=== PATIENT | female | born 1990 | race American Indian/Alaskan Native ===

== ENCOUNTER 2017-05-16 16:50 | Inpatient (IN) | payer MEDICAID ==
[2017-05-16 18:32] LABS: Hematocrit 34.3 % (30.3-42.9); Hemoglobin 11.7 gm/dl (10.1-14.3); Mean Corpuscular HGB Conc 34 % (30-34); Mean Corpuscular Hemoglobin 30 pg (28-32); Mean Corpuscular Volume 88 fl (79-97); Platelet Count 252 K/mm3 (140-440); Red Blood Count 3.88 M/mm3 (3.65-5.03); Red Cell Distribution Width 13.1 % (13.2-15.2); White Blood Count 8.1 K/mm3 (4.5-11.0)
[2017-05-16 18:39] LABS: Bilirubin,Urine NEG (Negative); Blood,Urine SM (Negative); Ketones,Urine NEG (Negative); Leukocyte Esterase,Urine SM (Negative); Mucus,Urine FEW /HPF; Nitrite,Urine NEG (Negative)
[2017-05-16 18:43] LABS: Alanine Aminotransferase 13 units/L (7-56); Lactate Dehydrogenase 150 units/L (91-180); Uric Acid 5.1 mg/dL (3.5-7.6)
[2017-05-16] MEDS: LACTATED RINGERS 1,000 ML IV SCH (21:45)
--- NOTE | 2017-05-16 21:56 | Ultrasound Report ---
FINAL REPORT EXAM: US OB FOLLOW UP HISTORY: CHRONIC HYPERTENSIVE TECHNIQUE: Obstetrical ultrasound transabdominal PRIORS: None. FINDINGS: Single live intrauterine gestation identified cardiac activity is present with heart rate of 162 beats per minute. Placenta is posterior and grade. Cervical length is 2.9 centimeters Positioning is cephalic biometric measurements were obtained Biparietal diameter 26 weeks 2 days Head circumference 26 weeks 5 days Abdominal circumference 26 weeks 2 days Femur length 26 weeks 0 days Based on today's exam estimated gestational age is 26 weeks 6 days with estimated date of delivery August 16, 2017 IMPRESSION: Single live intrauterine gestation estimated at 26 weeks 6 days
[2017-05-16] MEDS: NORMODYNE PO SCH (22:17)
[2017-05-17] MEDS: TYLENOL PO PRN ×2 (02:15→16:23)
[2017-05-17] MEDS: LACTATED RINGERS 1,000 ML IV SCH ×2 (05:26→15:58)
--- NOTE | 2017-05-17 06:49 | History and Physical Report ---
History of Present Illness Date of examination: 05/17/17 Date of admission: 05/16/17 21:14 Chief complaint: elevated BP in clinic. hx of severe preeclampsia and delviery at 27 weeks History of present illness: This is a 26 yo AMBER 08/13/17 at 27 weeks was seen in clinic and elevated BP noted of 158/82. She has been very non compliant in this only attending 3 visits at 11 weeks, 21 weeks and then most recently 27 weeks. She was sent to triage and had PIH w/u which was neg, but decided to keep patient for non compliance in which we were trying to send to [facility] for recommendations. 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 denies: smoking, alcohol abuse, prescription drug abuse - Obstetrical History Expected Date of Delivery: 08/13/17 Actual Gestation: 27 Week(s) 3 Day(s) : 8 Para: 4 Hx # Term Pregnancies: 4 Number of Pregnancies: 2 Spontaneous Abortions: 0 Induced : 1 Number of Living Children: 7 Medications and Allergies Allergies Allergy/AdvReac Type Severity Reaction Status Date / Time No Known Allergies Allergy Verified 04/10/17 22:14 Home Medications Medication Instructions Recorded Confirmed Last Taken Type Vit Calc,Iron,Folic 1 each PO DAILY #30 tablet 09/07/15 05/16/17 Unknown Rx [ Vitamins] Labetalol [Normodyne TAB] 400 mg PO BID #60 tablet 09/10/15 05/16/17 Unknown Rx NIFEdipine XL [Procardia Xl] 30 mg PO Q12HR #60 tab 09/12/15 05/16/17 Unknown Rx Active Meds: Active Medications Acetaminophen (Tylenol) 650 mg PO Q4H PRN PRN Reason: Pain, Mild (1-3) Last Admin: 05/17/17 02:15 Dose: 650 mg Lactated Ringer's (Lactated Ringers) 1,000 mls @ 125 mls/hr IV DIRECT KADI Last Admin: 05/17/17 05:26 Dose: 125 mls/hr Labetalol HCl (Normodyne) 400 mg PO BID KADI Last Admin: 05/16/17 22:17 Dose: 400 mg Review of Systems All systems: negative - Vital Signs Vital signs: Vital Signs Pulse BP 109 H 132/80 05/16/17 17:30 05/16/17 17:30 Temp Pulse Resp BP Pulse Ox 97.9 F 73 14 117/57 05/17/17 02:06 05/17/17 06:22 05/17/17 02:06 05/17/17 06:22 - Physical Exam Breasts: Positive: normal Cardiovascular: Regular rate, Normal S1 Lungs: Positive: Clear to auscultation, Normal air movement Abdomen: Positive: normal appearance, soft, normal bowel sounds. Negative: distention, tenderness, guarding Genitourinary (Female): Positive: normal external genitalia, normal perenium Vulva: both: normal Vagina: Positive: normal moisture Uterus: Positive: normal size, normal contour Anus/Rectum: Positive: normal perianal skin Extremities: Positive: normal Deep Tendon Reflex Grade: Normal +2 - Obstetrical FHR: category 1 Results Result Diagrams: 05/16/17 17:40 05/16/17 17:40 Abnormal lab results 05/16/17 05/16/17 Range/Units 17:40 17:40 RDW 13.1 L (13.2-15.2) % Creatinine 0.6 L (0.7-1.2) mg/dL All other labs normal. Ultrasound: report reviewed Assessment and Plan A/P HD#2 admitted IUP 27 weeks, non compliant, hx of preeclampsia, elevated BP in office PIH labs obtained [facility] consult ( Dr. vaca contacted) - patient very non compliant has not seen then despite multiple referrals US reviewed and noted US consistent with dates, GERARDO 15.2 , EFW 998 g FHR 162 cervical length 2.9cm, placental lakes NST q4hrs
[2017-05-17] MEDS: NORMODYNE PO SCH ×2 (10:45→22:41)
--- NOTE | 2017-05-17 14:17 | Consultation ---
History of Present Illness Consult date: 05/17/17 Requesting physician: MAGDA TURPIN History of present illness: Ms. Cuellar is a 26y/o AMBER 08/15/16 Sent in from OB's office with elevated BP's 158/82 on 26/04/17 Last PM in house BP's at 146/90 and 154/93 at 8 PM Reports HAGAN's over past couple weeks " -01/13 " Denies [place] RUQ Pain, Vag Bleeding Reports H/O CHTN since age 15 and was on Labetalol prior to -- Currently on Labetalol 400 BID BP's now 120'/60's, 125/60, 122/65. 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 Family/Genetic History: none - Obstetrical History : 8 Medications and Allergies Allergies Allergy/AdvReac Type Severity Reaction Status Date / Time No Known Allergies Allergy Verified 04/10/17 22:14 Home Medications Medication Instructions Recorded Confirmed Last Taken Type Vit Calc,Iron,Folic 1 each PO DAILY #30 tablet 09/07/15 05/16/17 Unknown Rx [ Vitamins] Labetalol [Normodyne TAB] 400 mg PO BID #60 tablet 09/10/15 05/16/17 Unknown Rx NIFEdipine XL [Procardia Xl] 30 mg PO Q12HR #60 tab 09/12/15 05/16/17 Unknown Rx Active Meds: Active Medications Acetaminophen (Tylenol) 650 mg PO Q4H PRN PRN Reason: Pain, Mild (1-3) Last Admin: 05/17/17 02:15 Dose: 650 mg Lactated Ringer's (Lactated Ringers) 1,000 mls @ 125 mls/hr IV DIRECT KADI Last Admin: 05/17/17 05:26 Dose: 125 mls/hr Labetalol HCl (Normodyne) 400 mg PO BID KADI Last Admin: 05/17/17 10:45 Dose: 400 mg - Vital Signs Vital signs: Vital Signs Pulse BP 109 H 132/80 05/16/17 17:30 05/16/17 17:30 Temp Pulse Resp BP Pulse Ox 96.2 F L 80 16 125/60 05/17/17 10:43 05/17/17 13:24 05/17/17 10:43 05/17/17 13:24 Results Result Diagrams: 05/16/17 17:40 05/16/17 17:40 Abnormal lab results 05/16/17 05/16/17 Range/Units 17:40 17:40 RDW 13.1 L (13.2-15.2) % Creatinine 0.6 L (0.7-1.2) mg/dL All other labs normal. Assessment and Plan Impression: 1. Mo IUP at 27 2/7 weeks with H/O CHTN 2. CHTN with Elevated BP's - R/O Preeclampsia 3. Prior H/O Preeclampsia at 27 weeks 4. Prior H/O PTD with Twins 5. Prior C/S 6. Non-Compliance with Follow Up Per OB Notes 7. Spont Decel X 2 Recommendations: 1. Obtain BPP 2. Continuous EFM 3. Steroids for FLM 4. If HAGAN's persisting and BP's normal would obtain Neuro Consult 5. 24 Hour urine pending 6. Confirm normal 1 Hour GTT done at ob's office 7. NICU consult 8. Continue Labetalol 9. If A-P testing remains reassuring and no S/S of Preeclampsia with severe features may consider dc tomorrow if patient can be compliant with weekly follow up and call for S/S of PIH
[2017-05-17] MEDS ORDERED: CELESTONE SOLUSPAN IM SCH (15:00)
[2017-05-17] MEDS ORDERED: ZOFRAN IV ONE (15:32)
[2017-05-17] MEDS: CELESTONE SOLUSPAN IM SCH (15:56)
[2017-05-17] MEDS ORDERED: LACTATED RINGERS 1,000 ML IV SCH (16:00)
--- NOTE | 2017-05-17 17:54 | Ultrasound Report ---
FINAL REPORT EXAM: US OB LIMITED HISTORY: well being TECHNIQUE: Ultrasound obstetrical transabdominal limited PRIORS: None. FINDINGS: Single live intrauterine gestation is present. Position is cephalic cardiac activity is present with heart rate of 154 beats per minute. Amniotic fluid volume is adequate. Amniotic fluid index 12.2 centimeters IMPRESSION: Single live intrauterine gestation in cephalic presentation Normal amniotic fluid index
--- NOTE | 2017-05-17 18:03 | Ultrasound Report ---
FINAL REPORT EXAM: US OB BPP WO NON-STRESS HISTORY: well being TECHNIQUE: Ultrasound biophysical profile PRIORS: None. FINDINGS: Single live intrauterine gestation is present with heart rate of 154 beats per minute Biophysical profile was performed respiratory motion 2 Body movement 2 tone 2 Amniotic fluid volume 2 Total 01/11 Impression Normal biophysical profile 01/11
--- NOTE | 2017-05-17 22:26 | Event Note ---
Date: 05/17/17 spoke with the nurse bp in 120-130/60-70s will decrease dose to 200 mg instead of 400 mg po bid in order to prevent bottom out patient. will reevaluate BP in am
[2017-05-18] MEDS: LACTATED RINGERS 1,000 ML IV SCH (08:02)
--- NOTE | 2017-05-18 09:28 | Consultation ---
History of Present Illness Consult date: 05/18/17 Requesting physician: TORY MOSES Reason for consult: gestational hypertension History of present illness: CONSULT BASED ON REVIEW OF MEDICAL RECORDS AND LAB TESTS. Thank you for your recent consultation regarding the above named patient. As you are aware, this is a 26 year old para [id number] at 27 weeks gestation (based on an estimated due date of 08/14/17 ) who was recently admitted for evaluation of elevated blood pressure [facility]. Previous BP: 158/82. Current BP: 115/54 The patient is currently being treated with labetalol at a dosage of 400 mg twice daily (while in the hospital). Her current admission is to rule out the possibility of induced hypertension. Her Labetalol was DECREASED from 400 BID to 200 BID overnight. Lab tests and blood pressure trend DO NOT suggest preeclampsia. The patient currently denies headache dizziness or blurred vision. PAST OBSTETRICAL HISTORY: X 4 in , , , 2012 Vag Del Twins at 27 weeks PPROM 2016 C/S at 27 weeks for Preeclampsia Recent blood pressure assessments: 124/58 and 115/54 Recent 24 hour urine shows: < 300 mg of protein. LABORATORY TESTS: See labs in chart. No evidence of HELLP syndrome 24 HOUR URINE: < 300 mg protein. 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 Family/Genetic History: none - Obstetrical History : 8 Medications and Allergies Allergies Allergy/AdvReac Type Severity Reaction Status Date / Time No Known Allergies Allergy Verified 04/10/17 22:14 Home Medications Medication Instructions Recorded Confirmed Last Taken Type Vit Calc,Iron,Folic 1 each PO DAILY #30 tablet 09/07/15 05/16/17 Unknown Rx [ Vitamins] Labetalol [Normodyne TAB] 400 mg PO BID #60 tablet 09/10/15 05/16/17 Unknown Rx NIFEdipine XL [Procardia Xl] 30 mg PO Q12HR #60 tab 09/12/15 05/16/17 Unknown Rx Active Meds: Active Medications Acetaminophen (Tylenol) 650 mg PO Q4H PRN PRN Reason: Pain, Mild (1-3) Last Admin: 05/17/17 16:23 Dose: 650 mg Betamethasone Acet/Betameth SodPhos (Celestone Soluspan) 12 mg IM Q24H KADI Stop: 05/18/17 15:01 Last Admin: 05/17/17 15:56 Dose: 12 mg Lactated Ringer's (Lactated Ringers) 1,000 mls @ 125 mls/hr IV DIRECT KADI Last Admin: 05/18/17 08:02 Dose: 125 mls/hr Lactated Ringer's (Lactated Ringers) 1,000 mls @ 125 mls/hr IV DIRECT KADI Labetalol HCl (Normodyne) 200 mg PO BID KADI Last Admin: 05/17/17 22:41 Dose: 200 mg - Vital Signs Vital signs: Vital Signs Pulse BP 109 H 132/80 05/16/17 17:30 05/16/17 17:30 Temp Pulse Resp BP Pulse Ox 97.8 F 97 H 16 135/67 98 05/18/17 07:26 05/18/17 09:26 05/18/17 07:26 05/18/17 09:15 05/18/17 09:26 Results Result Diagrams: 05/16/17 17:40 05/16/17 17:40 Abnormal lab results 05/17/17 Range/Units 22:44 Ur Total Protein 24 Hr 224.00 H (2-200) Urine Total Protein 16 H (5-11.8) mg/dL All other labs normal. Assessment and Plan ASSESSMENT 1. IUP at 27 weeks transiently elevated blood pressure . 2. 24 hour urine shows: < 300 mg of protein 3. No current evidence of superimposed preeclampsia. 4. Transient decelerations likely due to overcorrection of BP for CHTN. 5. BPP: Normal. Normal GERARDO. 6. Obstetrically Stable for DISCHARGE HOME 7. Patient complete another 24 hour urine as an outpatient within one week. 8. Patient has MILD preeclampsia but no evidence of SEVERE preeclampsia. 9. Patient is STABLE and a suitable candidate for DISCHARGE HOME. 10. We would recommend 2 time per week surveillance. 11. As you are aware: a. In a patient with MILD preeclampsia we recommend DELIVERY at 37 weeks. b. In a patient with SEVERE preeclampsia we recommend DELIVERY either AT DIAGNOSIS or at 34 weeks gestation. 12. As always, the recommendation for discontinuation of expectant management and DELIVERY in this patient would include ANY of the following: heart rate abnormalities, (ie, bradycardia , repetitive late or variable decelerations) Significant new onset proteinuria (see above) Thrombocytopenia Hemolysis, Elevation in liver function tests Blood pressure that is very labile or poorly controlled with reasonable doses of intravenous labetalol Symptoms of severe pre-eclampsia epigastric discomfort, headache, dizziness , blurred vision, RUQ pain, seizure. Standard obstetrical indications Thank you for allowing us to participate in the care of this patient. We look forward to the opportunity to assist in her continued management. If you have any questions, we may be reached [phone].
[2017-05-18] MEDS: NORMODYNE PO SCH (10:47)
--- NOTE | 2017-05-18 11:59 | Progress Note ---
Assessment and Plan A: IUP at 27w4d Gestational HTN Morbid Obesity P: Discharge home with MFM and OB follow up in the next week. Subjective - Subjective Date of service: 05/18/17 Principal diagnosis: IUP at 27w4d, gestational HTN Interval history: No overnight events .Pt would like to go home. She was seen by MFM who agree with hospital discharge. Patient reports: no new complaints Objective - Vital Signs Vital Signs: Vital Signs - 12hr 05/18/17 05/18/17 05/18/17 00:07 00:17 00:22 Temperature Pulse Rate 93 H 98 H 84 Respiratory Rate Blood Pressure Blood Pressure [Right] O2 Sat by Pulse 98 98 97 Oximetry 05/18/17 05/18/17 05/18/17 00:23 00:27 00:32 Temperature Pulse Rate 92 H 95 H 91 H Respiratory Rate Blood Pressure 130/61 Blood Pressure [Right] O2 Sat by Pulse 98 98 Oximetry 05/18/17 05/18/17 05/18/17 00:37 00:42 00:47 Temperature Pulse Rate 100 H 91 H 92 H Respiratory Rate Blood Pressure Blood Pressure [Right] O2 Sat by Pulse 98 97 97 Oximetry 05/18/17 05/18/17 05/18/17 00:52 00:57 01:02 Temperature Pulse Rate 98 H 77 93 H Respiratory Rate Blood Pressure Blood Pressure [Right] O2 Sat by Pulse 98 98 99 Oximetry 05/18/17 05/18/17 05/18/17 01:07 01:12 01:17 Temperature Pulse Rate 100 H 90 89 Respiratory Rate Blood Pressure Blood Pressure [Right] O2 Sat by Pulse 98 99 97 Oximetry 05/18/17 05/18/17 05/18/17 01:22 01:27 01:32 Temperature Pulse Rate 89 92 H 88 Respiratory Rate Blood Pressure 133/65 Blood Pressure [Right] O2 Sat by Pulse 98 98 97 Oximetry 05/18/17 05/18/17 05/18/17 01:37 01:42 01:47 Temperature Pulse Rate 94 H 89 82 Respiratory Rate Blood Pressure Blood Pressure [Right] O2 Sat by Pulse 98 98 98 Oximetry 05/18/17 05/18/17 05/18/17 01:52 01:57 02:02 Temperature Pulse Rate 77 91 H 75 Respiratory Rate Blood Pressure Blood Pressure [Right] O2 Sat by Pulse 97 98 98 Oximetry 05/18/17 05/18/17 05/18/17 02:07 02:12 02:17 Temperature Pulse Rate 91 H 77 88 Respiratory Rate Blood Pressure Blood Pressure [Right] O2 Sat by Pulse 98 98 98 Oximetry 05/18/17 05/18/17 05/18/17 02:22 02:27 02:32 Temperature Pulse Rate 76 84 74 Respiratory Rate Blood Pressure 124/59 Blood Pressure [Right] O2 Sat by Pulse 98 96 97 Oximetry 05/18/17 05/18/17 05/18/17 02:37 02:42 02:47 Temperature Pulse Rate 71 76 78 Respiratory Rate Blood Pressure Blood Pressure [Right] O2 Sat by Pulse 98 97 96 Oximetry 05/18/17 05/18/17 05/18/17 02:52 03:05 03:09 Temperature 97.9 F Pulse Rate 91 H 76 91 H Respiratory 18 Rate Blood Pressure Blood Pressure 124/59 [Right] O2 Sat by Pulse 96 98 Oximetry 05/18/17 05/18/17 05/18/17 03:18 03:22 03:23 Temperature Pulse Rate 78 91 H 92 H Respiratory Rate Blood Pressure 134/68 Blood Pressure [Right] O2 Sat by Pulse 98 96 Oximetry 05/18/17 05/18/17 05/18/17 03:28 03:33 03:38 Temperature Pulse Rate 82 76 88 Respiratory Rate Blood Pressure Blood Pressure [Right] O2 Sat by Pulse 97 96 96 Oximetry 05/18/17 05/18/17 05/18/17 03:43 03:48 03:53 Temperature Pulse Rate 87 87 76 Respiratory Rate Blood Pressure Blood Pressure [Right] O2 Sat by Pulse 96 96 96 Oximetry 05/18/17 05/18/17 05/18/17 03:58 04:03 04:08 Temperature Pulse Rate 83 99 H 95 H Respiratory Rate Blood Pressure Blood Pressure [Right] O2 Sat by Pulse 97 97 97 Oximetry 05/18/17 05/18/17 05/18/17 04:13 04:18 04:23 Temperature Pulse Rate 82 84 90 Respiratory Rate Blood Pressure 121/60 Blood Pressure [Right] O2 Sat by Pulse 97 97 95 Oximetry 05/18/17 05/18/17 05/18/17 04:29 04:34 04:39 Temperature Pulse Rate 101 H 80 78 Respiratory Rate Blood Pressure Blood Pressure [Right] O2 Sat by Pulse 95 97 97 Oximetry 05/18/17 05/18/17 05/18/17 04:44 04:49 04:54 Temperature Pulse Rate 76 74 71 Respiratory Rate Blood Pressure Blood Pressure [Right] O2 Sat by Pulse 97 96 96 Oximetry 05/18/17 05/18/17 05/18/17 04:59 05:04 05:09 Temperature Pulse Rate 80 81 85 Respiratory Rate Blood Pressure Blood Pressure [Right] O2 Sat by Pulse 97 97 96 Oximetry 05/18/17 05/18/17 05/18/17 05:14 05:19 05:22 Temperature Pulse Rate 82 82 76 Respiratory Rate Blood Pressure 124/58 Blood Pressure [Right] O2 Sat by Pulse 96 96 Oximetry 05/18/17 05/18/17 05/18/17 05:24 06:30 06:35 Temperature Pulse Rate 88 96 H 72 Respiratory Rate Blood Pressure Blood Pressure [Right] O2 Sat by Pulse 96 99 98 Oximetry 05/18/17 05/18/17 05/18/17 06:40 06:45 06:50 Temperature Pulse Rate 78 94 H 86 Respiratory Rate Blood Pressure Blood Pressure [Right] O2 Sat by Pulse 99 98 98 Oximetry 05/18/17 05/18/17 05/18/17 06:55 07:00 07:05 Temperature Pulse Rate 73 83 72 Respiratory Rate Blood Pressure Blood Pressure [Right] O2 Sat by Pulse 96 96 97 Oximetry 05/18/17 05/18/17 05/18/17 07:10 07:15 07:20 Temperature Pulse Rate 73 75 72 Respiratory Rate Blood Pressure Blood Pressure [Right] O2 Sat by Pulse 97 97 97 Oximetry 05/18/17 05/18/17 05/18/17 07:22 07:25 07:26 Temperature 97.8 F Pulse Rate 85 82 76 Respiratory 16 Rate Blood Pressure 115/54 Blood Pressure 115/54 [Right] O2 Sat by Pulse 96 97 Oximetry 05/18/17 05/18/17 05/18/17 07:30 07:35 07:40 Temperature Pulse Rate 71 75 85 Respiratory Rate Blood Pressure Blood Pressure [Right] O2 Sat by Pulse 97 97 98 Oximetry 05/18/17 05/18/17 05/18/17 07:45 07:50 07:55 Temperature Pulse Rate 107 H 89 82 Respiratory Rate Blood Pressure Blood Pressure [Right] O2 Sat by Pulse 97 97 97 Oximetry 05/18/17 05/18/17 05/18/17 08:00 08:05 08:10 Temperature Pulse Rate 81 76 61 Respiratory Rate Blood Pressure Blood Pressure [Right] O2 Sat by Pulse 97 97 97 Oximetry 05/18/17 05/18/17 05/18/17 08:15 08:20 09:15 Temperature Pulse Rate 78 94 H 96 H Respiratory Rate Blood Pressure 135/67 Blood Pressure [Right] O2 Sat by Pulse 97 98 Oximetry 05/18/17 05/18/17 05/18/17 09:16 09:21 09:26 Temperature Pulse Rate 96 H 97 H 97 H Respiratory Rate Blood Pressure Blood Pressure [Right] O2 Sat by Pulse 98 99 98 Oximetry 05/18/17 05/18/17 05/18/17 09:31 09:36 09:41 Temperature Pulse Rate 88 83 87 Respiratory Rate Blood Pressure Blood Pressure [Right] O2 Sat by Pulse 98 98 99 Oximetry 05/18/17 05/18/17 05/18/17 09:46 09:51 09:56 Temperature Pulse Rate 92 H 87 85 Respiratory Rate Blood Pressure Blood Pressure [Right] O2 Sat by Pulse 98 98 98 Oximetry 05/18/17 05/18/17 05/18/17 10:01 10:06 10:11 Temperature Pulse Rate 82 89 85 Respiratory Rate Blood Pressure Blood Pressure [Right] O2 Sat by Pulse 99 98 98 Oximetry 05/18/17 05/18/17 05/18/17 10:14 10:16 10:21 Temperature Pulse Rate 86 84 83 Respiratory Rate Blood Pressure 116/54 Blood Pressure [Right] O2 Sat by Pulse 98 98 Oximetry 05/18/17 05/18/17 05/18/17 10:26 10:47 10:50 Temperature Pulse Rate 92 H 112 H 85 Respiratory Rate Blood Pressure 123/70 Blood Pressure [Right] O2 Sat by Pulse 98 100 Oximetry 05/18/17 05/18/17 05/18/17 10:51 10:55 11:00 Temperature Pulse Rate 90 97 H 85 Respiratory Rate Blood Pressure 123/70 Blood Pressure [Right] O2 Sat by Pulse 99 99 Oximetry 05/18/17 11:14 Temperature Pulse Rate 85 Respiratory Rate Blood Pressure 118/57 Blood Pressure [Right] O2 Sat by Pulse Oximetry - Exam Breasts: deferred Abdomen: Present: soft (gravid,obese ) Uterus: Present: normal (gravid ) FHR: auscultation normal Uterine Contraction Monitor Mode: Palpation Uterine Contraction Pattern: Absent Uterine Tone Measurement Phase: Resting - Labs Labs: Abnormal Labs 05/16/17 05/16/17 05/17/17 17:40 17:40 22:44 RDW 13.1 L Creatinine 0.6 L Ur Total Protein 24 Hr 224.00 H Urine Total Protein 16 H Laboratory Results - last 24 hr 05/17/17 22:44 Urine Total Volume 1400 Ur Total Protein 24 Hr 224.00 H Urine Total Protein 16 H
[2017-05-18 14:12] VITALS: BP 134/73
--- NOTE | 2017-05-18 14:15 | Discharge Summary ---
Providers - Providers Date of Admission: 05/18/17 08:21 Date of discharge: 05/18/17 Attending physician: MAGDA TURPIN MD 05/16/17 21:20 Consult to Physician [CONS] Urgent Consulting Provider: SABRINA SANTANA Reason For Exam: CHRONIC HYPERTENSION NONCOMPLIANT Place consult to:: [facility] Notified:: [employer] Phone number called:: [phone] 05/18/17 06:11 Consult to Physician [CONS] Routine Consulting Provider: Reason For Exam: Hypertension, 27 weeks, hx ptd, Place consult to:: [facility] Phone number called:: [phone] Was contact made?: Yes If yes, spoke with:: Demar Burroughs Time called:: 06:00 Primary care physician: MAGDA TURPIN MD Hospitalization Reason for admission: other (elevated blood pressure ) Procedure details: Anti-hypertensive medication, betamethasone x 2 Discharge diagnosis: other (IUP at 27 wks, gestational HTN, morbid obesity ) Hospital course: Pt was admitted for blood pressure control. She was started on oral labetalol and had two doses of betamethasone before discharge. She will follow up with MFM and at [place] [facility] within one week. Condition at discharge: Stable Disposition: DC-01 TO HOME OR SELFCARE - Discharge Diagnoses (1) Status: Acute Qualifiers: Weeks of gestation: 27 weeks Qualified Code(s): Z3A.27 - 27 weeks gestation of (2) Morbid obesity Status: Acute (3) Gestational HTN Status: Acute (4) Chronic hypertension Status: Acute Plan - Discharge Medications Prescriptions: Labetalol [Normodyne TAB] 200 mg PO BID #60 tablet - Provider Discharge Summary Activity: routine Diet: routine Instructions: routine Additional instructions: [] Smoking cessation referral if applicable(refer to patient education folder for contact #) [] Refer to [facility] Booklet Call your doctor immediately for: * Fever > 100.5 * Heavy vaginal bleeding ( >1 pad per hour) * Severe persistent headache * Shortness of breath * Reddened, hot, painful area to leg or breast * Drainage or odor from incision. * Keep incision clean and dry at all times and follow doctor's instructions regarding bathing/showering - Follow up plan Follow up: MAGDA TURPIN MD [Primary Care Provider] - 05/23/17 ZACH GILLETTE MD [Staff Physician] - 05/23/17 ()
[2017-05-18] MEDS: CELESTONE SOLUSPAN IM SCH (14:51)
== END 2017-05-18 15:20 | disposition home or self-care (01) | DRG 781 ==
LOC: TRG 16:50 → LD 21:14 → OBSVTOIN 05-18 08:21
PROVIDERS: ADMIT Obstetrics & Gynecology; ATTEND Obstetrics & Gynecology
DX: O11.2 Pre-existing hypertension with pre-eclampsia, second trimester (principal); O99.512 Diseases of the respiratory system complicating pregnancy, second trimester; E66.01 Morbid (severe) obesity due to excess calories; J45.909 Unspecified asthma, uncomplicated; O76 Abnormality in fetal heart rate and rhythm complicating labor and delivery; Z3A.27 27 weeks gestation of pregnancy; Z68.41 Body mass index [BMI] 40.0-44.9, adult; Z71.3 Dietary counseling and surveillance; Z79.899 Other long term (current) drug therapy; Z91.19 Patient's noncompliance with other medical treatment and regimen; O10.012 Pre-existing essential hypertension complicating pregnancy, second trimester
CPT/HCPCS: 36415; 59025; 76815; 76816; 76819; 81001; 82565; 83615; 84156; 84450; 84460; 84550; 85027; G0378; J0702; J7120

== ENCOUNTER 2017-06-17 17:29 | Observation (INO) | payer MEDICAID ==
[2017-06-17] MEDS ORDERED: APRESOLINE IV ONE (18:47)
--- NOTE | 2017-06-17 19:47 | Ultrasound Report ---
FINAL REPORT PROCEDURE: US OB BPP WO NON-STRESS TECHNIQUE: Sonographic evaluation for breathing, movement, tone, and amniotic fluid volume was performed. CPT 12585 HISTORY: well being COMPARISON: No prior studies are available for comparison. FINDINGS: heart rate of 150 beats per minute was detected. Amniotic fluid volume: Normal-score 2. At least one vertical pocket > 2 cm or more in vertical axis. breathing: Normal-score 2. movement: Normal-score 2. tone: Normal. Score: 8 of 8. Further evaluation was neither requested nor performed. IMPRESSION: Limited study shows biophysical profile score of 8/8. heart rate of 150 beats per minute was detected. Further evaluation was neither requested nor performed.
--- NOTE | 2017-06-17 19:58 | Ultrasound Report ---
FINAL REPORT PROCEDURE: US OB FOLLOW UP TECHNIQUE: Real-time sonography performed for focused follow-up or re-evaluation of each size/growth parameters and amniotic fluid or re-evaluation of suspected or confirmed abnormality on prior imaging. CPT 75517 HISTORY: well being COMPARISON: Prior study 05/17/2017 FINDINGS: There is a single living intrauterine gestation currently visualized in the vertex presentation with a heart rate of 150 beats per minute. Subjectively the amount of amniotic fluid appears low normal to mildly decreased. The amniotic fluid index is 8 centimeters. The placenta is located right lateral and is grade 1. On the images provided there is no evidence of placenta abruption or placenta previa. Cervix length 3.2 centimeters. Detailed exam of the anatomy was not performed as this was not requested. MEASUREMENTS BPD: 7.8 centimeter equals 31 week 2 days. HC: 29.4 centimeter equaled 32 week 3 days. AC: 26.6 centimeter equaled 30 weeks 4 days. FL: 6.1 centimeter equaled 31 week 5 days. Mean Gestational Age (composite criteria): 31 weeks 3 days. Estimated Weight: 1725 grams +/-100 50 grams. Interval growth: Appropriate . Estimated Due Date (earliest scan): 08/16/2017 plus or minus 2.5 weeks. IMPRESSION: Single living intrauterine gestation visualized. There has been appropriate interval growth. Estimated date confinement remains at 3:13 2017 +/-2.5 weeks. Subjectively amniotic fluid volume low normal to minimally decreased. The amniotic fluid index is low normal. Consider follow-up exam to ensure adequate amniotic fluid.
[2017-06-17 20:19] LABS: Hematocrit 34.7 % (30.3-42.9); Hemoglobin 11.9 gm/dl (10.1-14.3); Mean Corpuscular HGB Conc 34 % (30-34); Mean Corpuscular Hemoglobin 29 pg (28-32); Mean Corpuscular Volume 86 fl (79-97); Platelet Count 286 K/mm3 (140-440); Red Blood Count 4.06 M/mm3 (3.65-5.03); Red Cell Distribution Width 13.3 % (13.2-15.2)
[2017-06-17] MEDS: LACTATED RINGERS 1,000 ML IV SCH (20:25)
[2017-06-17 20:30] LABS: INR 0.95 (0.87-1.13)
[2017-06-17 20:31] LABS: Partial Thromboplastin Time 30.3 Sec. (24.2-36.6)
[2017-06-17 20:40] LABS: Alanine Aminotransferase 8 units/L (7-56)
[2017-06-18] MEDS: LACTATED RINGERS 1,000 ML IV SCH (04:49)
[2017-06-18] MEDS ORDERED: NORMODYNE PO SCH (08:00)
--- NOTE | 2017-06-18 09:02 | History and Physical Report ---
History of Present Illness Date of examination: 06/18/17 Date of admission: 06/17/17 19:49 Chief complaint: s/p falling 2 days ago and elevated BP History of present illness: 26 yo at 31+4 weeks here for s/p fall 2 days ago and elevated BP. She is a patient of [facility] with hx of chronic HTN on labetolol. Past History Past Medical History: hypertension Past Surgical History: section Family/Genetic History: none Social history: single. denies: smoking, alcohol abuse, prescription drug abuse - Obstetrical History Expected Date of Delivery: 08/13/17 Actual Gestation: 32 Week(s) 0 Day(s) : 8 Para: 7 Hx # Term Pregnancies: 5 Number of Pregnancies: 2 Spontaneous Abortions: 0 Induced : 0 Number of Living Children: 7 Medications and Allergies Allergies Allergy/AdvReac Type Severity Reaction Status Date / Time No Known Allergies Allergy Verified 04/10/17 22:14 Home Medications Medication Instructions Recorded Confirmed Last Taken Type Vit Calc,Iron,Folic 1 each PO DAILY #30 tablet 09/07/15 06/17/17 10:00 Rx [ Vitamins] Labetalol [Normodyne TAB] 400 mg PO BID #60 tablet 09/10/15 06/17/17 Unknown Rx NIFEdipine XL [Procardia Xl] 30 mg PO Q12HR #60 tab 09/12/15 06/17/17 Unknown Rx Labetalol [Normodyne TAB] 200 mg PO BID #60 tablet 05/18/17 06/17/17 06/17/17 19 :00 Rx 200 mg Active Meds: Active Medications Lactated Ringer's (Lactated Ringers) 1,000 mls @ 125 mls/hr IV DIRECT [facility] Last Admin: 06/18/17 04:49 Dose: 125 mls/hr Labetalol HCl (Normodyne) 200 mg PO BID [facility] Last Admin: 06/18/17 08:07 Dose: 200 mg Review of Systems All systems: negative - Vital Signs Vital signs: Vital Signs Pulse BP 100 H 169/105 06/17/17 17:49 06/17/17 17:49 Temp Pulse Resp BP Pulse Ox 97.2 F L 77 20 142/83 99 06/18/17 07:39 06/18/17 08:53 06/18/17 07:39 06/18/17 08:33 06/18/17 08:53 - Physical Exam Breasts: Positive: normal Cardiovascular: Regular rate, Normal S1 Lungs: Positive: Clear to auscultation, Normal air movement Abdomen: Positive: normal appearance, soft, normal bowel sounds. Negative: distention, tenderness, guarding Genitourinary (Female): Positive: normal external genitalia, normal perenium Vulva: both: normal Uterus: Positive: normal size Adnexa: both: normal Anus/Rectum: Positive: normal perianal skin Extremities: Positive: normal Deep Tendon Reflex Grade: Normal +2 - Obstetrical FHR: category 1 Results Result Diagrams: 06/17/17 19:52 06/17/17 19:52 Abnormal lab results 06/17/17 Range/Units 19:52 Creatinine 0.4 L (0.7-1.2) mg/dL All other labs normal. Ultrasound: report reviewed Assessment and Plan A/P HD#1 s/p fall with elevated BP US reviewed PIH w/u and 24 hr urine continue labetolol 200 mg po bid IV hydralazine 160/110 continuous monitoring MFM consult close monitor of and maternal status
--- NOTE | 2017-06-18 11:20 | Consultation ---
History of Present Illness Consult date: 06/18/17 Requesting physician: MAGDA TURPIN History of present illness: HPI 26 y/o EGA at 32 0/7 weeks presented after fall at home. Known H/O CHTN Fall in kitchen 3 days ago on Right side. Denies vag bleeding, leaking or ctx's Pain on Side increasing "8/10" and presented to [facility] yesterday 06/17/17. US neg for abruption - EFW at 1725 grams 25% BPP 01/11 Pain now states Pain resolved H/P CHTN since age 15ex BP's on admission were elevated 170's/90's - Received IV hydralazine per nurse (Also H/O Preeclampsia and Induction at 27 weeks in 2015) Currently on Labetalol 200 BID BP's now 128/58 , 159/77, 153/73 States she received steroids 2 weeks ago when admitted for elevated BP's - reports 24 hour urine done and "normal" Denies HAGAN's Scotoma or RUQ Pain Abd NT gravid No RUQ Pain DTR's 2/4 no clonus PIH Labs Normal H/H 11.9/34 Plts at 286 AST/ALT at 04/13 OB History X 4 at term in , , , - no comps except for CHTN age 15 2012 Vag Del Twins 27 weeks PPROM 2016 Induced Vag del 27 weeks preeclampsia No STD No C/D/D NKA No surg Past History Past Medical History: hypertension Past Surgical History: section Family/Genetic History: none - Obstetrical History : 7 Medications and Allergies Allergies Allergy/AdvReac Type Severity Reaction Status Date / Time No Known Allergies Allergy Verified 04/10/17 22:14 Home Medications Medication Instructions Recorded Confirmed Last Taken Type Vit Calc,Iron,Folic 1 each PO DAILY #30 tablet 09/07/15 06/17/17 10:00 Rx [ Vitamins] Labetalol [Normodyne TAB] 400 mg PO BID #60 tablet 09/10/15 06/17/17 Unknown Rx NIFEdipine XL [Procardia Xl] 30 mg PO Q12HR #60 tab 09/12/15 06/17/17 Unknown Rx Labetalol [Normodyne TAB] 200 mg PO BID #60 tablet 05/18/17 06/17/17 06/17/17 19 :00 Rx 200 mg Active Meds: Active Medications Lactated Ringer's (Lactated Ringers) 1,000 mls @ 125 mls/hr IV DIRECT [facility] Last Admin: 06/18/17 04:49 Dose: 125 mls/hr Labetalol HCl (Normodyne) 200 mg PO BID [facility] Last Admin: 06/18/17 08:07 Dose: 200 mg - Vital Signs Vital signs: Vital Signs Pulse BP 100 H 169/105 06/17/17 17:49 06/17/17 17:49 Temp Pulse Resp BP Pulse Ox 97.2 F L 93 H 20 137/66 98 06/18/17 07:39 06/18/17 11:08 06/18/17 07:39 06/18/17 11:03 06/18/17 11:08 Results Result Diagrams: 06/17/17 19:52 06/17/17 19:52 Abnormal lab results 06/17/17 Range/Units 19:52 Creatinine 0.4 L (0.7-1.2) mg/dL All other labs normal. Assessment and Plan Impression: 1. Mo IUP at 32 0/7 weeks 2. S/P Fall - Pain Resolved 3. CHTN 4. H/O Superimposed Preeclampsia at 27 weeks Recommendations: 1. Would increase Labetalol from 200 to 300 mg BID 2. 24 Hour urine pending - May DC home when complete or earlier if she can collect it at home 3. Delivery recommended at 37 weeks or earlier for S/S of Severe Preeclampsia or compromise 4. PIH labs q week 5. Call for S/S of PIH or DFM's 6. Weekly A-P surveillance with [facility] 7. Continue baby aspirin 81 mg q day 8. Should have BP's taken 3X per week at ob, pharm and or [facility]
[2017-06-18 13:02] VITALS: BP 147/86
[2017-06-18 23:14] LABS: Creatinine 24 Hour,Urine 1.6 (0.8-2.8); Creatinine,Urine 82.9 mg/dL (0.1-20.0)
== END 2017-06-18 14:00 | disposition home or self-care (01) ==
LOC: TRG 17:29 → LD 19:49 → TRG 19:49
PROVIDERS: ADMIT Obstetrics & Gynecology; ATTEND Obstetrics & Gynecology
DX: O13.3 Gestational [pregnancy-induced] hypertension without significant proteinuria, third trimester (principal); Z3A.31 31 weeks gestation of pregnancy
CPT/HCPCS: 36415; 76816; 76819; 82565; 82570; 83615; 84156; 84450; 84460; 84550; 85027; 85610; 85730; 86850; 86900; 86901; 96361; 96374; G0378; J0360; J7120

== ENCOUNTER 2017-07-04 08:06 | Inpatient (IN) | payer MEDICAID ==
[2017-07-04] MEDS ORDERED: APRESOLINE IV ONE ×2 (08:49→16:43)
[2017-07-04 09:17] LABS: Bilirubin,Urine NEG (Negative); Blood,Urine MOD (Negative); Color,Urine Yellow (Yellow); Mucus,Urine 3+ /HPF; Nitrite,Urine NEG (Negative)
[2017-07-04] MEDS ORDERED: ZOFRAN IV PRN ×2 (09:22→15:00)
[2017-07-04] MEDS ORDERED: TYLENOL PO PRN (09:22)
[2017-07-04] MEDS ORDERED: CALCIUM GLUCONATE IV ONE (09:22)
[2017-07-04 09:36] LABS: Hematocrit 35.3 % (30.3-42.9); Mean Corpuscular HGB Conc 34 % (30-34); Mean Corpuscular Hemoglobin 29 pg (28-32); Mean Corpuscular Volume 85 fl (79-97); Platelet Count 249 K/mm3 (140-440); Red Blood Count 4.16 M/mm3 (3.65-5.03); Red Cell Distribution Width 13.2 % (13.2-15.2)
[2017-07-04] MEDS: LACTATED RINGERS 1,000 ML IV SCH ×2 (09:45→14:10)
[2017-07-04 09:53] LABS: Alanine Aminotransferase 10 units/L (7-56)
[2017-07-04] MEDS ORDERED: LACTATED RINGERS 1,000 ML IV SCH (10:00)
[2017-07-04] MEDS ORDERED: PRENATAL VITAMIN PO SCH (10:00)
[2017-07-04 10:29] LABS: Uric Acid 6.9 mg/dL (3.5-7.6)
[2017-07-04] MEDS ORDERED: MAGNESIUM SULFATE 40GM/1000ML 40 GM/1,000 ML BAG IV SCH (11:00)
[2017-07-04] MEDS ORDERED: CELESTONE SOLUSPAN IM SCH (11:00)
[2017-07-04] MEDS ORDERED: MAGNESIUM SULFATE 4GM/100ML 4 GM/100 ML BAG IV ONE (11:00)
[2017-07-04] MEDS ORDERED: LACTATED RINGERS 500 ML IV ONE (11:17)
[2017-07-04] MEDS ORDERED: MAGNESIUM SULFATE 40 GM in NACL 0.9% 1000 ML 1,000 ML IV SCH (11:30)
--- NOTE | 2017-07-04 11:37 | Ultrasound Report ---
BIOPHYSICAL PROFILE: INDICATION: Elevated blood pressure, 34 weeks IUP. COMPARISON: 06/17/2017. TECHNIQUE: Transabdominal ultrasound with Doppler interrogation. 2 - breathing movements 2 - movements 2 - posture and tone 2 - Qualitative amniotic fluid volume 8 - TOTAL SCORE OF POSSIBLE 8 Heart Rate (bpm) 145 CONCLUSION: Findings, as above.
[2017-07-04] MEDS ORDERED: NORMODYNE IV ONE (12:00)
[2017-07-04] MEDS ORDERED: CALCIUM GLUCONATE 1,000 MG in NACL 0.9% 100 ML IV ONE (12:00)
[2017-07-04] MEDS ORDERED: NORMODYNE PO ONE (12:00)
--- NOTE | 2017-07-04 13:30 | Consultation ---
History of Present Illness Reason for consult: other (Patient is 26 yo BF Presented to Labor & Delivery 07/04/17 for lower ABD pain . Patient followed by [facility] for CHTN, Morbid Obesity, and History of Superimposed PreEclampsia at 27 weeks. [facility] appointment on 06/30/17 33.5 weeks EFW 1987 gm 4'6" ( 14%) Bilateral Ventriculomegaly BPP of 10/10 . NIPT was performed -awaiting result . 06/30/17 BP was 146/81 mm Hg under Labetalol 200 mg PO BID. 07/04/17 During [facility] consultation S/P hydralazine and Labetlol SIVP BP of 190/109 mm Hg , patient reported increased H/A and edema . Positive urine output. Patient denied scotoma, epigastric pain , visual changes , and N/V . Rescue dose of BMZ for 07/04/17 @ 1039 am .) Past History - Obstetrical History : 7 Medications and Allergies Allergies Allergy/AdvReac Type Severity Reaction Status Date / Time No Known Allergies Allergy Verified 04/10/17 22:14 Home Medications Medication Instructions Recorded Confirmed Last Taken Type Vit Calc,Iron,Folic 1 each PO DAILY #30 tablet 09/07/15 07/04/17 1 Day Ago Rx [ Vitamins] ~07/03/17 Labetalol [Normodyne TAB] 200 mg PO BID #60 tablet 05/18/17 07/04/17 07/04/17 06 :30 Rx Active Meds: Active Medications Acetaminophen (Tylenol) 650 mg PO Q4H PRN PRN Reason: Pain MILD(1-3)/Fever >100.5/HAGAN Betamethasone Acet/Betameth SodPhos (Celestone Soluspan) 12 mg IM Q24H [facility] Stop: 07/05/17 11:01 Last Admin: 07/04/17 10:35 Dose: 12 mg Docusate Sodium (Colace) 100 mg PO Q12H PRN PRN Reason: Constipation Lactated Ringer's (Lactated Ringers) 1,000 mls @ 125 mls/hr IV DIRECT [facility] Last Admin: 07/04/17 09:45 Dose: 125 mls/hr Lactated Ringer's (Lactated Ringers) 1,000 mls @ 125 mls/hr IV DIRECT [facility] Magnesium Sulfate 40 gm/ (Sodium Chloride) 1,080 mls @ 27 mls/hr IV DIRECT [facility] PRN Reason: 1 GM/HR Last Admin: 07/04/17 11:02 Dose: 1 gm/hr, 25 mls/hr Labetalol HCl (Normodyne) 400 mg PO BID [facility] Multivitamins/Iron/Calcium ( Vitamin) 1 each PO QDAY [facility] Last Admin: 07/04/17 11:17 Dose: 1 each Ondansetron HCl (Zofran) 4 mg IV Q6H PRN PRN Reason: Nausea And Vomiting Last Admin: 07/04/17 10:41 Dose: 4 mg Review of Systems Constitutional: no fever, no chills Ears, nose, mouth and throat: headache (increased since 430 am ), no swelling in throat Cardiovascular: edema, high blood pressure (CHTN moderate BP control under current medical regimen ), leg edema, no rapid/irregular heart beat, no syncope , no shortness of breath Respiratory: no shortness of breath Breasts: deferred Gastrointestinal: no nausea, no vomiting, no indigestion Genitourinary: pelvic pain, no vaginal bleeding, no vaginal discharge, no leakage of fluid Rectal Exam: deferred Musculoskeletal: no low back pain Integumentary: no rash, no pruritis Neurological: headaches, no seizures, no double vision Endocrine: no polyuria Hematologic/Lymphatic: no easy bruising, no easy bleeding Allergic/Immunologic: no wheezing - Vital Signs Vital signs: Vital Signs Temp Pulse Resp BP Pulse Ox 98.6 F 78 20 210/112 98 07/04/17 08:32 07/04/17 08:32 07/04/17 08:32 07/04/17 08:32 07/04/17 08:32 Temp Pulse Resp BP Pulse Ox 98.0 F 109 H 18 190/109 98 07/04/17 09:53 07/04/17 13:16 07/04/17 09:53 07/04/17 13:14 07/04/17 13:16 - Physical Exam Breasts: Positive: deferred Cardiovascular: Regular rate Lungs: Positive: Normal air movement Abdomen: Negative: tenderness, guarding Uterus: Negative: tender Extremities: Positive: edema Deep Tendon Reflex Grade: Normal but brisk +3 - Obstetrical FHR: category 1 Uterine Contraction Monitor Mode: External Uterine Contraction Pattern: Absent Uterine Tone Measurement Phase: soft gravid Results Result Diagrams: 07/04/17 08:45 07/04/17 08:45 Abnormal lab results 07/04/17 Range/Units 08:45 Creatinine 0.4 L (0.7-1.2) mg/dL Lactate Dehydrogenase 259 H (91-180) units/L All other labs normal. Ultrasound: report reviewed (Preliminary report from 07/04/17: SUIP 34.2 weeks VTX GERARDO of 8.2 cm + FHT 163 AUA 32.5 weeks EFW 1874 gm Slightly dilated lateral ventricle BPP 8/8 + FHT 145 ) Assessment and Plan A) IUP @ 34.2 weeks CHTN since age of 15y.o. Moderate BP control under current medical regimen S/P Hydralazine / Labetalol SIVP - BP 166/96 and 190/109 mm Hg Reported H/A and edema Superimposed PreEclampsia Elevated LDH 24 hr urine in progress however U/A 100 mg Protein History of Superimposed PreEclampsia at 27 weeks MgSO4 in progress S/P rescue BMZ for FLM 07/04/17 Morbid Obesity Previous history of C/S 06/30/17 [facility] assessment-Bilateral ventriculomegaly NIPT - lab in progress [facility] US -EFW 1874 gm ( 4%) IUGR [facility] BPP - 8/[address] Byrne BP management Delivery due Superimposed PreEclampsia with CHTN Notify NICU Strict I + O PIH labs Placenta to pathology MgSO4 for 24 hours after delivery
--- NOTE | 2017-07-04 14:24 | Anesthesia Consultation ---
Anesthesia Consult and Med Hx Date of service: 07/04/17 - Airway Anesthetic Teeth Evaluation: Good ROM Head & Neck: Adequate Mental/Hyoid Distance: Adequate Mallampati Class: Class III Intubation Access Assessment: Possibly Difficult - Pre-Operative Health Status ASA Pre-Surgery Classification: ASA3 Proposed Anesthetic Plan: Epidural, Spinal - Pulmonary Hx Asthma: No COPD: No Hx Pneumonia: No - Cardiovascular System Hx Hypertension: Yes ( PIH on chronic ) - Central Nervous System Hx Seizures: No Hx Psychiatric Problems: No - Endocrine Hx Renal Disease: No Hx End Stage Renal Disease: No Hx Hypothyroidism: No Hx Hyperthyroidism: No - Hematic Hx Anemia: No Hx Sickle Cell Disease: No - Other Systems Hx Alcohol Use: No Hx Obesity: Yes (BMI 43.9)
--- NOTE | 2017-07-04 14:24 | Anesthesia Day of Surgery ---
Anesthesia Day of Surgery - Day of Surgery Patient Examined: Yes Patient H&P Reviewed: Yes Patient is NPO: Yes
--- NOTE | 2017-07-04 14:35 | History and Physical Report ---
History of Present Illness Date of examination: 07/04/17 Date of admission: 07/04/17 10:41 Chief complaint: stomach pain History of present illness: Pt is a 26 year old -[place] AMBER 08/13/17 at 34w2d who presents with c/o stomach pain but was found to have blood pressures 150-200s/80-110s with headache and increased lower extremity edema. She reports movement and denies vaginal bleeding or leakage of fluid. She has had insufficient care x 4 visits with [facility] since 11 wks with no visit between 11 and 21 weeks and 21 and 27 wks. She has been comanaged by [facility] secondary to morbid obesity and chronic hypertension on Labetalol 200 mg BID. She has glucose intolerance with a normal 3 hr GTT and genital herpes without lesion or prodrome. She is GBS unknown. She has a h/o one previous section at 27 wks for preeclampsia in 2016. Past History Past Medical History: asthma, hypertension, other (obesity ) Past Surgical History: section [employer] History: herpes Family/Genetic History: none Social history: no significant social history - Obstetrical History Expected Date of Delivery: 08/13/17 Actual Gestation: 34 Week(s) 2 Day(s) : 8 Para: 7 Hx # Term Pregnancies: 4 Number of Pregnancies: 2 Spontaneous Abortions: 0 Induced : 1 Number of Living Children: 7 Medications and Allergies Allergies Allergy/AdvReac Type Severity Reaction Status Date / Time No Known Allergies Allergy Verified 04/10/17 22:14 Home Medications Medication Instructions Recorded Confirmed Last Taken Type Vit Calc,Iron,Folic 1 each PO DAILY #30 tablet 09/07/15 07/04/17 1 Day Ago Rx [ Vitamins] ~07/03/17 Labetalol [Normodyne TAB] 200 mg PO BID #60 tablet 05/18/17 07/04/17 07/04/17 06 :30 Rx Active Meds: Active Medications Acetaminophen (Tylenol) 650 mg PO Q4H PRN PRN Reason: Pain MILD(1-3)/Fever >100.5/HAGAN Betamethasone Acet/Betameth SodPhos (Celestone Soluspan) 12 mg IM Q24H [facility] Stop: 07/05/17 11:01 Last Admin: 07/04/17 10:35 Dose: 12 mg Citric Acid/Sodium Citrate (Bicitra) 30 ml PO ONCE ONE Stop: 07/04/17 15:01 Diphenhydramine HCl (Benadryl) 12.5 mg IV Q2H PRN PRN Reason: Itching Docusate Sodium (Colace) 100 mg PO Q12H PRN PRN Reason: Constipation Famotidine (Pepcid) 20 mg IV ONCE ONE Stop: 07/04/17 15:01 Hydromorphone HCl (Dilaudid) 0.5 mg IV Q4H PRN PRN Reason: breakthrough pain > 7/10 Lactated Ringer's (Lactated Ringers) 1,000 mls @ 125 mls/hr IV DIRECT [facility] Last Admin: 07/04/17 09:45 Dose: 125 mls/hr Lactated Ringer's (Lactated Ringers) 1,000 mls @ 125 mls/hr IV DIRECT [facility] Magnesium Sulfate 40 gm/ (Sodium Chloride) 1,080 mls @ 27 mls/hr IV DIRECT [facility] PRN Reason: 1 GM/HR Last Admin: 07/04/17 11:02 Dose: 1 gm/hr, 25 mls/hr Cefazolin Sodium (Ancef/Sterile Water 2 Gm/20 Ml) 2 gm in 20 mls @ 80 mls/hr IV PREOP NR PRN Reason: Protocol Stop: 07/04/17 23:00 Oxytocin/Sodium Chloride (Pitocin/Ns 20 Unit/1000ml Drip) 20 units in 1,000 mls @ 0 mls/hr IV TITR [facility] PRN Reason: As Directed Ketorolac Tromethamine (Toradol) 30 mg IV Q6H PRN PRN Reason: Pain, Moderate (4-6) Stop: 07/09/17 14:24 Labetalol HCl (Normodyne) 400 mg PO BID [facility] Metoclopramide HCl (Reglan) 10 mg IV ONCE [facility] Stop: 07/04/17 23:00 Multivitamins/Iron/Calcium ( Vitamin) 1 each PO QDAY [facility] Last Admin: 07/04/17 11:17 Dose: 1 each Naloxone HCl (Narcan 0.4 Mg/1 Ml) 0.2 mg IV Q2MIN PRN PRN Reason: Res Rate </= 8 or 02 SAT < 92% Ondansetron HCl (Zofran) 4 mg IV Q6H PRN PRN Reason: Nausea And Vomiting Last Admin: 07/04/17 10:41 Dose: 4 mg Ondansetron HCl (Zofran) 4 mg IV Q8H PRN PRN Reason: Nausea And Vomiting Promethazine HCl (Phenergan) 25 mg PO Q6H PRN PRN Reason: Nausea And Vomiting Promethazine HCl (Phenergan) 25 mg MA Q6H PRN PRN Reason: Nausea And Vomiting Sodium Chloride (Sodium Chloride Flush Syringe 10 Ml) 10 ml IV PRN NR Review of Systems All systems: negative - Vital Signs Vital signs: Vital Signs Temp Pulse Resp BP Pulse Ox 98.6 F 78 20 210/112 98 07/04/17 08:32 07/04/17 08:32 07/04/17 08:32 07/04/17 08:32 07/04/17 08:32 Temp Pulse Resp BP Pulse Ox 98.0 F 115 H 18 173/109 98 07/04/17 09:53 07/04/17 14:36 07/04/17 09:53 07/04/17 14:24 07/04/17 14:36 - Physical Exam Breasts: Positive: deferred Cardiovascular: Regular rate Lungs: Positive: Clear to auscultation Abdomen: Positive: soft (obese, gravid ) Uterus: Positive: enlarged (gravid ) Extremities: Positive: edema - Obstetrical FHR: auscultation normal Uterine Contraction Monitor Mode: External Uterine Contraction Pattern: Absent Uterine Tone Measurement Phase: Resting Results Result Diagrams: 07/04/17 08:45 07/04/17 08:45 Abnormal lab results 07/04/17 Range/Units 08:45 Creatinine 0.4 L (0.7-1.2) mg/dL Lactate Dehydrogenase 259 H (91-180) units/L All other labs normal. Assessment and Plan A: IUP at 34w2d s/p 2 doses of betamethasone in May and booster dose today Chronic hypertension with superimposed preeclampsia on magnesium sulfate Morbid Obesity Previous x 1 Glucose Intolerance Genital Herpes GBS unknown Pt declines tubal ligation s/p MFM recommendation for delivery P: Proceed with repeat section and other indicated procedures.
[2017-07-04] MEDS ORDERED: REGLAN IV SCH (15:00)
[2017-07-04] MEDS ORDERED: ANCEF/STERILE WATER 2 GM/20 ML 2 GM/20 ML SYRINGE IV NR (15:00)
[2017-07-04] MEDS ORDERED: DILAUDID IV PRN (15:00)
[2017-07-04] MEDS ORDERED: SODIUM CHLORIDE FLUSH SYRINGE 10 ML IV PRN (15:00)
[2017-07-04] MEDS ORDERED: ANCEF/STERILE WATER 2 GM/20 ML IV ONE ×2 (15:00→15:08)
[2017-07-04] MEDS ORDERED: PHENERGAN PO PRN (15:00)
[2017-07-04] MEDS ORDERED: NARCAN 0.4 MG/1 ML IV PRN ×2 (15:00→18:45)
[2017-07-04] MEDS ORDERED: TORADOL IV PRN (15:00)
[2017-07-04] MEDS ORDERED: PHENERGAN PR PRN (15:00)
[2017-07-04] MEDS ORDERED: PEPCID IV ONE (15:00)
[2017-07-04] MEDS ORDERED: BICITRA PO ONE (15:00)
[2017-07-04] MEDS ORDERED: NACL 0.9% IR ONE (15:15)
[2017-07-04] MEDS ORDERED: WATER FOR IRRIG STERILE IR ONE (15:15)
[2017-07-04] MEDS: PITOCin/NS 20 UNIT/1000ML DRIP 20 UNITS/1,000 ML BAG IV SCH ×2 (15:27→17:30)
[2017-07-04] MEDS ORDERED: ASTRAMORPH PF 10MG/10ML ONE (15:46)
--- NOTE | 2017-07-04 16:17 | Procedure Note ---
OB Delivery Note - Delivery Date of Delivery: 07/04/17 Surgeon: TORY MOSES Estimated blood loss: other (700 mL) - Section Preop diagnosis: repeat , other (Chronic HTN with superimposed preeclampsia ) Postop diagnosis: same section procedure: section, repeat low transverse Disposition: PACU Complications: none Narrative: Please see operative report. - A at 1 minute: 8 at 5 minutes: 9 Infant Gender: Male (2018g (4lb 7oz) @ 1525 pm)
--- NOTE | 2017-07-04 16:22 | Operative Report ---
Operative Report Operative Report: Date of procedure: July 04, 2017 Preoperative diagnosis: 1) IUP at 34w2d 2) Chronic HTN with superimposed preeclampsia 3) Previous x 1 4) Morbid Obesity Postoperative diagnosis: Same Procedure: Repeat low transverse section Surgeon: Taylor Hernandez M.D. Anesthesia: Spinal-epidural Findings: 1) Viable male , Apgars 8 and 9, weight 2018g, (4 lb 7 oz) in cephalic presentation. Nuchal cord x 2 2) Normal-appearing uterus ovaries and tubes Estimated blood loss: 700 mL IV fluids: 1200 mL Urine output: 100 mL, clear at the end of the procedure Drains: Luna to gravity Specimens: Placenta to pathology Complications: None. Counts correct x 3 Disposition: Stable to PACU Indication for procedure: Pt is a 26 year old at 34w2d with a h/o one previous who presents with chronic hypertension with superimposed preeclampsia. The decision was made to proceed with repeat section. Pt declined tubal ligation today. Operation in detail: After the risks, benefits, alternatives and complications were explained to the patient she gave informed consent for the procedure. She was subsequently taken to the operating room where spinal-epidural anesthesia was noted to be adequate. She was subsequently placed in the dorsal supine position with leftward tilt and prepped and draped in a normal sterile fashion. heart tones were noted to be in the 150s prior to incision. A timeout was performed. A Pfannenstiel skin incision was made with the knife and carried down to the layer of the fascia with the Bovie. The fascia was incised in the midline and the fascial incision was extended bilaterally with the Bovie. Attention was then turned to the superior aspect of the incision which was grasped with two Kochers, tented up, and dissected off the rectus muscles. Attention was then turned to the inferior aspect of the incision which was grasped with two Kochers , tented up and dissected off the rectus muscles. The rectus muscles were then in the midline. The peritoneum was then entered bluntly. The peritoneal incision was extended with good visualization of the bladder. The peritoneal incision was then stretched. An Avi self-retaining retractor was placed for visualization. The bladder blade was placed. The vesicouterine peritoneum was grasped with smooth pickups and incised with Metzenbaum scissors. Metzenbaum scissors were used to extend the incision bilaterally. The bladder flap was then created digitally and the bladder blade was replaced. A transverse incision was made in the lower uterine segment with a knife and extended bilaterally with the bandage scissors. The head was delivered without difficulty followed by shoulders and body. was bulb suctioned at delivery. The cord was clamped and cut and the was handed to NICU staff in attendance. Cord blood was collected. The placenta was then delivered manually. The uterus was then cleared of all clots and debris. The hysterotomy was then reapproximated with 0 Vicryl in a running locked fashion. A second layer of the same suture was used in imbricating fashion. A figure of eight of 2-0 Vicryl was used on the left side of the hysterotomy to obtain hemostasis. The hysterotomy was inspected and hemostasis was noted. The Avi self-retaining retractor was removed. The gutters were irrigated and cleared of all clots and debris. The hysterotomy was again inspected and noted to be hemostatic. Surgicel was placed over the hysterotomy. The peritoneum was reapproximated with 2-0 Vicryl in a running fashion incorporating the rectus muscles. The rectus muscles were covered with Surgicel. The fascia was reapproximated with 0 Vicryl in a running fashion. The subcutaneous tissue was reapproximated with 3- 0 Vicryl in a running fashion. The skin was reapproximated with 4-0 Vicryl in a subcuticular fashion. The incision was then covered with steri strips and a pressure dressing. The procedure was then ended. The patient tolerated the procedure well and was taken to the PACU in stable condition. All instrument, lap, and needle counts were correct 3.
[2017-07-04] MEDS ORDERED: ZOFRAN ONE (16:24)
[2017-07-04] MEDS ORDERED: NEO SYNEPHRINE/NS Syringe(OR USE) IV ONE (16:24)
[2017-07-04] MEDS ORDERED: APRESOLINE IV PRN (16:34)
[2017-07-04] MEDS ORDERED: SODIUM CHLORIDE FLUSH SYRINGE 10 ML IV SCH (18:45)
[2017-07-04] MEDS ORDERED: PITOCin/NS 20 UNIT/1000ML DRIP 20 UNITS/1,000 ML BAG IV SCH (18:45)
[2017-07-04] MEDS ORDERED: TUCKS PAD TP PRN (18:45)
[2017-07-04] MEDS ORDERED: D5LR 1,000 ML IV SCH (18:45)
[2017-07-04] MEDS ORDERED: MORPHINE IV PRN ×2 (18:45)
[2017-07-04] MEDS ORDERED: ANCEF/NS 1 GM/50 ML 1 GM/50 ML BAG IV SCH (18:45)
[2017-07-04] MEDS ORDERED: MYLICON PO PRN (18:45)
[2017-07-04] MEDS ORDERED: LANSINOH TP PRN (18:45)
[2017-07-04] MEDS ORDERED: NORMODYNE PO SCH (22:00)
[2017-07-04] MEDS: NORMODYNE PO SCH (22:29)
[2017-07-04] MEDS: BENADRYL IV PRN (22:34)
[2017-07-04] MEDS: ceFAZolin 1 GM in NACL 0.9% 20 ML IV SCH (23:50)
[2017-07-05] MEDS ORDERED: BOOSTRIX IM ONE (06:00)
[2017-07-05 06:39] LABS: Hematocrit 33.4 % (30.3-42.9); Hemoglobin 11.3 gm/dl (10.1-14.3)
--- NOTE | 2017-07-05 07:42 | Ultrasound Report ---
OB ULTRASOUND History well being, hypertension. Technique: Transabdominal ultrasound with Doppler interrogation. Comparison: 06/17/17. Gestation: Single Position: Cephalic Amniotic Fluid: Within normal limits GERARDO = 8.2 cm as opposed to 8.0 cm on the previous exam Placenta: Posterior, right lateral Placental Grade: 2 Heart Rate: 163 BPM BPD: 8.2 cm = 32 w 6 d HC: 30.7 cm = 34 w 2 d AC: 27.1 cm = 31 w 1 d FL: 6.3 cm = 32 w 3 d HC/AC Ratio: 1.13 Cephalic Index: 75.8 Estimated Weight: 1874 grams Clinical age = 34 w 2 d EDC: 08/13/17 US Gest. Age = 32 w 5 d EDC: 08/24/17 IMPRESSION: Viable, single intrauterine as described. No acute abnormality is identified. Appropriate growth since the previous exam. GERARDO is essentially unchanged but within normal limits measuring 8.2 cm.
--- NOTE | 2017-07-05 08:57 | Progress Note ---
Assessment and Plan - Patient Problems (1) Previous delivery affecting Current Visit: Yes Status: Acute Plan to address problem: patient doing well routine postoperative care Subjective - Subjective Date of service: 07/05/17 Interval history: Patient without complaints. Tolerated regular diet. Pain well controlled. Luna has not been removed as of yet. Patient plans to ambulate today Patient reports: appetite normal, pain well controlled [place]: doing well Objective - Vital Signs Latest vital signs: Vital Signs Temp Pulse Resp BP BP BP Pulse Ox 07/05/17 08:17 98.6 F 77 18 118/68 07/05/17 06:21 98.9 F 75 20 126/74 98 07/05/17 04:22 98.9 F 89 20 127/77 95 07/05/17 02:23 99.0 F 84 20 136/77 95 07/04/17 23:38 98.7 F 82 20 153/82 96 07/04/17 22:29 98 H 145/87 07/04/17 22:24 98 H 145/87 07/04/17 20:34 98.9 F 104 H 20 159/74 96 07/04/17 18:55 97.5 F L 94 H 18 137/88 07/04/17 18:11 137/88 07/04/17 17:42 99.7 F H 07/04/17 17:40 111 H 14 149/94 97 07/04/17 17:35 112 H 9 L 149/87 97 07/04/17 17:34 110 H 166/99 07/04/17 17:30 112 H 12 155/97 97 07/04/17 17:25 115 H 17 166/99 98 07/04/17 17:20 106 H 12 156/99 97 07/04/17 17:15 109 H 15 161/102 97 07/04/17 17:10 107 H 13 158/101 97 07/04/17 17:05 101 H 15 172/96 98 07/04/17 17:00 99 H 18 160/93 98 07/04/17 16:55 100 H 18 171/103 97 07/04/17 16:50 82 14 176/104 96 07/04/17 16:45 92 H 19 178/105 98 07/04/17 16:40 87 16 171/105 98 07/04/17 16:35 98.3 F 93 H 12 157/112 99 07/04/17 16:30 87 14 172/94 99 07/04/17 16:29 99 07/04/17 14:37 106 H 183/100 07/04/17 14:36 115 H 98 07/04/17 14:31 108 H 98 07/04/17 14:30 99.0 F 18 07/04/17 14:26 103 H 98 07/04/17 14:24 107 H 173/109 07/04/17 14:21 109 H 98 07/04/17 14:16 113 H 99 07/04/17 14:11 110 H 98 07/04/17 14:07 113 H 189/98 07/04/17 14:06 110 H 98 07/04/17 14:01 111 H 98 07/04/17 13:56 109 H 98 07/04/17 13:52 104 H 176/101 07/04/17 13:51 106 H 98 07/04/17 13:46 110 H 98 07/04/17 13:41 111 H 98 07/04/17 13:37 107 H 180/100 07/04/17 13:36 107 H 97 07/04/17 13:31 107 H 98 07/04/17 13:26 105 H 98 07/04/17 13:22 108 H 166/101 07/04/17 13:21 105 H 98 07/04/17 13:16 109 H 98 07/04/17 13:14 106 H 190/109 07/04/17 13:11 103 H 98 07/04/17 13:07 111 H 166/96 07/04/17 13:06 103 H 98 07/04/17 13:01 105 H 98 07/04/17 12:56 109 H 98 07/04/17 12:52 107 H 154/89 07/04/17 12:51 103 H 97 07/04/17 12:46 102 H 98 07/04/17 12:41 102 H 98 07/04/17 12:37 100 H 184/101 07/04/17 12:36 98 H 98 07/04/17 12:31 102 H 98 07/04/17 12:26 105 H 98 07/04/17 12:22 100 H 143/99 07/04/17 12:21 102 H 98 07/04/17 12:16 100 H 98 01/29/18 12:11 111 H 98 07/04/17 12:09 112 H 189/111 07/04/17 12:07 110 H 189/111 07/04/17 11:52 108 H 181/101 07/04/17 11:39 106 H 181/100 07/04/17 11:22 106 H 191/107 07/04/17 11:18 110 H 189/109 07/04/17 11:11 110 H 189/109 07/04/17 11:09 112 H 186/125 07/04/17 10:52 106 H 159/85 07/04/17 10:37 104 H 183/86 07/04/17 10:22 103 H 189/98 07/04/17 10:07 105 H 182/114 07/04/17 09:53 98.0 F 18 07/04/17 09:51 81 205/121 07/04/17 09:45 205/121 07/04/17 09:32 81 188/119 07/04/17 09:17 88 181/105 07/04/17 09:02 81 183/110 07/04/17 08:58 85 99 Intake and Output 07/04/17 07/05/17 07/05/17 22:59 06:59 14:59 Intake Total 2012.5 320 90 Output Total 275 650 Balance 1737.5 -330 90 Intake: IV 2012.5 PITOCin/NS 20 UNIT/1000ML 512.5 DRIP 20 units In 1,000 ml @ As Directed IV TITR KADI Rx#:[id number] Oral 90 Intake, Free Water 320 Output: Urine 275 650 Indwelling Catheter 650 Other: Total, Intake Amount 90 Total, Output Amount 150 Estimated Blood Loss 700 - Exam Abdomen: Present: normal appearance, soft Incision: Present: dressed - Labs Labs: Abnormal lab results 07/04/17 07/04/17 07/05/17 Range/Units 08:45 21:50 05:35 Creatinine 0.4 L (0.7-1.2) mg/dL Magnesium 3.10 H 3.60 H (1.7-2.3) mg/dL Lactate Dehydrogenase 259 H (91-180) units/L
[2017-07-05] MEDS: ceFAZolin 1 GM in NACL 0.9% 20 ML IV SCH (10:41)
[2017-07-05] MEDS: NORMODYNE PO SCH ×2 (12:00→21:36)
--- NOTE | 2017-07-05 12:16 | Progress Note ---
Subjective Date of service: 07/05/17 Interval history: 1st POD after Patient is in the bed, comfortable. Pain is well controlled with pain meds. Has not ambulated yet due to Mg2SO4 infusion. No residual neurological deficit. No anesthesia complications Objective - Constitutional Vitals: Vital Signs - 12hr 07/05/17 07/05/17 07/05/17 02:23 04:22 06:21 Temperature 99.0 F 98.9 F 98.9 F Pulse Rate 84 89 75 Respiratory 20 20 20 Rate Blood Pressure 136/77 127/77 126/74 Blood Pressure [Right] O2 Sat by Pulse 95 95 98 Oximetry 07/05/17 07/05/17 07/05/17 08:17 10:24 10:42 Temperature 98.6 F Pulse Rate 77 71 79 Respiratory 18 18 Rate Blood Pressure Blood Pressure 118/68 124/58 129/66 [Right] O2 Sat by Pulse Oximetry - Labs CBC & Chem 7: 07/05/17 05:35 07/04/17 08:45 Labs: Abnormal lab results 07/04/17 07/05/17 07/05/17 Range/Units 21:50 05:35 09:30 Magnesium 3.10 H 3.60 H 3.30 H (1.7-2.3) mg/dL
[2017-07-05] MEDS: COLACE PO PRN (13:01)
[2017-07-05] MEDS: BENADRYL IV PRN ×2 (13:01→21:37)
[2017-07-05] MEDS ORDERED: M-M-R II VACCINE SUB-Q ONE (16:25)
[2017-07-05] MEDS: MILK OF MAGNESIA PO SCH ×2 (19:30→21:37)
[2017-07-05] MEDS: PERCOCET 5/325 PO PRN (21:36)
[2017-07-06] MEDS: PERCOCET 5/325 PO PRN ×2 (05:00→17:33)
--- NOTE | 2017-07-06 08:18 | Progress Note ---
Assessment and Plan A/P POD#2 s/p repeat c/sec s/p Mag 24 hrs VSS routine postop care consdier d/c home tomorrow baby doing well in nicu Subjective - Subjective Date of service: 07/06/17 Principal diagnosis: s/p repeat c/sec Patient reports: appetite normal, voiding normally, pain well controlled, flatus , bowel movement, ambulating normally [place]: doing well, in NICU Objective - Vital Signs Latest vital signs: Vital Signs Temp Pulse Resp BP BP BP Pulse Ox 07/06/17 04:15 98.2 F 84 18 137/83 07/06/17 00:00 98.4 F 72 20 140/73 07/05/17 21:36 91 H 147/87 07/05/17 21:33 99.6 F 91 H 20 147/87 97 07/05/17 20:30 98.0 F 87 20 133/75 07/05/17 15:32 98.5 F 75 18 115/75 07/05/17 12:55 70 18 121/69 07/05/17 10:42 79 129/66 07/05/17 10:24 71 18 124/58 07/05/17 08:17 98.6 F 77 18 118/68 Intake and Output 07/05/17 07/06/17 07/06/17 23:59 07:59 15:59 Intake Total 120 240 Balance 120 240 Intake: Oral 120 240 Other: Total, Intake Amount 120 240 # Voids Void 1 1 # Bowel Movements 1 - Exam Breasts: Present: normal Cardiovascular: Present: Regular rate, Normal S1 Lungs: Present: Clear to auscultation, Normal air movement Abdomen: Present: normal appearance, soft, normal bowel sounds. Absent: distention, tenderness, guarding Vulva: both: normal Uterus: Present: normal, firm, fundal height below umbilicus. Absent: bogginess , tenderness Extremities: Present: normal Deep Tendon Reflex Grade: Normal +2 Incision: Present: normal, dry, dressed - Labs Labs: Abnormal lab results 07/05/17 Range/Units 09:30 Magnesium 3.30 H (1.7-2.3) mg/dL
--- NOTE | 2017-07-06 08:20 | Discharge Summary ---
Providers - Providers Date of Admission: 07/04/17 10:41 Date of discharge: 07/07/17 Attending physician: TORY MOSES 07/04/17 09:27 Consult to Physician [CONS] Routine Consulting Provider: SABRINA SANTANA Reason For Exam: IUP at 34 wks, chronic htn, rule out preeclampsi Place consult to:: ALEXSANDRA Notified:: Madan Phone number called:: [phone] Was contact made?: Yes If yes, spoke with:: Madan Time called:: 11:15 07/04/17 18:45 Consult to [employer] [CONS] Routine Reason For Exam: Primary care physician: MAGDA TURPIN MD Hospitalization Reason for admission: other Delivery: Procedure: repeat low transverse Episiotomy: none Laceration: none Incision: normal, dry, intact Other procedures: none complications: none Discharge diagnosis: delivery baby: male Condition at discharge: Good Disposition: DC-01 TO HOME OR SELFCARE Plan - Discharge Medications Prescriptions: Ibuprofen [Motrin] 800 mg PO Q8HR PRN #60 tablet PRN Reason: Pain Oxycodone HCl/Acetaminophen [Percocet 7.5/325 mg] 1 each PO Q6HR PRN #45 tablet PRN Reason: Pain - Provider Discharge Summary Activity: routine, no sex for 6 weeks, no strenuous exercise Diet: routine Instructions: routine Additional instructions: [] Smoking cessation referral if applicable(refer to patient education folder for contact #) [] Refer to [facility] Booklet Call your doctor immediately for: * Fever > 100.5 * Heavy vaginal bleeding ( >1 pad per hour) * Severe persistent headache * Shortness of breath * Reddened, hot, painful area to leg or breast * Drainage or odor from incision. * Keep incision clean and dry at all times and follow doctor's instructions regarding bathing/showering - Follow up plan Follow up: MAGDA TURPIN MD [Primary Care Provider] - 14 Days
[2017-07-06] MEDS: NORMODYNE PO SCH ×2 (10:30→21:16)
[2017-07-06] MEDS: MOTRIN PO PRN ×2 (12:12→21:30)
[2017-07-06] MEDS ORDERED: PROCARDIA XL PO ONE (17:02)
--- NOTE | 2017-07-07 08:37 | Progress Note ---
Assessment and Plan O: BP as noted A: Post Op Day 3 CHTN- Elevated BP's S/p Repeat C/S P: Increase Procardia 60mg QD Delay discharge Subjective - Subjective Date of service: 07/07/17 Principal diagnosis: s/p repeat c/sec Patient reports: appetite normal, voiding normally, pain well controlled, ambulating normally, other (Denies HAGAN, blurred vision, epigastric pain, or scotomata) [place]: doing well Objective - Vital Signs Latest vital signs: Vital Signs Temp Pulse Resp BP BP Pulse Ox 07/07/17 03:27 98.9 F 73 18 139/79 07/06/17 23:36 98 F 70 18 130/74 07/06/17 20:40 98.6 F 69 18 147/73 07/06/17 16:30 98.5 F 84 20 162/110 98 07/06/17 12:49 97.9 F 89 20 156/97 07/06/17 10:30 160/90 Intake and Output 07/06/17 07/07/17 07/07/17 22:59 06:59 14:59 Intake Total 240 480 Balance 240 480 Intake: Intake, Free Water 240 480 Other: # Voids Indwelling Catheter 1 Void 1 - Exam Narrative Exam: BP: 154/107, 160/107, 161/93 this am Breasts: Present: deferred Abdomen: Present: normal appearance, soft, normal bowel sounds. Absent: distention, tenderness Vulva: both: normal Uterus: Present: normal. Absent: firm, bogginess, fundal height below umbilicus Extremities: Present: normal Deep Tendon Reflex Grade: Absent 0 Incision: Present: normal, dry, intact
[2017-07-07] MEDS ORDERED: PROCARDIA XL PO SCH ×2 (10:00)
[2017-07-07] MEDS: COLACE PO PRN (10:19)
[2017-07-07] MEDS: NORMODYNE PO SCH (10:21)
[2017-07-07] MEDS: MOTRIN PO PRN (13:53)
--- NOTE | 2017-07-07 17:43 | Event Note ---
Date: 07/07/17 Blood pressures remain elevated after increase of procardia to 60mgXL daily. RN reports negative PIH S&S. Pt consuming fried fast food. MD consult. Dr. Fraser. New orders received. Discharge cancelled
[2017-07-07] MEDS ORDERED: PROCARDIA XL PO ONE (18:00)
[2017-07-07] MEDS ORDERED: NORMODYNE PO SCH (20:00)
[2017-07-08] MEDS ORDERED: PROCARDIA XL PO SCH (08:00)
[2017-07-08] MEDS ORDERED: PROCARDIA XL PO NR ×2 (08:30)
--- NOTE | 2017-07-08 08:56 | Event Note ---
Date: 07/08/17 Blood pressures overnight labile. Plan increase medication to Labetalol 400 mg BID and Procardia XL 90 daily. Will observe pt for a few hours prior to discharge. Pt is anxious to get home to her one year old who has been admitted to another hospital.
[2017-07-08] MEDS ORDERED: NORMODYNE PO SCH (09:00)
[2017-07-08 11:09] VITALS: BP 138/96
[2017-07-09] MEDS ORDERED: PROCARDIA XL PO SCH (10:00)
== END 2017-07-08 11:15 | disposition home or self-care (01) | DRG 765 ==
LOC: TRG 08:06 → LD 10:41 → OBSVTOIN 10:41 → OB 18:22
PROVIDERS: ADMIT Obstetrics & Gynecology; ATTEND Obstetrics & Gynecology
PROC: 10D00Z1 Extraction of Products of Conception, Low, Open Approach (ICD-10-PCS; principal; 2017-07-04)
PROC: 3E0234Z Introduction of Serum, Toxoid and Vaccine into Muscle, Percutaneous Approach (ICD-10-PCS; 2017-07-05)
DX: O11.4 Pre-existing hypertension with pre-eclampsia, complicating childbirth (principal); O60.14X0 Preterm labor third trimester with preterm delivery third trimester, not applicable or unspecified; O98.32 Other infections with a predominantly sexual mode of transmission complicating childbirth; Z68.41 Body mass index [BMI] 40.0-44.9, adult; O34.211 Maternal care for low transverse scar from previous cesarean delivery; O99.214 Obesity complicating childbirth; A60.00 Herpesviral infection of urogenital system, unspecified; O69.81X0 Labor and delivery complicated by cord around neck, without compression, not applicable or unspecified; E66.01 Morbid (severe) obesity due to excess calories; Z3A.34 34 weeks gestation of pregnancy; Z37.0 Single live birth; Z71.3 Dietary counseling and surveillance; Z23 Encounter for immunization
CPT/HCPCS: 36415; 76816; 76819; 81001; 82565; 83615; 83735; 84450; 84460; 84550; 85014; 85018; 85027; 86850; 86900; 86901; 88307; 93005; 93010; 99211; G0463; J0360; J0610; J0690; J0702; J1170; J1200; J1885; J2274; J2370; J2405; J2590; J2765; J3475; J7030; J7120

== ENCOUNTER 2018-08-14 18:38 | Outpatient (CLI) | payer MEDICAID ==
[2018-08-14 20:53] VITALS: BP 146/89
[2018-08-14 20:55] LABS: Bacteria,Urine 1+ /HPF (Negative); Bilirubin,Urine NEG (Negative); Blood,Urine NEG (Negative); Color,Urine Yellow (Yellow); Mucus,Urine FEW /HPF; Protein,Urine <15 mg/dL mg/dL (Negative); Urobilinogen,Urine < 2.0 mg/dL (<2.0)
[2018-08-14] MEDS ORDERED: LACTATED RINGERS 1,000 ML IV ONE (21:01)
== END 2018-08-14 21:23 | disposition home or self-care (01) ==
LOC: TRG 18:38
PROVIDERS: ATTEND Obstetrics & Gynecology
DX: O47.03 False labor before 37 completed weeks of gestation, third trimester (principal); O13.3 Gestational [pregnancy-induced] hypertension without significant proteinuria, third trimester; O99.513 Diseases of the respiratory system complicating pregnancy, third trimester; J45.909 Unspecified asthma, uncomplicated; Z3A.32 32 weeks gestation of pregnancy
CPT/HCPCS: 59025; 81001

== ENCOUNTER 2018-08-27 09:54 | Observation (INO) | payer MEDICAID ==
[2018-08-27] MEDS ORDERED: LACTATED RINGERS 1,000 ML IV ONE (10:35)
[2018-08-27 11:15] LABS: Bilirubin,Urine NEG (Negative); Blood,Urine SM (Negative); Mucus,Urine 1+ /HPF; Protein,Urine <15 mg/dL mg/dL (Negative)
[2018-08-27 11:16] LABS: Color,Urine Yellow (Yellow)
[2018-08-27 12:07] LABS: Hematocrit 32.5 % (30.3-42.9); Hemoglobin 11.1 gm/dl (10.1-14.3); Mean Corpuscular HGB Conc 34 % (30-34); Mean Corpuscular Volume 85 fl (79-97); Platelet Count 258 K/mm3 (140-440); Red Blood Count 3.81 M/mm3 (3.65-5.03); Red Cell Distribution Width 14.3 % (13.2-15.2)
[2018-08-27] MEDS: NORMODYNE PO SCH ×2 (12:15→23:40)
[2018-08-27 12:18] LABS: Alanine Aminotransferase 8 units/L (7-56); Uric Acid 5.8 mg/dL (3.5-7.6)
--- NOTE | 2018-08-27 13:11 | History and Physical Report ---
History of Present Illness Date of examination: 08/27/18 Chief complaint: vaginal spotting History of present illness: 27y/o @ 34+4 weeks presents with vaginal spotting. The patient course is complicated grand multiparity. She has had minimal care during the . The patient has a history or preeclampsia and prior delivery x 2. Cervical exam at presentation was 4cm intact. The patient is having minimal contractions. Past History Past Medical History: asthma, hypertension Past Surgical History: section Social history: single - Obstetrical History Expected Date of Delivery: 10/04/18 Actual Gestation: 34 Week(s) 4 Day(s) : 9 Para: 6 Hx # Term Pregnancies: 4 Number of Pregnancies: 2 Spontaneous Abortions: 0 Induced : 1 Number of Living Children: 8 (one twin delivery) Medications and Allergies Allergies Allergy/AdvReac Type Severity Reaction Status Date / Time No Known Allergies Allergy Verified 04/10/17 22:14 Home Medications Medication Instructions Recorded Confirmed Last Taken Type Vit Calc,Iron,Folic 1 each PO DAILY #30 tablet 09/07/15 07/04/17 1 Day Ago Rx [ Vitamins] ~07/03/17 Labetalol [Normodyne TAB] 200 mg PO BID #60 tablet 05/18/17 07/04/17 07/04/17 06:30 Rx Ibuprofen [Motrin] 800 mg PO Q8HR PRN #60 tablet 07/05/17 Unknown Rx Oxycodone HCl/Acetaminophen 1 each PO Q6HR PRN #45 tablet 07/05/17 Unknown Rx [Percocet 7.5/325 mg] Labetalol [Normodyne] 400 mg PO BID #120 tablet 07/08/17 Unknown Rx NIFEdipine XL [Procardia Xl] 90 mg PO QDAY #30 tablet 07/08/17 Unknown Rx Labetalol [Normodyne TAB] 100 mg PO BID #60 tablet 04/15/18 Unknown Rx Active Meds: Active Medications Labetalol HCl (Normodyne) 200 mg PO BID KADI Last Admin: 08/27/18 12:15 Dose: 200 mg Documented by: Review of Systems Genitourinary: vaginal bleeding - Vital Signs Vital signs: Vital Signs Pulse BP 90 144/100 08/27/18 10:07 08/27/18 10:07 Temp Pulse Resp BP Pulse Ox 98.1 F 86 145/74 08/27/18 10:13 08/27/18 13:02 08/27/18 13:02 - Physical Exam Breasts: Positive: deferred Cardiovascular: Regular rate Lungs: Positive: Clear to auscultation Results Result Diagrams: 08/27/18 11:30 08/27/18 11:30 Abnormal lab results 08/27/18 08/27/18 Range/Units 10:55 11:30 Creatinine 0.4 L (0.7-1.2) mg/dL Lactate Dehydrogenase 208 H (91-180) units/L Urine WBC (Auto) 11.0 H (0.0-6.0) /HPF All other labs normal. Assessment and Plan - Patient Problems (1) Insufficient care Current Visit: Yes Status: Acute Plan to address problem: admit for observation will initiate 24hr urine collection (2) Grand multiparity Current Visit: Yes Status: Acute (3) labor Current Visit: Yes Status: Acute (4) Chronic hypertension Current Visit: No Status: Acute
[2018-08-27] MEDS ORDERED: TYLENOL PO PRN (13:14)
[2018-08-27] MEDS ORDERED: COLACE PO PRN (13:14)
[2018-08-27] MEDS ORDERED: PRENATAL VITAMIN PO SCH (14:00)
[2018-08-27] MEDS ORDERED: LACTATED RINGERS 1,000 ML IV SCH (14:00)
[2018-08-27] MEDS: CELESTONE SOLUSPAN IM SCH (15:29)
--- NOTE | 2018-08-28 08:37 | Progress Note ---
Assessment and Plan - Patient Problems (1) Insufficient care Current Visit: Yes Status: Acute (2) Grand multiparity Current Visit: Yes Status: Acute (3) labor Current Visit: Yes Status: Acute Plan to address problem: patient remains stable clinically awaiting results of 24hr urine (4) Chronic hypertension Current Visit: No Status: Acute Subjective - Subjective Date of service: 08/28/18 Interval history: Patient without any significant complaints. Will complete 24hr urine today. Will recheck cervix and if stable will discharge home. Improvement in blood pressures with 200mg dose of labetalol. Patient reports: no new complaints Objective - Vital Signs Vital Signs: Vital Signs - 12hr 08/27/18 08/27/18 08/28/18 23:35 23:40 05:18 Temperature Pulse Rate 100 H 100 H 83 Respiratory Rate Blood Pressure 136/76 136/76 137/92 Blood Pressure [Right] 08/28/18 08/28/18 07:43 07:44 Temperature 97.4 F L Pulse Rate 77 77 Respiratory 18 Rate Blood Pressure 145/84 Blood Pressure 145/84 [Right] - Labs Labs: Abnormal Labs 08/27/18 08/27/18 10:55 11:30 Creatinine 0.4 L Lactate Dehydrogenase 208 H Urine WBC (Auto) 11.0 H Laboratory Results - last 24 hr 08/27/18 08/27/18 08/27/18 10:55 11:30 11:30 WBC 6.9 RBC 3.81 Hgb 11.1 Hct 32.5 MCV 85 MCH 29 MCHC 34 RDW 14.3 Plt Count 258 Creatinine 0.4 L Estimated GFR > 60 Uric Acid 5.8 AST 13 ALT 8 Lactate Dehydrogenase 208 H Urine Color Yellow Urine Turbidity Clear Urine pH 6.0 Ur Specific Martin 1.025 Urine Protein <15 mg/dl Urine Glucose (UA) Neg Urine Ketones Neg Urine Blood Sm Urine Nitrite Neg Urine Bilirubin Neg Urine Urobilinogen 4.0 Ur Leukocyte Esterase Mod Urine WBC (Auto) 11.0 H Urine RBC (Auto) 6.0 U Epithel Cells (Auto) 5.0 Urine Mucus 1+ Blood Type Antibody Screen 08/27/18 11:30 WBC RBC Hgb Hct MCV MCH MCHC RDW Plt Count Creatinine Estimated GFR Uric Acid AST ALT Lactate Dehydrogenase Urine Color Urine Turbidity Urine pH Ur Specific Martin Urine Protein Urine Glucose (UA) Urine Ketones Urine Blood Urine Nitrite Urine Bilirubin Urine Urobilinogen Ur Leukocyte Esterase Urine WBC (Auto) Urine RBC (Auto) U Epithel Cells (Auto) Urine Mucus Blood Type O POSITIVE Antibody Screen Negative
[2018-08-28] MEDS: NORMODYNE PO SCH (10:24)
[2018-08-28] MEDS: CELESTONE SOLUSPAN IM SCH (15:42)
[2018-08-28 15:45] VITALS: BP 143/71
--- NOTE | 2018-08-28 16:32 | Discharge Summary ---
Providers - Providers Date of Admission: 08/27/18 10:35 Date of discharge: 08/28/18 Attending physician: JUAN REA Primary care physician: JUAN REA Hospitalization Reason for admission: labor Discharge diagnosis: other ( labor) Hospital course: Patient presented with complaint of vaginal spotting. She denied having regular contractions. The patient was found to be 4cm intact in triage. Her course was complicated by elevated blood pressures for which she takes labetalol. The patient was admitted for labs, 24hr urine, and observation of contractions. She had no further cervical change and her 24hr urine protein was 273mg. The patient was discharged home on bedrest Condition at discharge: Fair Disposition: DC-01 TO HOME OR SELFCARE - Discharge Diagnoses (1) Insufficient care Status: Acute (2) Grand multiparity Status: Acute (3) labor Status: Acute (4) Chronic hypertension Status: Acute Plan - Provider Discharge Summary Activity: no sex for 6 weeks, no heavy lifting 4 weeks, no strenuous exercise Additional instructions: [] Smoking cessation referral if applicable(refer to patient education folder for contact #) [] Refer to [facility] Booklet Call your doctor immediately for: * Fever > 100.5 * Heavy vaginal bleeding ( >1 pad per hour) * Severe persistent headache * Shortness of breath * Reddened, hot, painful area to leg or breast * schedule OB appt this week - Follow up plan
== END 2018-08-28 17:30 | disposition home or self-care (01) ==
LOC: TRG 09:54 → INTOOBSV 10:35 → LD 10:35
PROVIDERS: ADMIT Obstetrics & Gynecology; ATTEND Obstetrics & Gynecology
DX: O47.03 False labor before 37 completed weeks of gestation, third trimester (principal); O99.513 Diseases of the respiratory system complicating pregnancy, third trimester; J45.909 Unspecified asthma, uncomplicated; O10.013 Pre-existing essential hypertension complicating pregnancy, third trimester; Z3A.34 34 weeks gestation of pregnancy
CPT/HCPCS: 36415; 81001; 82565; 83615; 84156; 84450; 84460; 84550; 85027; 86850; 86900; 86901; 96372; G0378; J0702; J7120

== ENCOUNTER 2018-09-05 10:55 | Outpatient (CLI) | payer MEDICAID ==
[2018-09-05] MEDS ORDERED: NORMODYNE PO SCH (12:09)
[2018-09-05 12:27] LABS: Hemoglobin 11.3 gm/dl (10.1-14.3); Mean Corpuscular HGB Conc 34 % (30-34); Mean Corpuscular Volume 84 fl (79-97); Platelet Count 353 K/mm3 (140-440); Red Blood Count 3.92 M/mm3 (3.65-5.03); Red Cell Distribution Width 14.5 % (13.2-15.2)
[2018-09-05 12:27] LABS: Bilirubin,Urine NEG (Negative); Blood,Urine NEG (Negative); Color,Urine Yellow (Yellow); Mucus,Urine FEW /HPF; Protein,Urine <15 mg/dL mg/dL (Negative)
[2018-09-05 12:52] LABS: Alanine Aminotransferase 11 units/L (7-56); Uric Acid 6.8 mg/dL (3.5-7.6)
--- NOTE | 2018-09-05 15:01 | Ultrasound Report ---
ULTRASOUND BIOPHYSICAL PROFILE: History: BPP, increased blood pressure Technique: Transabdominal ultrasound with Doppler interrogation. 2 - breathing movements 2 - movements 2 - posture and tone 2 - Qualitative amniotic fluid volume 8 - TOTAL SCORE OF POSSIBLE 8 Heart Rate (bpm) 140
--- NOTE | 2018-09-05 15:08 | Ultrasound Report ---
OB ULTRASOUND History GERARDO, weight, increased blood pressure. Technique: Transabdominal ultrasound with Doppler interrogation. Gestation: Single Position: Cephalic Amniotic Fluid: Normal GERARDO = 11.2 cm Heart Rate: 140 BPM BPD: 8.5 cm = 34 w 2 d HC: 31.2 cm = 34 w 6 d AC: 32 cm = 35 w 6 d FL: 6.8 cm = 34 w 5 d HC/AC Ratio: 0.97 Cephalic Index: 83.9 Estimated Weight: 2643 grams Clinical age = 35 w 6 d EDC: 10/04/18 US Gest. Age = 35 w 0 d EDC: 10/10/18 IMPRESSION: Viable, single intrauterine as described.
[2018-09-05 15:32] VITALS: BP 120/70
== END 2018-09-05 16:12 | disposition home or self-care (01) ==
LOC: TRG 10:55
PROVIDERS: ATTEND Obstetrics & Gynecology
DX: O47.03 False labor before 37 completed weeks of gestation, third trimester (principal); O13.3 Gestational [pregnancy-induced] hypertension without significant proteinuria, third trimester; O99.513 Diseases of the respiratory system complicating pregnancy, third trimester; J45.909 Unspecified asthma, uncomplicated; Z3A.36 36 weeks gestation of pregnancy
CPT/HCPCS: 36415; 76816; 76819; 81001; 82565; 83615; 84450; 84460; 84550; 85027

== ENCOUNTER 2018-09-13 05:08 | Inpatient (IN) | payer MEDICAID ==
--- NOTE | 2018-09-12 16:45 | History and Physical Report ---
History of Present Illness Date of examination: 09/12/18 Chief complaint: scheduled section History of present illness: Pt is 27 year old -[place] AMBER 10/04/18 by 37 wks with a h/o chronic hypertension on labetalol 200 mg BID with superimposed preeclampsia with a h/o 2 previous section presents for scheduled section. She reports good movement. She was found to have elevated blood pressures 160/100 but pt did not follow up as instructed. She has been non-compliant with her blood pressure medication throughout her course. She has had limited care at [facility] since 25 wks complicate by late entry to care, obesity, h/o delivery, chronic hypertension on medication, genital herpes without lesion or prodrome, abnormal pap smear. She is GBS negative. 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 Family/Genetic History: none Social history: no significant social history - Obstetrical History Expected Date of Delivery: 10/04/18 Actual Gestation: 37 Week(s) 0 Day(s) : 9 Para: 7 Hx # Term Pregnancies: 4 Number of Pregnancies: 2 Spontaneous Abortions: 1 Induced : 7 Medications and Allergies Allergies Allergy/AdvReac Type Severity Reaction Status Date / Time No Known Allergies Allergy Verified 04/10/17 22:14 Home Medications Medication Instructions Recorded Confirmed Last Taken Type Vit Calc,Iron,Folic 1 each PO DAILY #30 tablet 09/07/15 07/04/17 1 Day Ago Rx [ Vitamins] ~07/03/17 Labetalol [Normodyne TAB] 200 mg PO BID #60 tablet 05/18/17 07/04/17 07/04/17 06:30 Rx Ibuprofen [Motrin] 800 mg PO Q8HR PRN #60 tablet 07/05/17 Unknown Rx Oxycodone HCl/Acetaminophen 1 each PO Q6HR PRN #45 tablet 07/05/17 Unknown Rx [Percocet 7.5/325 mg] Labetalol [Normodyne] 400 mg PO BID #120 tablet 07/08/17 Unknown Rx NIFEdipine XL [Procardia Xl] 90 mg PO QDAY #30 tablet 07/08/17 Unknown Rx Labetalol [Normodyne TAB] 100 mg PO BID #60 tablet 04/15/18 Unknown Rx Active Meds: Active Medications Citric Acid/Sodium Citrate (Bicitra) 30 ml PO ONCE ONE Stop: 09/13/18 05:01 Famotidine (Pepcid) 20 mg IV ONCE ONE Stop: 09/13/18 05:01 Cefazolin Sodium (Ancef/Sterile Water 2 Gm/20 Ml) 2 gm in 20 mls @ 80 mls/hr IV PREOP NR; Protocol Lactated Ringer's (Lactated Ringers) 1,000 mls @ 2,250 mls/hr IV PREOP KADI Stop: 09/14/18 05:27 Oxytocin/Sodium Chloride (Pitocin/Ns 20 Unit/1000ml Drip) 20 units in 1,000 mls @ 0 mls/hr IV TITR KADI Metoclopramide HCl (Reglan) 10 mg IV ONCE ONE Stop: 09/13/18 05:01 Review of Systems All systems: negative - Physical Exam Breasts: Positive: deferred Cardiovascular: Regular rate Lungs: Positive: Clear to auscultation Abdomen: Positive: normal appearance (obese, gravid ) Genitourinary (Female): Positive: normal external genitalia Uterus: Positive: enlarged (gravid ) Extremities: Positive: normal - Obstetrical FHR: auscultation normal Uterine Contraction Monitor Mode: External Uterine Contraction Pattern: Absent Uterine Tone Measurement Phase: Resting Results Result Diagrams: 09/13/18 05:45 All other labs normal. Assessment and Plan A: IUP at 37w0d Chronic HTN with superimposed preeclampsia Morbid Obesity Previous x 2 Genital Herpes Insufficient care P: Proceed with repeat section and other indicated procedures.
[~2018-09-13 05:08] MED LIST: ANCEF/STERILE WATER 2 GM/20 ML 2 GM/20 ML SYRINGE IV NR; PITOCin/NS 20 UNIT/1000ML DRIP 20 UNITS/1,000 ML BAG IV SCH
[2018-09-13] MEDS ORDERED: REGLAN IV ONE (06:00)
[2018-09-13] MEDS ORDERED: BICITRA PO ONE (06:00)
[2018-09-13] MEDS ORDERED: PEPCID IV ONE (06:00)
[2018-09-13 06:18] LABS: Basophils # (Auto) 0.1 K/mm3 (0.0-0.1); Basophils % (Auto) 0.7 % (0.0-1.8); Eosinophils # (Auto) 0.1 K/mm3 (0.0-0.4); Eosinophils % (Auto) 0.8 % (0.0-4.3); Hematocrit 31.8 % (30.3-42.9); Hemoglobin 10.9 gm/dl (10.1-14.3); Lymphocytes # (Auto) 2.4 K/mm3 (1.2-5.4); Lymphocytes % (Auto) 33.7 % (13.4-35.0); Mean Corpuscular HGB Conc 34 % (30-34); Mean Corpuscular Volume 85 fl (79-97); Monocytes # (Auto) 0.5 K/mm3 (0.0-0.8); Monocytes % (Auto) 7.5 % (0.0-7.3); Platelet Count 246 K/mm3 (140-440); Red Blood Count 3.73 M/mm3 (3.65-5.03); Red Cell Distribution Width 14.6 % (13.2-15.2)
[2018-09-13] MEDS: LACTATED RINGERS 1,000 ML IV SCH ×2 (07:23→07:24)
[2018-09-13] MEDS ORDERED: ASTRAMORPH PF 10MG/10ML ONE (07:25)
[2018-09-13] MEDS ORDERED: NEO SYNEPHRINE ONE (08:17)
[2018-09-13] MEDS ORDERED: DILAUDID ONE (09:05)
--- NOTE | 2018-09-13 09:05 | Procedure Note ---
OB Delivery Note - Delivery Date of Delivery: 09/13/18 Surgeon: TORY MOSES Estimated blood loss: other (700 mL) - Section Preop diagnosis: repeat , other (chronic hypertension with superimposed preeclampsia ) Postop diagnosis: same section procedure: section, repeat low transverse Disposition: PACU Complications: none Narrative: Please see operative report. - Infant A at 1 minute: 8 at 5 minutes: 4 (; 8) Infant Gender: Male (3139g (6lb 15 oz) @ 0810 am)
--- NOTE | 2018-09-13 09:11 | Operative Report ---
Operative Report Operative Report: Date of procedure: September 13, 2018 Preoperative diagnosis: 1) IUP at 37w0d 2) Chronic HTN with superimposed pree clampsia 3) Previous x 2 3) Morbid Obesity Postoperative diagnosis: Same Procedure: Repeat low transverse section Surgeon: Taylor Hernandez M.D. Anesthesia: Spinal Findings: 1) Viable male , Apgars 8, 4 and 8, weight 3139g, (6 lb 15 oz) in cephalic presentation 2) Normal-appearing uterus ovaries and tubes Estimated blood loss: 700 mL IV fluids: 1600 mL Urine output: 150 mL, clear at the end of the procedure Drains: Luna to gravity Specimens: Placenta to pathology Complications:None. Counts correct x 3 Disposition: Stable to PACU Indication for procedure: Pt is a 27 year old -[place] female at 37 wks with chronic hypertension with superimposed preeclampsia and a history of two prior sections presents for delivery. Operation in detail: After the risks, benefits, alternatives and complications were explained to the patient she gave informed consent for the procedure. She was subsequently taken to the operating room wheres spinal anesthesia was noted to be adequate. She was subsequently placed in the dorsal supine position with leftward tilt and prepped and draped in a normal sterile fashion. heart tones were noted to be in the 160s prior to incision. A timeout was performed. A Pfannenstiel skin incision was made with the knife and carried down to the layer of the fascia with the Bovie. The fascia was incised in the midline and the fascial incision was extended bilaterally with the Bovie. Attention was then turned to the superior aspect of the incision which was grasped with two Kochers, tented up, and dissected off the rectus muscles. Attention was then turned to the inferior aspect of the incision which was grasped with two Kochers, tented up and dissected off the rectus muscles. The rectus muscles were then in the midline and partially transected for adequate visualization. The peritoneum was then entered bluntly. The peritoneal incision was extended with good visualization of the bladder. The peritoneal incision was then stretched. An Avi self-retaining retractor was placed for visualization. The bladder blade was placed. The vesicouterine peritoneum was grasped with smooth pickups and incised with Metzenbaum scissors. Metzenbaum scissors were used to extend the incision bilaterally. The bladder flap was then created digitally and the bladder blade was replaced. A transverse incision was made in the lower uterine segment with a knife and extended bilaterally with the bandage scissors. The head was delivered without difficulty followed by shoulders and body. was bulb suctioned at delivery. The cord was clamped and cut and the was handed to NICU staff in attendance. Cord blood was collected. The placenta was then delivered manually. The uterus was then cleared of all clots and debris. The hysterotomy was then reapproximated with 0 Vicryl in a running locked fashion. A second layer of the same suture was used in imbricating fashion. The hysterotomy was inspected and hemostasis was noted. The Avi self-retaining retractor was removed. The gutters were irrigated and cleared of all clots and debris. The hysterotomy was again inspected and noted to be hemostatic. Surgicel was placed over the hysterotomy. The peritoneum was reapproximated with 2-0 Vicryl in a running fashion incorporating the rectus muscles. The fascia was reapproximated with 0 Vicryl in a running fashion. The skin was reapproximated with []. The incision was then covered with steri strips and a pressure dressing. The procedure was then ended. The patient tolerated the procedure well and was taken to the PACU in stable condition. All instrument, lap, and needle counts were correct 3.
--- NOTE | 2018-09-13 10:40 | Anesthesia Consultation ---
Anesthesia Consult and Med Hx Date of service: 09/13/18 - Airway Anesthetic Teeth Evaluation: Good ROM Head & Neck: Adequate Mental/Hyoid Distance: Adequate Mallampati Class: Class II Intubation Access Assessment: Good - Pulmonary Exam CTA: Yes - Cardiac Exam Cardiac Exam: RRR - Pre-Operative Health Status ASA Pre-Surgery Classification: ASA3 Proposed Anesthetic Plan: Spinal - Pulmonary Hx Smoking: No Hx Asthma: Yes Hx Respiratory Symptoms: No SOB: No COPD: No Home Oxygen Therapy: No Hx Pneumonia: No Hx Sleep Apnea: No - Cardiovascular System Hx Hypertension: Yes Hx Coronary Artery Disease: No Hx Heart Attack/AMI: No Hx Angina: No Hx Percutaneous Transluminal Coronary Angioplasty (PTCA): No Hx Cardia Arrhythmia: No Hx Pacemaker: No Hx Internal Defibrillator: No Hx Valvular Heart Disease: No Hx Heart Murmur: No Hx Peripheral Vascular Disease: No - Central Nervous System Hx Neuromuscular Disorder: No Hx Seizures: No CVA: No Hx Back Pain: No Hx Psychiatric Problems: No - Gastrointestinal Hx Ulcer: No Hx Gastroesophageal Reflux Disease: No - Endocrine Hx Renal Disease: No Hx End Stage Renal Disease: No Hx Cirrhosis: No Hx Liver Disease: No Hx Insulin Dependent Diabetes: No Hx Non-Insulin Dependent Diabetes: No Hx Thyroid Disease: No Hx Hypothyroidism: No Hx Hyperthyroidism: No - Hematic Hx Anemia: No Hx Sickle Cell Disease: No - Other Systems Hx Alcohol Use: Yes Hx Substance Use: No Hx Cancer: No Hx Obesity: Yes (BMI 43.9)
[2018-09-13] MEDS ORDERED: MYLICON PO PRN (10:41)
[2018-09-13] MEDS ORDERED: ZOFRAN IV PRN (10:41)
[2018-09-13] MEDS ORDERED: APRESOLINE IV PRN (10:41)
[2018-09-13] MEDS ORDERED: PITOCin/NS 20 UNIT/1000ML DRIP 20 UNITS/1,000 ML BAG IV SCH (10:41)
[2018-09-13] MEDS ORDERED: TUCKS PAD TP PRN (10:41)
[2018-09-13] MEDS ORDERED: SODIUM CHLORIDE FLUSH SYRINGE 10 ML IV SCH (10:41)
[2018-09-13] MEDS ORDERED: NARCAN 0.4 MG/1 ML IV PRN (10:41)
[2018-09-13] MEDS ORDERED: LANSINOH TP PRN (10:41)
--- NOTE | 2018-09-13 10:41 | Post Anesthesia Evaluation ---
- Post Anesthesia Evaluation Patient Participated: Yes Airway Patent: Yes Stable Respiratory Function: Yes Nausea/Vomiting: No Temp > 96.8F: Yes Pain Manageable: Yes Adequeate Hydration: Yes Anesthesia Complications: No Block Receding Appropriately: Yes Patient on Ventilator: No
--- NOTE | 2018-09-13 10:41 | Anesthesia Day of Surgery ---
Anesthesia Day of Surgery - Day of Surgery Patient Examined: Yes Patient H&P Reviewed: Yes Patient is NPO: Yes Beta Blockers: Yes Cardiac Clearance: No Pulmonary Clearance: No Heath's Test: N/A
[2018-09-13] MEDS: NUBAIN IV PRN ×2 (11:20→21:15)
[2018-09-13] MEDS ORDERED: MAGNESIUM SULFATE 4GM/100ML 4 GM/100 ML BAG IV ONE (11:30)
[2018-09-13] MEDS: TORADOL IV PRN ×2 (11:35→18:30)
[2018-09-13] MEDS ORDERED: LACTATED RINGERS 1,000 ML IV SCH (11:41)
[2018-09-13] MEDS ORDERED: MAGNESIUM SULFATE 40GM/1000ML 40 GM/1,000 ML BAG IV SCH (11:41)
[2018-09-13] MEDS ORDERED: D5LR 1,000 ML IV SCH (11:41)
[2018-09-13] MEDS ORDERED: CYTOTEC PR ONE (12:29)
[2018-09-13] MEDS: ANCEF/NS 1 GM/50 ML 1 GM/50 ML BAG IV SCH (16:30)
[2018-09-13 21:31] LABS: Hematocrit 30.1 % (30.3-42.9); Hemoglobin 10.4 gm/dl (10.1-14.3)
[2018-09-14] MEDS: NUBAIN IV PRN (00:40)
[2018-09-14] MEDS: ANCEF/NS 1 GM/50 ML 1 GM/50 ML BAG IV SCH (00:44)
[2018-09-14] MEDS ORDERED: BOOSTRIX IM ONE (06:00)
[2018-09-14] MEDS ORDERED: M-M-R II VACCINE SUB-Q ONE (09:08)
--- NOTE | 2018-09-14 09:09 | Progress Note ---
Assessment and Plan A: POD#1 s/p repeat section cHTN on superimposed preeclampsia on magnesium sulfate Morbid Obesity P: Continue routine postoperative care Complete 24 hr of magnesium sulfate Begin Labetolol 200 mg BID Subjective - Subjective Date of service: 09/14/18 Principal diagnosis: s/p repeat at 37 wks, cHTN with superimposed preeclampsia Interval history: Pt feeling well. Denies PIH symptoms. + flatus. Patient reports: appetite normal, flatus, no voiding normally (aguiar in place ), no bowel movement, no ambulating normally (SCDs in place and functioning ) [place]: in NICU Objective - Vital Signs Latest vital signs: Vital Signs Temp Pulse Resp BP Pulse Ox 09/14/18 08:59 102 H 146/62 98 09/14/18 08:54 110 H 98 09/14/18 08:49 104 H 98 09/14/18 08:44 100 H 156/81 99 09/14/18 08:39 104 H 98 09/14/18 08:34 92 H 99 09/14/18 08:29 98 H 98 09/14/18 08:28 100 H 154/96 09/14/18 08:24 115 H 98 09/14/18 08:19 107 H 98 09/14/18 08:14 96 H 159/78 98 09/14/18 08:08 120 H 97 09/14/18 08:03 97 H 98 09/14/18 07:59 89 156/90 09/14/18 07:58 95 H 98 09/14/18 07:53 95 H 98 09/14/18 07:48 96 H 98 09/14/18 07:44 96 H 152/78 09/14/18 07:43 96 H 98 09/14/18 07:38 96 H 98 09/14/18 07:33 95 H 98 09/14/18 07:29 94 H 154/84 09/14/18 07:28 95 H 98 09/14/18 07:23 101 H 98 09/14/18 07:18 93 H 98 09/14/18 07:14 93 H 149/91 09/14/18 07:13 89 98 09/14/18 07:08 100 H 98 09/14/18 07:03 97 H 98 09/14/18 06:58 91 H 111/63 98 09/14/18 06:53 109 H 99 09/14/18 06:48 99 H 98 09/14/18 06:43 89 126/79 98 09/14/18 06:38 98 H 97 09/14/18 06:33 98 H 97 09/14/18 06:29 89 133/80 09/14/18 06:28 89 98 09/14/18 06:23 88 97 09/14/18 06:18 91 H 97 09/14/18 06:13 89 117/66 98 09/14/18 06:08 97 H 98 09/14/18 06:03 93 H 98 09/14/18 05:59 89 116/65 09/14/18 05:58 94 H 99 09/14/18 05:53 97 H 98 09/14/18 05:48 101 H 97 09/14/18 05:43 87 136/75 98 09/14/18 05:38 97 H 98 09/14/18 05:33 89 98 09/14/18 05:28 89 133/75 98 09/14/18 05:23 94 H 98 09/14/18 05:18 92 H 98 09/14/18 05:13 88 137/75 98 09/14/18 05:08 88 97 09/14/18 05:03 91 H 98 09/14/18 04:59 82 137/77 09/14/18 04:58 83 98 09/14/18 04:53 88 98 09/14/18 04:48 89 97 09/14/18 04:44 91 H 147/67 09/14/18 04:43 88 97 09/14/18 04:38 89 98 09/14/18 04:33 87 97 09/14/18 04:28 93 H 104/55 98 09/14/18 04:23 86 97 09/14/18 04:18 93 H 97 09/14/18 04:13 87 105/55 97 09/14/18 04:08 90 97 09/14/18 04:03 94 H 97 09/14/18 03:58 96 H 116/59 97 09/14/18 03:53 95 H 96 09/14/18 03:48 91 H 97 09/14/18 03:43 88 114/57 97 09/14/18 03:38 88 97 09/14/18 03:33 90 97 09/14/18 03:28 88 103/59 97 09/14/18 03:23 94 H 97 09/14/18 03:18 90 97 09/14/18 03:13 93 H 102/55 97 09/14/18 03:08 89 97 09/14/18 03:03 92 H 97 09/14/18 02:58 85 97/56 97 09/14/18 02:53 84 97 09/14/18 02:48 85 97 09/14/18 02:44 83 96/52 09/14/18 02:43 84 97 09/14/18 02:38 89 98 09/14/18 02:33 90 98 09/14/18 02:29 88 152/71 09/14/18 02:28 86 99 09/14/18 02:23 86 98 09/14/18 02:18 90 98 09/14/18 02:13 86 159/81 98 09/14/18 02:08 91 H 98 09/14/18 02:03 88 98 09/14/18 01:58 85 152/79 98 09/14/18 01:53 83 97 09/14/18 01:48 92 H 98 09/14/18 01:43 82 133/68 98 09/14/18 01:38 90 98 09/14/18 01:33 87 97 09/14/18 01:29 81 129/58 09/14/18 01:28 87 98 09/14/18 01:23 85 97 09/14/18 01:18 90 97 09/14/18 01:13 89 136/68 97 09/14/18 01:08 85 97 09/14/18 01:03 88 97 09/14/18 00:59 82 148/71 09/14/18 00:58 82 98 09/14/18 00:53 90 97 09/14/18 00:48 91 H 98 09/14/18 00:46 97.6 F 19 09/14/18 00:43 89 169/87 98 09/14/18 00:38 93 H 98 09/14/18 00:33 84 98 09/14/18 00:29 88 152/76 09/14/18 00:28 88 98 09/14/18 00:23 93 H 99 09/14/18 00:18 98 H 97 09/14/18 00:13 86 156/92 98 09/14/18 00:08 87 98 09/14/18 00:03 87 98 09/13/18 23:58 85 151/87 98 09/13/18 23:53 85 98 09/13/18 23:48 97 H 98 09/13/18 23:43 89 153/81 98 09/13/18 23:38 90 98 09/13/18 23:33 94 H 98 09/13/18 23:29 79 149/89 09/13/18 23:28 88 98 09/13/18 23:23 93 H 98 09/13/18 23:18 85 98 09/13/18 23:13 81 136/66 98 09/13/18 23:08 86 97 09/13/18 23:04 82 96 09/13/18 22:59 78 139/67 97 09/13/18 22:54 79 97 09/13/18 22:49 84 97 09/13/18 22:44 74 97 09/13/18 22:43 78 153/74 09/13/18 22:39 84 97 09/13/18 22:34 86 97 09/13/18 22:29 83 158/76 97 09/13/18 22:24 89 98 09/13/18 22:19 77 97 09/13/18 22:18 76 172/102 09/13/18 22:14 86 96 09/13/18 22:13 82 170/98 09/13/18 22:09 85 97 09/13/18 22:05 76 173/102 09/13/18 22:03 79 98 09/13/18 21:58 82 98 09/13/18 21:52 75 98 09/13/18 21:48 76 98 09/13/18 21:43 80 98 09/13/18 21:40 82 187/90 09/13/18 21:38 80 98 09/13/18 21:33 81 98 09/13/18 21:28 77 98 09/13/18 21:23 76 98 09/13/18 21:18 80 99 09/13/18 21:15 18 09/13/18 21:13 71 98 09/13/18 21:08 78 99 09/13/18 21:03 79 98 09/13/18 20:58 80 97 09/13/18 20:53 84 98 09/13/18 20:48 72 98 09/13/18 20:43 77 98 09/13/18 20:40 72 147/89 09/13/18 20:38 78 97 09/13/18 20:33 77 97 09/13/18 20:28 78 97 09/13/18 20:23 79 97 09/13/18 20:18 76 97 09/13/18 20:13 76 97 09/13/18 20:08 84 96 09/13/18 20:03 75 98 09/13/18 19:58 82 97 09/13/18 19:53 76 97 09/13/18 19:48 79 97 09/13/18 19:43 82 97 09/13/18 19:40 79 159/66 09/13/18 19:38 81 96 09/13/18 19:33 80 97 09/13/18 19:30 96.6 F L 20 09/13/18 19:28 81 97 09/13/18 19:22 92 H 98 09/13/18 19:18 79 97 09/13/18 19:13 80 98 09/13/18 19:08 74 97 09/13/18 19:03 71 97 09/13/18 18:58 73 97 09/13/18 18:53 82 97 09/13/18 18:48 82 97 09/13/18 18:43 88 97 09/13/18 18:38 87 97 09/13/18 18:34 83 148/76 09/13/18 18:32 89 97 09/13/18 18:28 86 96 09/13/18 18:23 88 97 09/13/18 18:19 82 151/80 09/13/18 18:18 80 98 09/13/18 18:12 83 97 09/13/18 18:08 84 97 09/13/18 18:04 85 173/81 09/13/18 18:02 84 95 09/13/18 18:00 98.6 F 18 09/13/18 17:58 89 95 09/13/18 17:53 86 96 09/13/18 17:49 80 165/79 09/13/18 17:48 85 96 09/13/18 17:42 82 96 09/13/18 17:38 83 96 09/13/18 17:34 83 181/85 09/13/18 17:33 79 96 09/13/18 17:27 81 96 09/13/18 17:22 81 97 09/13/18 17:19 81 130/65 09/13/18 17:18 90 96 09/13/18 17:12 85 96 09/13/18 17:07 93 H 97 09/13/18 17:04 86 156/88 09/13/18 17:02 84 96 09/13/18 16:58 81 97 09/13/18 16:53 82 95 09/13/18 16:49 84 152/84 09/13/18 16:47 82 96 09/13/18 16:43 88 95 09/13/18 16:37 78 95 09/13/18 16:34 69 136/64 09/13/18 16:33 87 95 09/13/18 16:28 80 94 09/13/18 16:22 85 94 09/13/18 16:19 83 143/63 09/13/18 16:18 84 95 09/13/18 16:12 87 95 09/13/18 16:07 87 97 09/13/18 16:04 87 153/97 09/13/18 16:02 95 H 96 09/13/18 15:57 90 97 09/13/18 15:53 82 96 09/13/18 15:49 77 146/97 09/13/18 15:48 96 H 96 09/13/18 15:42 78 96 09/13/18 15:38 73 96 09/13/18 15:34 75 138/69 09/13/18 15:32 72 97 09/13/18 15:31 95 H 90 09/13/18 15:28 76 96 09/13/18 15:23 72 96 09/13/18 15:19 69 168/90 09/13/18 15:18 76 95 09/13/18 15:12 88 96 09/13/18 15:07 76 96 09/13/18 15:04 83 151/90 09/13/18 15:02 75 96 09/13/18 14:57 79 95 09/13/18 14:52 79 96 09/13/18 14:49 83 162/98 09/13/18 14:47 71 96 09/13/18 14:42 80 97 09/13/18 14:38 81 96 09/13/18 14:37 65 91 09/13/18 14:34 71 157/98 09/13/18 14:32 77 96 09/13/18 14:27 97 H 96 09/13/18 14:22 92 H 96 09/13/18 14:19 87 164/88 09/13/18 14:17 78 97 09/13/18 14:12 89 96 09/13/18 14:07 100 H 96 09/13/18 14:04 68 150/97 09/13/18 14:03 79 95 09/13/18 13:57 77 96 09/13/18 13:53 76 95 09/13/18 13:49 68 146/95 09/13/18 13:48 89 95 09/13/18 13:43 72 96 09/13/18 13:38 90 95 09/13/18 13:34 65 125/72 09/13/18 13:33 75 94 09/13/18 13:28 73 94 09/13/18 13:23 83 94 09/13/18 13:19 72 141/86 09/13/18 13:18 90 94 09/13/18 13:17 86 91 09/13/18 13:13 90 95 09/13/18 13:08 82 95 09/13/18 13:04 90 152/65 09/13/18 13:03 77 94 09/13/18 12:58 95 H 95 09/13/18 12:53 93 H 95 09/13/18 12:49 101 H 149/86 09/13/18 12:48 107 H 96 09/13/18 12:43 100 H 95 09/13/18 12:38 89 96 09/13/18 12:34 94 H 152/89 09/13/18 12:33 91 H 97 09/13/18 12:28 93 H 95 09/13/18 12:23 91 H 96 09/13/18 12:19 100 H 162/96 09/13/18 12:18 92 H 97 09/13/18 12:13 95 H 97 09/13/18 12:08 85 97 09/13/18 12:04 82 145/98 09/13/18 12:03 88 95 09/13/18 12:00 96.6 F L 20 09/13/18 11:58 89 96 09/13/18 11:53 87 96 09/13/18 11:49 91 H 138/92 09/13/18 11:48 98 H 96 09/13/18 11:43 97 H 96 09/13/18 11:38 96 H 96 09/13/18 11:33 96 H 97 09/13/18 11:31 100 H 153/62 09/13/18 11:28 92 H 96 09/13/18 11:26 96 H 160/89 09/13/18 11:23 89 94 09/13/18 11:21 81 163/86 09/13/18 11:19 93 H 92 09/13/18 11:18 98 H 95 09/13/18 11:16 85 158/86 09/13/18 11:13 94 H 97 09/13/18 11:11 94 H 155/84 09/13/18 11:08 115 H 97 09/13/18 11:06 101 H 173/81 09/13/18 11:03 74 97 09/13/18 10:58 77 96 09/13/18 10:53 99 H 96 09/13/18 10:52 95 H 161/82 09/13/18 10:48 99 H 97 09/13/18 10:43 85 96 09/13/18 10:15 90 11 L 133/71 97 09/13/18 10:00 77 18 140/75 96 09/13/18 09:45 97 H 13 138/86 97 09/13/18 09:30 71 13 141/88 97 09/13/18 09:25 76 10 L 146/89 98 09/13/18 09:20 66 15 133/100 99 09/13/18 09:15 89 12 143/94 96 09/13/18 09:10 97.6 F 80 15 140/114 98 Intake and Output 09/13/18 09/14/18 09/14/18 22:59 06:59 14:59 Intake Total 50 Output Total 200 2500 Balance -150 -2500 Intake: IV 50 ANCEF/NS 1 GM/50 ML 1 gm 50 In 50 ml @ 100 mls/hr IV Q8H [facility] Rx#:[id number] Output: Urine 200 2500 Indwelling Catheter 200 2500 Other: Total, Output Amount 50 300 Estimated Blood Loss 700 - Exam Breasts: Present: deferred Cardiovascular: Present: Regular rate Lungs: Present: Clear to auscultation Abdomen: Present: soft (obese ) Uterus: Present: fundal height below umbilicus Extremities: Present: normal (SCDs in place ) - Labs Labs: Abnormal lab results 09/13/18 09/13/18 09/14/18 Range/Units 18:26 21:08 00:19 Hct 30.1 L (30.3-42.9) % Magnesium 3.80 H 3.60 H (1.7-2.3) mg/dL 09/14/18 Range/Units 05:53 Hct (30.3-42.9) % Magnesium 3.50 H (1.7-2.3) mg/dL
[2018-09-14] MEDS: FEOSOL PO SCH (09:32)
[2018-09-14] MEDS: NORMODYNE PO SCH ×2 (09:32→21:40)
[2018-09-14] MEDS: BENADRYL PO PRN ×2 (09:32→18:10)
[2018-09-14] MEDS: IBUPROFEN PO PRN (11:48)
[2018-09-14] MEDS: MILK OF MAGNESIA PO SCH ×2 (11:49→17:58)
[2018-09-14] MEDS: PERCOCET 5/325 PO PRN (19:46)
[2018-09-15] MEDS: MILK OF MAGNESIA PO SCH ×3 (01:14→18:11)
[2018-09-15] MEDS: PERCOCET 5/325 PO PRN ×3 (06:30→18:10)
[2018-09-15] MEDS: FEOSOL PO SCH (09:37)
[2018-09-15] MEDS: NORMODYNE PO SCH ×2 (09:37→22:02)
--- NOTE | 2018-09-15 12:16 | Progress Note ---
Assessment and Plan A/P POD 2 c/sec chtn on labetolol 200 bid added procardia 30 mg po qd for elevated BPs continue present mgt Subjective - Subjective Date of service: 09/15/18 Principal diagnosis: s/p repeat at 37 wks, cHTN with superimposed preeclampsia Patient reports: appetite normal, voiding normally, pain well controlled, flatus, ambulating normally : in NICU Objective - Vital Signs Latest vital signs: Vital Signs Temp Pulse Resp BP BP Pulse Ox 09/15/18 09:37 107 H 149/87 09/15/18 07:39 98.4 F 77 18 149/86 09/15/18 06:30 18 09/15/18 00:17 98.5 F 96 H 20 144/88 97 09/14/18 21:40 86 140/84 09/14/18 20:46 16 09/14/18 19:46 18 09/14/18 16:13 98.9 F 89 20 144/90 96 Intake and Output 09/14/18 09/15/18 09/15/18 23:59 07:59 15:59 Intake Total 720 Balance 720 Intake: Oral 720 Other: Total, Intake Amount 360 # Voids Void 1 - Exam Breasts: Present: normal Cardiovascular: Present: Regular rate, Normal S1 Lungs: Present: Clear to auscultation, Normal air movement Abdomen: Present: normal appearance, soft, normal bowel sounds. Absent: distention, tenderness, guarding Vulva: both: normal Uterus: Present: normal, firm, fundal height below umbilicus. Absent: bogginess, tenderness Extremities: Present: normal Deep Tendon Reflex Grade: Normal +2 Incision: Present: normal, dry, intact - Labs Labs: Abnormal lab results 09/14/18 Range/Units 15:23 Magnesium 2.90 H (1.7-2.3) mg/dL
[2018-09-15] MEDS: PROCARDIA XL PO SCH (14:24)
[2018-09-15] MEDS: IBUPROFEN PO PRN (18:08)
[2018-09-16] MEDS: IBUPROFEN PO PRN ×2 (00:07→06:16)
[2018-09-16] MEDS: PERCOCET 5/325 PO PRN (00:07)
[2018-09-16] MEDS: MILK OF MAGNESIA PO SCH ×2 (00:26→06:15)
[2018-09-16 08:03] VITALS: BP 154/99
--- NOTE | 2018-09-16 10:11 | Progress Note ---
Assessment and Plan - Patient Problems (1) Chronic hypertension with superimposed preeclampsia Current Visit: No Status: Acute Plan to address problem: patient remains clinically stable consider discharge home today Subjective - Subjective Date of service: 09/16/18 Principal diagnosis: s/p repeat at 37 wks, cHTN with superimposed preeclampsia Interval history: Patient without complaints. Having labile blood pressures but denies preeclampsia symptoms. Tolerating regular diet and pain is controlled Patient reports: appetite normal, voiding normally, pain well controlled Objective - Vital Signs Latest vital signs: Vital Signs Temp Pulse Resp BP BP Pulse Ox 09/16/18 07:29 98.2 F 87 18 154/99 09/16/18 04:13 98.5 F 18 145/91 09/16/18 04:10 98.5 F 87 18 145/91 97 09/16/18 00:35 98.4 F 86 18 139/91 99 09/15/18 22:02 80 169/103 09/15/18 19:07 151/92 09/15/18 17:45 157/88 09/15/18 16:31 98.4 F 96 H 18 170/101 Intake and Output 09/15/18 09/16/18 09/16/18 22:59 06:59 14:59 Intake Total 600 340 360 Balance 600 340 360 Intake: Oral 360 360 Intake, Free Water 240 340 Other: Total, Intake Amount 360 360 # Voids Void 1 2 # Bowel Movements 1 - Exam Abdomen: Present: normal appearance
--- NOTE | 2018-09-16 10:15 | Discharge Summary ---
Providers - Providers Date of Admission: 09/13/18 05:08 Date of discharge: 09/16/18 Attending physician: TORY MOSES 09/13/18 10:41 Consult to Panel Gluer [CONS] Routine Reason For Exam: Primary care physician: TORY MOSES Hospitalization Reason for admission: section Delivery: Procedure: section, repeat low transverse Discharge diagnosis: other Hospital course: Patient admitted for scheduled Rc/s. complicated by superimposed preeclampsia. Patient received magnesium postop. course uneventful Condition at discharge: Good Disposition: DC-01 TO HOME OR SELFCARE - Discharge Diagnoses (1) Chronic hypertension with superimposed preeclampsia Status: Acute Plan - Discharge Medications Prescriptions: Ibuprofen [Motrin] 800 mg PO Q8HR PRN #30 tablet PRN Reason: Pain, Moderate (4-6) Ibuprofen [Motrin] 800 mg PO Q8HR PRN #30 tablet PRN Reason: Pain, Moderate (4-6) Labetalol [Normodyne TAB] 200 mg PO BID #60 tablet Labetalol [Normodyne TAB] 200 mg PO BID #60 tablet oxyCODONE /ACETAMINOPHEN [Percocet 5/325] 1 tab PO Q6HR PRN #40 tablet PRN Reason: Pain oxyCODONE /ACETAMINOPHEN [Percocet 5/325] 1 tab PO Q6HR PRN #40 tablet PRN Reason: Pain NIFEdipine XL [Procardia Xl] 60 mg PO QDAY #30 tablet - Provider Discharge Summary Activity: no sex for 6 weeks, no heavy lifting 4 weeks, no strenuous exercise Diet: routine Instructions: routine Additional instructions: [] Smoking cessation referral if applicable(refer to patient education folder for contact #) [] Refer to [facility] Booklet Call your doctor immediately for: * Fever > 100.5 * Heavy vaginal bleeding ( >1 pad per hour) * Severe persistent headache * Shortness of breath * Reddened, hot, painful area to leg or breast * Drainage or odor from incision. * Keep incision clean and dry at all times and follow doctor's instructions regarding bathing/showering schedule followup in 1-2 weeks at [facility] - Follow up plan Follow up: TORY MOSES MD [Primary Care Provider] - 7 Days
[2018-09-16] MEDS: FEOSOL PO SCH (10:49)
[2018-09-16] MEDS: PROCARDIA XL PO SCH (10:49)
[2018-09-16] MEDS: NORMODYNE PO SCH (10:50)
== END 2018-09-16 12:10 | disposition home or self-care (01) | DRG 765 ==
LOC: APU 05:08 → LD 19:59 → OB 09-14 12:38
PROVIDERS: ADMIT Obstetrics & Gynecology; ATTEND Obstetrics & Gynecology
PROC: 10D00Z1 Extraction of Products of Conception, Low, Open Approach (ICD-10-PCS; principal; 2018-09-13)
PROC: 3E0234Z Introduction of Serum, Toxoid and Vaccine into Muscle, Percutaneous Approach (ICD-10-PCS; 2018-09-14)
DX: O34.211 Maternal care for low transverse scar from previous cesarean delivery (principal); O11.4 Pre-existing hypertension with pre-eclampsia, complicating childbirth; O98.52 Other viral diseases complicating childbirth; B00.9 Herpesviral infection, unspecified; J45.909 Unspecified asthma, uncomplicated; O99.52 Diseases of the respiratory system complicating childbirth; E66.01 Morbid (severe) obesity due to excess calories; Z37.0 Single live birth; Z3A.37 37 weeks gestation of pregnancy; Z23 Encounter for immunization; Z79.899 Other long term (current) drug therapy
CPT/HCPCS: 36415; 83735; 85014; 85018; 85025; 86850; 86900; 86901; 88307; G0378; J0360; J0690; J1170; J1885; J2274; J2300; J2370; J2405; J2590; J3475; J7120; J7121

== ENCOUNTER 2019-07-03 09:29 | Inpatient (IN) | payer SELFPAY ==
[2019-07-03 10:31] LABS: Bilirubin,Urine NEG (Negative); Blood,Urine SM (Negative); Color,Urine Straw (Yellow); Mucus,Urine FEW /HPF; Protein,Urine <15 mg/dL mg/dL (Negative); Urobilinogen,Urine < 2.0 mg/dL (<2.0)
[2019-07-03] MEDS ORDERED: MAGNESIUM SULFATE 2 GM/50 ML BAG IV ONE (10:33)
[2019-07-03 10:47] LABS: Basophils % (Auto) 0.6 % (0.0-1.8); Eosinophils # (Auto) 0.1 K/mm3 (0.0-0.4); Hemoglobin 11.7 gm/dl (10.1-14.3); Lymphocytes # (Auto) 1.9 K/mm3 (1.2-5.4); Lymphocytes % (Auto) 28.8 % (13.4-35.0); Mean Corpuscular HGB Conc 34 % (30-34); Mean Corpuscular Volume 87 fl (79-97); Monocytes # (Auto) 0.4 K/mm3 (0.0-0.8); Monocytes % (Auto) 6.1 % (0.0-7.3); Platelet Count 269 K/mm3 (140-440); Red Blood Count 3.94 M/mm3 (3.65-5.03); Red Cell Distribution Width 13.3 % (13.2-15.2)
--- NOTE | 2019-07-03 10:48 | XRay Report ---
CHEST 1 VIEW 07/03/2019 10:18 AM INDICATION / CLINICAL INFORMATION: chest pain. COMPARISON: None available. FINDINGS: SUPPORT DEVICES: None. HEART / MEDIASTINUM: No significant abnormality. LUNGS / PLEURA: No significant pulmonary or pleural abnormality. No pneumothorax. ADDITIONAL FINDINGS: No significant additional findings. IMPRESSION: 1. No acute findings. Signer Name: Casey Ziegler MD Signed: 07/03/2019 10:44 AM Workstation Name: [id number]
--- NOTE | 2019-07-03 10:49 | Emergency Department Report ---
<BRYAN IRELAND - Last Filed: 07/03/19 11:39> ED Chest Pain HPI - General Chief Complaint: Chest Pain Stated Complaint: CHEST/LEG PAIN Time Seen by Provider: 07/03/19 10:11 - Related Data Previous Rx's Medication Instructions Recorded Last Taken Type Vit Calc,Iron,Folic 1 each PO DAILY #30 tablet 09/07/15 1 Day Ago Rx [ Vitamins] ~07/03/17 labetaloL [Labetalol 200mg TAB] 200 mg PO BID #60 tablet 05/18/17 07/04/17 06:30 Rx Ibuprofen [Motrin] 800 mg PO Q8HR PRN #60 tablet 07/05/17 Unknown Rx Oxycodone HCl/Acetaminophen 1 each PO Q6HR PRN #45 tablet 07/05/17 Unknown Rx [Percocet 7.5/325 mg] NIFEdipine XL [Procardia Xl] 90 mg PO QDAY #30 tablet 07/08/17 Unknown Rx labetaloL [Normodyne] 400 mg PO BID #120 tablet 07/08/17 Unknown Rx labetaloL [Labetalol 100mg TAB] 100 mg PO BID #60 tablet 04/15/18 Unknown Rx Ibuprofen [Motrin] 800 mg PO Q8HR PRN #30 tablet 09/13/18 Unknown Rx oxyCODONE /ACETAMINOPHEN [Percocet 1 tab PO Q6HR PRN #40 tablet 09/13/18 Unknown Rx 5/325] Ibuprofen [Motrin] 800 mg PO Q8HR PRN #30 tablet 09/14/18 Unknown Rx labetaloL [Labetalol 200mg TAB] 200 mg PO BID #60 tablet 09/14/18 Unknown Rx oxyCODONE /ACETAMINOPHEN [Percocet 1 tab PO Q6HR PRN #40 tablet 09/14/18 Unknown Rx 5/325] NIFEdipine XL [Procardia Xl] 60 mg PO QDAY #30 tablet 09/16/18 Unknown Rx labetaloL [Labetalol 200mg TAB] 200 mg PO BID #60 tablet 09/16/18 Unknown Rx Allergies Allergy/AdvReac Type Severity Reaction Status Date / Time No Known Allergies Allergy Verified 04/10/17 22:14 ED Past Medical Hx - Medications Home Medications: Home Medications Medication Instructions Recorded Confirmed Last Taken Type Vit Calc,Iron,Folic 1 each PO DAILY #30 tablet 09/07/15 07/04/17 1 Day Ago Rx [ Vitamins] ~07/03/17 labetaloL [Labetalol 200mg TAB] 200 mg PO BID #60 tablet 05/18/17 07/04/17 07/04/17 06:30 Rx Ibuprofen [Motrin] 800 mg PO Q8HR PRN #60 tablet 07/05/17 Unknown Rx Oxycodone HCl/Acetaminophen 1 each PO Q6HR PRN #45 tablet 07/05/17 Unknown Rx [Percocet 7.5/325 mg] NIFEdipine XL [Procardia Xl] 90 mg PO QDAY #30 tablet 07/08/17 Unknown Rx labetaloL [Normodyne] 400 mg PO BID #120 tablet 07/08/17 Unknown Rx labetaloL [Labetalol 100mg TAB] 100 mg PO BID #60 tablet 04/15/18 Unknown Rx Ibuprofen [Motrin] 800 mg PO Q8HR PRN #30 tablet 09/13/18 Unknown Rx oxyCODONE /ACETAMINOPHEN [Percocet 1 tab PO Q6HR PRN #40 tablet 09/13/18 Unknown Rx 5/325] Ibuprofen [Motrin] 800 mg PO Q8HR PRN #30 tablet 09/14/18 Unknown Rx labetaloL [Labetalol 200mg TAB] 200 mg PO BID #60 tablet 09/14/18 Unknown Rx oxyCODONE /ACETAMINOPHEN [Percocet 1 tab PO Q6HR PRN #40 tablet 09/14/18 Unknown Rx 5/325] NIFEdipine XL [Procardia Xl] 60 mg PO QDAY #30 tablet 09/16/18 Unknown Rx labetaloL [Labetalol 200mg TAB] 200 mg PO BID #60 tablet 09/16/18 Unknown Rx ED Course - Reevaluation(s) Reevaluation #1: His blood pressure is improved. I have ordered a CT angiogram which appears to be low pretest probability. The patient has no chest pain now. She's had no cough and no breathing difficulty. I've also ordered an ultrasound. I spoke with Dr. Saleh. She was kind to accept the patient for transfer to L and D triage. She is aware of the findings. I've also ordered a repeat BMP as it seems like the chloride level is spurious. 07/03/19 11:40 ED Medical Decision Making - Lab Data Result diagrams: 07/03/19 10:30 07/03/19 10:37 Laboratory Results - last 24 hr 07/03/19 07/03/19 07/03/19 10:30 10:30 10:30 WBC 6.6 RBC 3.94 Hgb 11.7 Hct 34.0 MCV 87 MCH 30 MCHC 34 RDW 13.3 Plt Count 269 Lymph % (Auto) 28.8 Harmon % (Auto) 6.1 Eos % (Auto) 1.0 Baso % (Auto) 0.6 Lymph # 1.9 Harmon # 0.4 Eos # 0.1 Baso # 0.0 Seg Neutrophils % 63.5 Seg Neutrophils # 4.2 PT 13.3 INR 1.00 APTT 30.3 D-Dimer 893.99 H Chloride Carbon Dioxide Anion Gap BUN Creatinine Estimated GFR BUN/Creatinine Ratio Glucose Calcium Magnesium Total Bilirubin AST Total Creatine Kinase CK-MB (CK-2) CK-MB (CK-2) Rel Index Troponin T < 0.010 NT-Pro-B Natriuret Pep Total Protein Urine Color Urine Turbidity Urine pH Ur Specific [place] Urine Protein Urine Glucose (UA) Urine Ketones Urine Blood Urine Nitrite Urine Bilirubin Urine Urobilinogen Ur Leukocyte Esterase Urine WBC (Auto) Urine RBC (Auto) U Epithel Cells (Auto) Urine Mucus 07/03/19 07/03/19 10:37 Unknown WBC RBC Hgb Hct MCV MCH MCHC RDW Plt Count Lymph % (Auto) Harmon % (Auto) Eos % (Auto) Baso % (Auto) Lymph # Harmon # Eos # Baso # Seg Neutrophils % Seg Neutrophils # PT INR APTT D-Dimer Chloride 63.1 L Carbon Dioxide 19 L Anion Gap 8 BUN 5 L Creatinine 0.5 L Estimated GFR > 60 BUN/Creatinine Ratio 10 Glucose 82 Calcium 8.7 Magnesium 1.70 Total Bilirubin 0.20 AST 9 Total Creatine Kinase 47 CK-MB (CK-2) < 1.0 CK-MB (CK-2) Rel Index 2.1 Troponin T NT-Pro-B Natriuret Pep 43.87 Total Protein 6.5 Urine Color Straw Urine Turbidity Clear Urine pH 8.0 H Ur Specific [place] 1.006 Urine Protein <15 mg/dl Urine Glucose (UA) Neg Urine Ketones Neg Urine Blood Sm Urine Nitrite Neg Urine Bilirubin Neg Urine Urobilinogen < 2.0 Ur Leukocyte Esterase Tr Urine WBC (Auto) 3.0 Urine RBC (Auto) 1.0 U Epithel Cells (Auto) 1.0 Urine Mucus Few ED Disposition Clinical Impression: Preeclampsia Qualifiers: Trimester: second trimester Qualified Code(s): O14.92 - Unspecified pre- eclampsia, second trimester Chest pain Qualifiers: Chest pain type: unspecified Qualified Code(s): R07.9 - Chest pain, unspecified Disposition: [id number] OP ADMIT IP TO THIS HOSP Condition: Stable Instructions: Hypertension (ED), Chest Pain (ED) <ELENITA WOODSON - Last Filed: 07/03/19 11:53> ED Chest Pain HPI - General Source: patient Mode of arrival: Ambulatory Limitations: No Limitations - History of Present Illness Initial Comments: 28-year-old -English female patient who is visiting 5 and 6 months with history of hypertension and preeclampsia presents with complaints of left-sided chest pain 4 days. She describes the pain and rates the pain as a 7/10 in severity. She states the pain is constant and worsens with ambulation. She denies any chest wall injuries or heavy lifting, history of DVT/PE, leg swelling, or recent long travel. Patient admits to intermittent achiness bilaterally in her lower legs that has been ongoing for weeks. She denies any family history of heart disease. She admits to intermittent shortness of breath, however states she believes this is due to her asthma. She denies any shortness of breath with ambulation, syncope, dizziness, or cough. Patient reports she has not had any care to this point. She denies any vaginal bleeding, dysuria, or abdominal pain. MD Complaint: chest pain -: Sudden Onset: during rest, during exertion Pain Location: left chest Severity scale (0 -10): 7 Quality: sharp Improves With: nothing Worsens With: exertion re: denies: nausea, vomting, diaphoresis Other Symptoms: denies: cough, fever, syncope Heart Score - HEART Score History: Slightly suspicious EKG: Normal Age: < 45 Risk factors: 1-2 risk factors Troponin: < normal limit HEART Score: 1 ED Review of Systems ROS: Stated complaint: CHEST/LEG PAIN Other details as noted in HPI Constitutional: denies: chills, diaphoresis, fever, malaise, weakness Eyes: denies: vision change Respiratory: shortness of breath, SOB at rest. denies: cough, SOB with exertion Cardiovascular: chest pain. denies: palpitations, dyspnea on exertion, edema, syncope Endocrine: no symptoms reported Gastrointestinal: denies: abdominal pain, nausea, vomiting, constipation Genitourinary: denies: urgency, frequency, hematuria, discharge Musculoskeletal: denies: back pain Skin: denies: rash, lesions Neurological: denies: headache, weakness, abnormal gait Hematological/Lymphatic: denies: easy bleeding, easy bruising ED Past Medical Hx - Past Medical History Hx Hypertension: Yes Hx Heart Attack/AMI: No Hx Congestive Heart Failure: No Hx Diabetes: No Hx Deep Vein Thrombosis: No Hx Liver Disease: No Hx Renal Disease: No Hx Sickle Cell Disease: No Hx Seizures: No Hx Asthma: Yes Hx COPD: No Hx HIV: No Additional medical history: bronchitis, Vaginal delivery x 6 - Surgical History Hx Pacemaker: No Hx Internal Defibrillator: No Additional Surgical History: x 2 - Social History Smoking Status: Former Smoker ED Physical Exam - General Limitations: No Limitations General appearance: alert, in no apparent distress - Head Head exam: Present: atraumatic, normocephalic - Eye Eye exam: Present: normal appearance. Absent: scleral icterus - ENT ENT exam: Present: mucous membranes moist - Neck Neck exam: Present: normal inspection, full ROM - Respiratory Respiratory exam: Present: normal lung sounds bilaterally. Absent: respiratory distress - Cardiovascular Cardiovascular Exam: Present: regular rate, normal rhythm. Absent: systolic murmur, diastolic murmur, rubs, gallop - GI/Abdominal GI/Abdominal exam: Present: soft, normal bowel sounds. Absent: tenderness, gua rding, rebound, rigid - Extremities Exam Extremities exam: Present: normal inspection, other (normal pedal pulses noted bilaterally). Absent: pedal edema, joint swelling, calf tenderness (no swelling noted) - Back Exam Back exam: Present: normal inspection - Neurological Exam Neurological exam: Present: alert, oriented X3 - Psychiatric Psychiatric exam: Present: normal affect, normal mood - Skin Skin exam: Present: warm, dry, intact, normal color. Absent: rash ED Course Vital Signs 07/03/19 07/03/19 07/03/19 09:33 10:42 10:45 Temperature 98.1 F Pulse Rate 87 67 Respiratory 16 11 L Rate Blood Pressure 204/122 168/100 O2 Sat by Pulse 100 98 99 Oximetry 07/03/19 07/03/1920 11:00 11:12 11:16 Temperature 98.4 F Pulse Rate 61 66 66 Respiratory 11 L 13 Rate Blood Pressure 179/101 179/101 161/97 O2 Sat by Pulse 100 99 Oximetry 07/03/19 11:30 Temperature Pulse Rate 64 Respiratory 11 L Rate Blood Pressure 152/90 O2 Sat by Pulse 99 Oximetry ED Medical Decision Making - Lab Data Result diagrams: 07/03/19 10:30 07/03/19 10:37 Lab Results 07/03/19 07/03/19 07/03/19 Range/Units 10:30 10:30 10:30 WBC 6.6 (4.5-11.0) K/mm3 RBC 3.94 (3.65-5.03) M/mm3 Hgb 11.7 (10.1-14.3) gm/dl Hct 34.0 (30.3-42.9) % MCV 87 (79-97) fl MCH 30 (28-32) pg MCHC 34 (30-34) % RDW 13.3 (13.2-15.2) % Plt Count 269 (140-440) K/mm3 Lymph % (Auto) 28.8 (13.4-35.0) % Harmon % (Auto) 6.1 (0.0-7.3) % Eos % (Auto) 1.0 (0.0-4.3) % Baso % (Auto) 0.6 (0.0-1.8) % Lymph # 1.9 (1.2-5.4) K/mm3 Harmon # 0.4 (0.0-0.8) K/mm3 Eos # 0.1 (0.0-0.4) K/mm3 Baso # 0.0 (0.0-0.1) K/mm3 Seg Neutrophils % 63.5 (40.0-70.0) % Seg Neutrophils # 4.2 (1.8-7.7) K/mm3 PT 13.3 (12.2-14.9) Sec. INR 1.00 (0.87-1.13) APTT 30.3 (24.2-36.6) Sec. D-Dimer 893.99 H (0-234) ng/mlDDU Sodium (137-145) mmol/L Potassium (3.6-5.0) mmol/L Chloride (98-107) mmol/L Carbon Dioxide (22-30) mmol/L Anion Gap mmol/L BUN (7-17) mg/dL Creatinine (0.7-1.2) mg/dL Estimated GFR ml/min BUN/Creatinine Ratio % Glucose (65-100) mg/dL Calcium (8.4-10.2) mg/dL Magnesium (1.7-2.3) mg/dL Total Bilirubin (0.1-1.2) mg/dL Direct Bilirubin (0-0.2) mg/dL Indirect Bilirubin mg/dL AST (5-40) units/L ALT (7-56) units/L Alkaline Phosphatase (35-129) units/L Total Creatine Kinase (30-135) units/L CK-MB (CK-2) (0.0-4.0) ng/mL CK-MB (CK-2) Rel Index (0-4) Troponin T < 0.010 (0.00-0.029) ng/mL NT-Pro-B Natriuret Pep (0-450) pg/mL Total Protein (6.3-8.2) g/dL Albumin (3.9-5) g/dL Albumin/Globulin Ratio % Urine Color (Yellow) Urine Turbidity (Clear) Urine pH (5.0-7.0) Ur Specific [place] (1.003-1.030) Urine Protein (Negative) mg/dL Urine Glucose (UA) (Negative) mg/dL Urine Ketones (Negative) mg/dL Urine Blood (Negative) Urine Nitrite (Negative) Urine Bilirubin (Negative) Urine Urobilinogen (<2.0) mg/dL Ur Leukocyte Esterase (Negative) Urine WBC (Auto) (0.0-6.0) /HPF Urine RBC (Auto) (0.0-6.0) /HPF U Epithel Cells (Auto) (0-13.0) /HPF Urine Mucus /HPF 07/03/19 07/03/19 Range/Units 10:37 Unknown WBC (4.5-11.0) K/mm3 RBC (3.65-5.03) M/mm3 Hgb (10.1-14.3) gm/dl Hct (30.3-42.9) % MCV (79-97) fl MCH (28-32) pg MCHC (30-34) % RDW (13.2-15.2) % Plt Count (140-440) K/mm3 Lymph % (Auto) (13.4-35.0) % Harmon % (Auto) (0.0-7.3) % Eos % (Auto) (0.0-4.3) % Baso % (Auto) (0.0-1.8) % Lymph # (1.2-5.4) K/mm3 Harmon # (0.0-0.8) K/mm3 Eos # (0.0-0.4) K/mm3 Baso # (0.0-0.1) K/mm3 Seg Neutrophils % (40.0-70.0) % Seg Neutrophils # (1.8-7.7) K/mm3 PT (12.2-14.9) Sec. INR (0.87-1.13) APTT (24.2-36.6) Sec. D-Dimer (0-234) ng/mlDDU Sodium 138 (137-145) mmol/L Potassium 3.9 (3.6-5.0) mmol/L Chloride 63.1 L (98-107) mmol/L Carbon Dioxide 19 L (22-30) mmol/L Anion Gap 8 mmol/L BUN 5 L (7-17) mg/dL Creatinine 0.5 L (0.7-1.2) mg/dL Estimated GFR > 60 ml/min BUN/Creatinine Ratio 10 % Glucose 82 (65-100) mg/dL Calcium 8.7 (8.4-10.2) mg/dL Magnesium 1.70 (1.7-2.3) mg/dL Total Bilirubin 0.20 (0.1-1.2) mg/dL Direct Bilirubin < 0.2 (0-0.2) mg/dL Indirect Bilirubin 0.0 mg/dL AST 9 (5-40) units/L ALT < 5 L (7-56) units/L Alkaline Phosphatase < 5 L (35-129) units/L Total Creatine Kinase 47 (30-135) units/L CK-MB (CK-2) < 1.0 (0.0-4.0) ng/mL CK-MB (CK-2) Rel Index 2.1 (0-4) Troponin T (0.00-0.029) ng/mL NT-Pro-B Natriuret Pep 43.87 (0-450) pg/mL Total Protein 6.5 (6.3-8.2) g/dL Albumin < 0.2 L (3.9-5) g/dL Albumin/Globulin Ratio 0.0 % Urine Color Straw (Yellow) Urine Turbidity Clear (Clear) Urine pH 8.0 H (5.0-7.0) Ur Specific [place] 1.006 (1.003-1.030) Urine Protein <15 mg/dl (Negative) mg/dL Urine Glucose (UA) Neg (Negative) mg/dL Urine Ketones Neg (Negative) mg/dL Urine Blood Sm (Negative) Urine Nitrite Neg (Negative) Urine Bilirubin Neg (Negative) Urine Urobilinogen < 2.0 (<2.0) mg/dL Ur Leukocyte Esterase Tr (Negative) Urine WBC (Auto) 3.0 (0.0-6.0) /HPF Urine RBC (Auto) 1.0 (0.0-6.0) /HPF U Epithel Cells (Auto) 1.0 (0-13.0) /HPF Urine Mucus Few /HPF - EKG Data Rate: normal - Radiology Data Radiology results: report reviewed CHEST 1 VIEW 07/03/2019 10:18 AM INDICATION / CLINICAL INFORMATION: chest pain. COMPARISON: None available. FINDINGS: SUPPORT DEVICES: None. HEART / MEDIASTINUM: No significant abnormality. LUNGS / PLEURA: No significant pulmonary or pleural abnormality. No pneumothorax. ADDITIONAL FINDINGS: No significant additional findings. IMPRESSION: - Medical Decision Making 28-year-old -English female patient who is visiting 5 and 6 months with history of hypertension and preeclampsia presents with complaints of left-sided chest pain 4 days. She has not had any care to this point. Patient admits to being noncompliant with blood pressure medication and was previously on labetalol. Chest x-ray is negative for acute findings. Troponin is normal. CBC is normal. CMP shows low chloride, otherwise is normal. D-dimer is elevated at 893. CTA chest ordered. UA is negative for proteinuria. Patient given IV labetalol 5 mg-improved from 204/122 to 152/90. Patient is nontoxic appearing and stable. Patient to be admitted to labor and delivery for preeclampsia. Critical care attestation.: If time is entered above; I have spent that time in minutes in the direct care of this critically ill patient, excluding procedure time. ED Disposition Is pt being admited?: Yes
[2019-07-03 11:00] LABS: Partial Thromboplastin Time 30.3 Sec. (24.2-36.6)
[2019-07-03 11:17] LABS: Creatine Kinase MB < 1.0 ng/mL (0.0-4.0)
[2019-07-03 11:20] LABS: BUN/Creatinine Ratio 10; Blood Urea Nitrogen 5 mg/dL (7-17); Calcium 8.7 mg/dL (8.4-10.2); Hemolysis Index 15
[2019-07-03 11:22] LABS: Alanine Aminotransferase < 5 units/L (7-56); Albumin < 0.2 g/dL (3.9-5); Bilirubin,Direct < 0.2 mg/dL (0-0.2)
[2019-07-03 12:33] LABS: BUN/Creatinine Ratio 10; Blood Urea Nitrogen 5 mg/dL (7-17); Calcium 8.6 mg/dL (8.4-10.2); Hemolysis Index 136
--- NOTE | 2019-07-03 12:42 | Ultrasound Report ---
Limited OB Ultrasound HISTORY: 5-6 month preg no care FHT 160. TECHNIQUE: Grayscale and color Doppler imaging performed. COMPARISON: OB ultrasound from 09/05/2018 FINDINGS: There is a single viable intrauterine gestation which is cephalic in presentation with GERARDO of 16 cm. Placenta is positioned anteriorly. Heart rate is 140 bpm. Cervical length is 2.8 cm. Overal l EGA by ultrasound is 25 weeks and 5 days compared to a clinical age of 21 weeks and 5 days. Estimat ed weight is 826 g. Limited anatomic survey is unremarkable. IMPRESSION: Single viable intrauterine gestation as described above. There is a discrepancy of approx imately 4 weeks between the ultrasound and clinical gestational age and correlation is recommended. Signer Name: Les Amaral MD Signed: 07/03/2019 12:38 PM Workstation Name: [id number]
--- NOTE | 2019-07-03 13:57 | Cat Scan Report ---
CTA chest with contrast INDICATION : CP elevated dimer. TECHNIQUE: Axial imaging performed through the chest, with contrast bolus timing set to maximize opa cification of the pulmonary arteries. 3-plane MIP reformatted images were obtained. All CT scans at this location are performed using CT dose reduction for ALARA by means of automated exposure control. 100 mL of intravenous contrast administered. COMPARISON: None FINDINGS: Bolus: Contrast bolus timing is inadequate without opacification of the pulmonary arterial vasculatu re. Instead, the aorta is well-opacified and appears normal.. PTE: Inadequate quality for assessment. Mediastinum: Heart and great vessels appear normal. No pathologic mediastinal adenopathy. Lungs: Lungs are clear. Upper abdomen: Limited imaging of the upper abdomen shows nothing acute. Bones: Degenerative changes in the spine with nothing acute. IMPRESSION: Inadequate quality for evaluation. Clear lungs. Signer Name: Les Amaral MD Signed: 07/03/2019 1:52 PM Workstation Name: [id number]
[2019-07-03] MEDS ORDERED: hydrALAZINE 20 MG/1 ML INJ IV PRN (15:23)
[2019-07-03] MEDS ORDERED: LACTATED RINGERS 1,000 ML ONE (15:54)
[2019-07-03] MEDS: BETAMET ACET/BETAMET NA PH 6 MG/ML INJ 5 ML MDV IM SCH (15:55)
--- NOTE | 2019-07-03 17:41 | History and Physical Report ---
History of Present Illness Date of examination: 07/03/19 Date of admission: 07/03/19 11:48 Chief complaint: chest pain History of present illness: 28y/o @ 25+5 weeks presents to the ED with chest pain. The patient was unaware she was . States she had not paid attention to her menses. Concluded she was once she felt movement. She denies any leakage of fluid or vaginal bleeding. The patient has not had care during this . Previous pregnancies complicated by chronic hypertension, preeclampsia, delivery. OB ultrasound established gestational age of 25+5 weeks with EDC of 10/11/2019. Past History Past Medical History: hypertension Past Surgical History: section Social history: single - Obstetrical History : 10 Para: 8 Hx # Term Pregnancies: 5 Number of Pregnancies: 3 Spontaneous Abortions: 0 Induced : 1 Number of Living Children: 8 Medications and Allergies Allergies Allergy/AdvReac Type Severity Reaction Status Date / Time No Known Allergies Allergy Verified 04/10/17 22:14 Home Medications Medication Instructions Recorded Confirmed Last Taken Type Vit Calc,Iron,Folic 1 each PO DAILY #30 tablet 09/07/15 07/04/17 1 Day Ago Rx [ Vitamins] ~07/03/17 labetaloL [Labetalol 200mg TAB] 200 mg PO BID #60 tablet 05/18/17 07/04/17 07/04/17 06:30 Rx Ibuprofen [Motrin] 800 mg PO Q8HR PRN #60 tablet 07/05/17 Unknown Rx Oxycodone HCl/Acetaminophen 1 each PO Q6HR PRN #45 tablet 07/05/17 Unknown Rx [Percocet 7.5/325 mg] NIFEdipine XL [Procardia Xl] 90 mg PO QDAY #30 tablet 07/08/17 Unknown Rx labetaloL [Normodyne] 400 mg PO BID #120 tablet 07/08/17 Unknown Rx labetaloL [Labetalol 100mg TAB] 100 mg PO BID #60 tablet 04/15/18 Unknown Rx Ibuprofen [Motrin] 800 mg PO Q8HR PRN #30 tablet 09/13/18 Unknown Rx oxyCODONE /ACETAMINOPHEN [Percocet 1 tab PO Q6HR PRN #40 tablet 09/13/18 Unknown Rx 5/325] Ibuprofen [Motrin] 800 mg PO Q8HR PRN #30 tablet 09/14/18 Unknown Rx labetaloL [Labetalol 200mg TAB] 200 mg PO BID #60 tablet 09/14/18 Unknown Rx oxyCODONE /ACETAMINOPHEN [Percocet 1 tab PO Q6HR PRN #40 tablet 09/14/18 Unknown Rx 5/325] NIFEdipine XL [Procardia Xl] 60 mg PO QDAY #30 tablet 09/16/18 Unknown Rx labetaloL [Labetalol 200mg TAB] 200 mg PO BID #60 tablet 09/16/18 Unknown Rx Active Meds: Active Medications Betamethasone Acet/Betameth SodPhos (Celestone Soluspan) 12 mg IM Q24HR KADI Stop: 07/04/19 17:00 Last Admin: 07/03/19 15:55 Dose: 12 mg Documented by: Hydralazine HCl (Apresoline) 5 mg IV Q30MIN PRN PRN Reason: Blood Pressure Review of Systems Cardiovascular: chest pain - Vital Signs Vital signs: Vital Signs Temp Pulse Resp BP Pulse Ox 98.1 F 87 16 204/122 100 07/03/19 09:33 07/03/19 09:33 07/03/19 09:33 07/03/19 09:33 07/03/19 09:33 Temp Pulse Resp BP Pulse Ox 98.9 F 97 H 18 174/75 100 07/03/19 15:32 07/03/19 17:04 07/03/19 15:32 07/03/19 17:04 07/03/19 17:03 - Physical Exam Breasts: Positive: deferred Cardiovascular: Regular rate Results Result Diagrams: 07/03/19 10:30 07/03/19 11:42 Abnormal lab results 07/03/19 07/03/19 07/03/19 Range/Units 10:30 10:37 11:42 D-Dimer 893.99 H (0-234) ng/mlDDU Chloride 63.1 L (98-107) mmol/L Carbon Dioxide 19 L 17 L (22-30) mmol/L BUN 5 L 5 L (7-17) mg/dL Creatinine 0.5 L 0.5 L (0.7-1.2) mg/dL ALT < 5 L (7-56) units/L Alkaline Phosphatase < 5 L (35-129) units/L Albumin < 0.2 L (3.9-5) g/dL Urine pH (5.0-7.0) 07/03/ Range/Units Unknown D-Dimer (0-234) ng/mlDDU Chloride (98-107) mmol/L Carbon Dioxide (22-30) mmol/L BUN (7-17) mg/dL Creatinine (0.7-1.2) mg/dL ALT (7-56) units/L Alkaline Phosphatase (35-129) units/L Albumin (3.9-5) g/dL Urine pH 8.0 H (5.0-7.0) All other labs normal. Assessment and Plan - Patient Problems (1) No care in current Current Visit: Yes Status: Acute Plan to address problem: patient admitted for preeclampsia evaluation will initiate steroids and hypertensive meds collect 24hr urine. (2) Chest pain Current Visit: Yes Status: Acute (3) Hypertension affecting in second trimester Onset Date: 09/06/15 Current Visit: No Status: Acute
[2019-07-03] MEDS ORDERED: DOCUSATE SODIUM 100 MG CAP PO PRN (17:44)
[2019-07-03] MEDS ORDERED: ACETAMINOPHEN 325 MG TAB PO PRN (17:44)
[2019-07-03] MEDS ORDERED: LACTATED RINGERS 1,000 ML IV SCH (18:00)
[2019-07-04] MEDS: PRENATAL VIT27-FE FUMARATE-FOLIC ACID VIT TAB PO SCH (10:06)
--- NOTE | 2019-07-04 14:01 | Progress Note ---
Assessment and Plan IUP [address] neg awaiting MFM consult pending 24hrs urien collection continue antihypertensive meds will await cardiology consult -placed today Subjective - Subjective Date of service: 07/04/19 Principal diagnosis: chest pain Patient reports: movement normal, no new complaints, no loss of fluid, no vaginal bleeding, no contractions Objective - Vital Signs Vital Signs: Vital Signs - 12hr 07/04/19 07/04/19 07/04/19 02:03 02:08 02:13 Temperature Pulse Rate 86 84 104 H Respiratory Rate Blood Pressure O2 Sat by Pulse 99 99 99 Oximetry 07/04/19 07/04/19 07/04/19 02:18 02:23 02:28 Temperature Pulse Rate 81 84 75 Respiratory Rate Blood Pressure O2 Sat by Pulse 98 98 98 Oximetry 07/04/19 07/04/19 07/04/19 02:33 02:34 02:38 Temperature Pulse Rate 78 75 73 Respiratory Rate Blood Pressure 134/65 O2 Sat by Pulse 99 99 Oximetry 07/04/19 07/04/19 07/04/19 02:43 02:48 02:53 Temperature Pulse Rate 73 72 69 Respiratory Rate Blood Pressure O2 Sat by Pulse 98 99 98 Oximetry 07/04/19 07/04/19 07/04/19 02:58 03:03 03:08 Temperature Pulse Rate 71 74 72 Respiratory Rate Blood Pressure O2 Sat by Pulse 98 98 98 Oximetry 07/04/19 07/04/19 07/04/19 03:13 03:18 03:23 Temperature Pulse Rate 75 81 78 Respiratory Rate Blood Pressure O2 Sat by Pulse 97 97 99 Oximetry 07/04/19 07/04/19 07/04/19 03:28 03:33 03:34 Temperature Pulse Rate 72 80 80 Respiratory Rate Blood Pressure 146/80 O2 Sat by Pulse 99 98 Oximetry 07/04/19 07/04/19 07/04/19 03:38 03:43 03:48 Temperature Pulse Rate 74 76 78 Respiratory Rate Blood Pressure O2 Sat by Pulse 98 97 97 Oximetry 07/04/19 07/04/19 07/04/19 03:53 03:58 04:03 Temperature Pulse Rate 78 85 84 Respiratory Rate Blood Pressure O2 Sat by Pulse 97 97 97 Oximetry 07/04/19 07/04/19 07/04/19 04:08 04:13 04:18 Temperature Pulse Rate 84 81 79 Respiratory Rate Blood Pressure O2 Sat by Pulse 97 97 98 Oximetry 07/04/19 07/04/19 07/04/19 04:23 04:28 04:33 Temperature Pulse Rate 76 70 70 Respiratory Rate Blood Pressure O2 Sat by Pulse 98 97 96 Oximetry 07/04/19 07/04/19 07/04/19 04:34 04:38 04:43 Temperature Pulse Rate 73 79 73 Respiratory Rate Blood Pressure 133/71 O2 Sat by Pulse 99 98 Oximetry 07/04/19 07/04/19 07/04/19 04:48 04:53 04:58 Temperature Pulse Rate 75 81 81 Respiratory Rate Blood Pressure O2 Sat by Pulse 98 98 98 Oximetry 07/04/19 07/04/19 07/04/19 05:03 05:08 05:13 Temperature Pulse Rate 80 84 70 Respiratory Rate Blood Pressure O2 Sat by Pulse 98 98 98 Oximetry 07/04/19 07/04/19 07/04/19 05:18 05:23 05:28 Temperature Pulse Rate 82 75 77 Respiratory Rate Blood Pressure O2 Sat by Pulse 97 98 97 Oximetry 07/04/19 07/04/19 07/04/19 05:33 05:35 05:38 Temperature Pulse Rate 78 75 75 Respiratory Rate Blood Pressure 157/74 O2 Sat by Pulse 96 98 Oximetry 07/04/19 07/04/19 07/04/19 05:43 05:48 05:53 Temperature Pulse Rate 78 70 81 Respiratory Rate Blood Pressure O2 Sat by Pulse 98 98 97 Oximetry 07/04/19 07/04/19 07/04/19 05:58 06:03 06:08 Temperature Pulse Rate 75 84 74 Respiratory Rate Blood Pressure O2 Sat by Pulse 100 99 99 Oximetry 07/04/19 07/04/19 07/04/19 06:13 06:18 06:23 Temperature Pulse Rate 69 75 79 Respiratory Rate Blood Pressure O2 Sat by Pulse 99 99 99 Oximetry 07/04/19 07/04/19 07/04/19 06:28 06:33 06:35 Temperature Pulse Rate 71 77 70 Respiratory Rate Blood Pressure 152/81 O2 Sat by Pulse 99 98 Oximetry 07/04/19 07/04/19 07/04/19 06:38 06:43 06:48 Temperature Pulse Rate 72 74 68 Respiratory Rate Blood Pressure O2 Sat by Pulse 99 100 99 Oximetry 07/04/19 07/04/19 07/04/19 06:53 06:58 07:03 Temperature Pulse Rate 71 79 78 Respiratory Rate Blood Pressure O2 Sat by Pulse 99 98 98 Oximetry 07/04/19 07/04/19 07/04/19 07:09 07:14 07:19 Temperature Pulse Rate 88 68 69 Respiratory Rate Blood Pressure O2 Sat by Pulse 99 99 99 Oximetry 07/04/19 07/04/19 07/04/19 07:24 07:29 07:34 Temperature Pulse Rate 80 67 72 Respiratory Rate Blood Pressure 131/69 O2 Sat by Pulse 98 98 98 Oximetry 07/04/19 07/04/19 07/04/19 07:39 07:44 07:49 Temperature Pulse Rate 79 68 71 Respiratory Rate Blood Pressure O2 Sat by Pulse 98 99 97 Oximetry 07/04/19 07/04/19 07/04/19 07:54 08:05 08:15 Temperature 98.1 F Pulse Rate 66 78 Respiratory 18 Rate Blood Pressure O2 Sat by Pulse 99 100 100 Oximetry 07/04/19 07/04/19 07/04/19 08:34 09:35 10:05 Temperature Pulse Rate 78 89 89 Respiratory Rate Blood Pressure 148/78 165/87 165/87 O2 Sat by Pulse Oximetry 07/04/19 07/04/19 07/04/19 11:34 12:05 12:34 Temperature 97.7 F Pulse Rate 75 88 Respiratory 18 Rate Blood Pressure 136/67 138/64 O2 Sat by Pulse Oximetry 07/04/19 13:34 Temperature Pulse Rate 77 Respiratory Rate Blood Pressure 138/64 O2 Sat by Pulse Oximetry - Exam Breasts: normal Cardiovascular: Regular rate, Normal S1 Lungs: Clear to auscultation, Normal air movement Abdomen: Present: normal appearance, soft, normal bowel sounds. Absent: distention, tenderness, guarding Uterus: Present: normal, firm, fundal height below umbilicus. Absent: bogginess, tenderness FHR: category 1 - Labs Labs: Abnormal Labs 07/03/19 07/03/19 07/03/19 10:30 10:37 11:42 D-Dimer 893.99 H Chloride 63.1 L Carbon Dioxide 19 L 17 L BUN 5 L 5 L Creatinine 0.5 L 0.5 L ALT < 5 L Alkaline Phosphatase < 5 L Albumin < 0.2 L Urine pH 07/03/19 Unknown D-Dimer Chloride Carbon Dioxide BUN Creatinine ALT Alkaline Phosphatase Albumin Urine pH 8.0 H Laboratory Results - last 24 hr 07/03/19 13:35 Troponin T < 0.010
[2019-07-04] MEDS: BETAMET ACET/BETAMET NA PH 6 MG/ML INJ 5 ML MDV IM SCH (16:20)
--- NOTE | 2019-07-04 16:56 | Consultation ---
History of Present Illness Consult date: 07/04/19 Consult reason: chest pain History of present illness: This is a 28-year old with chronic hypertension who presented to this hospital with complaints of chest pain. Patient had a systolic blood pressure greater than 200 in the emergency department. In addition, patient was found 25 weeks gestation. Patient denies unusual shortness of breath and palpitations. She denies headaches and dizziness. Patient admits she has been out of her medications for several weeks. A chest x-ray was negative for acute findings and her ECG is benign, a normal sinus rhythm. Cardiac consultation has been requested for evaluation of atypical chest pain. Past History Social history: single Medications and Allergies Allergies Allergy/AdvReac Type Severity Reaction Status Date / Time No Known Allergies Allergy Verified 04/10/17 22:14 Home Medications Medication Instructions Recorded Confirmed Last Taken Type Vit Calc,Iron,Folic 1 each PO DAILY #30 tablet 09/07/15 07/04/17 1 Day Ago Rx [ Vitamins] ~07/03/17 labetaloL [Labetalol 200mg TAB] 200 mg PO BID #60 tablet 05/18/17 07/04/17 07/04/17 06:30 Rx Ibuprofen [Motrin] 800 mg PO Q8HR PRN #60 tablet 07/05/17 Unknown Rx Oxycodone HCl/Acetaminophen 1 each PO Q6HR PRN #45 tablet 07/05/17 Unknown Rx [Percocet 7.5/325 mg] NIFEdipine XL [Procardia Xl] 90 mg PO QDAY #30 tablet 07/08/17 Unknown Rx labetaloL [Normodyne] 400 mg PO BID #120 tablet 07/08/17 Unknown Rx labetaloL [Labetalol 100mg TAB] 100 mg PO BID #60 tablet 04/15/18 Unknown Rx Ibuprofen [Motrin] 800 mg PO Q8HR PRN #30 tablet 09/13/18 Unknown Rx oxyCODONE /ACETAMINOPHEN [Percocet 1 tab PO Q6HR PRN #40 tablet 09/13/18 Unknown Rx 5/325] Ibuprofen [Motrin] 800 mg PO Q8HR PRN #30 tablet 09/14/18 Unknown Rx labetaloL [Labetalol 200mg TAB] 200 mg PO BID #60 tablet 09/14/18 Unknown Rx oxyCODONE /ACETAMINOPHEN [Percocet 1 tab PO Q6HR PRN #40 tablet 09/14/18 Unknown Rx 5/325] NIFEdipine XL [Procardia Xl] 60 mg PO QDAY #30 tablet 09/16/18 Unknown Rx labetaloL [Labetalol 200mg TAB] 200 mg PO BID #60 tablet 09/16/18 Unknown Rx Active Meds: Active Medications Acetaminophen (Tylenol) 650 mg PO Q4H PRN PRN Reason: Pain MILD(1-3)/Fever >100.5/HAGAN Betamethasone Acet/Betameth SodPhos (Celestone Soluspan) 12 mg IM Q24HR [facility] Stop: 07/04/19 17:00 Last Admin: 07/04/19 16:20 Dose: 12 mg Documented by: Docusate Sodium (Colace) 100 mg PO Q12H PRN PRN Reason: Constipation Hydralazine HCl (Apresoline) 5 mg IV Q30MIN PRN PRN Reason: Blood Pressure Labetalol HCl (Labetalol) 400 mg PO BID [facility] Last Admin: 07/04/19 10:05 Dose: 400 mg Documented by: Multivitamins/Iron/Calcium ( Vitamin) 1 each PO QDAY [facility] Last Admin: 07/04/19 10:06 Dose: 1 each Documented by: Physical Examination Vital Signs Temp Pulse Resp BP Pulse Ox 98.1 F 87 16 204/122 100 07/03/19 09:33 07/03/19 09:33 07/03/19 09:33 07/03/19 09:33 07/03/19 09:33 General appearance: no acute distress, obese HEENT: Positive: PERRL Neck: Positive: trachea midline Cardiac: Positive: Reg Rate and Rhythm Lungs: Positive: Normal Breath Sounds Neuro: Positive: Grossly Intact Extremities: Absent: edema Results 07/03/19 10:30 07/03/19 11:42 Assessment and Plan Atypical chest pain normal ECG Chronic hypertension 25 weeks gestation Noncompliant with her medications We will obtain an echocardiogram for LVEF assessment. Otherwise, continue optimal medical therapy for chronic hypertension.
[2019-07-04 17:12] LABS: Creatinine 24 Hour,Urine 1.9 (0.8-2.8); Creatinine,Urine 61.5 mg/dL (0.1-20.0)
--- NOTE | 2019-07-05 08:25 | Consultation ---
History of Present Illness Consult date: 07/05/19 Reason for consult: other (Chest pain and CHTN) History of present illness: Ms. Cuellar is a 28 yo, , AMBER 10/11/19 at 26.0 weeks, who presented to the ED with complaints of chest pain x 4 days. She admits CHTN, Preeclampsia hx, and PTD hx due to poor CHTN control/Preeclampsia. She declined knowlegde of current and has not received care. Chest xray in hospital is normal sinus rhythm. Cardiac enzymes are normal. Echocardiogram pending per Cardiology. She currently denies any contractions, leakage of fluid, or vaginal bleeding. She admits positive movements. She denies Preeclampsia symptoms. 24 hour urine protein resulted at 186. She currently denies chest pain, chest heaviness, palpitations, and SOB. Past History Past Medical History: hypertension Past Surgical History: section - Obstetrical History : 10 Medications and Allergies Allergies Allergy/AdvReac Type Severity Reaction Status Date / Time No Known Allergies Allergy Verified 04/10/17 22:14 Home Medications Medication Instructions Recorded Confirmed Last Taken Type No Known Home Medications [No 07/04/19 07/04/19 Unknown History Reported Home Medications] Active Meds: Active Medications Acetaminophen (Tylenol) 650 mg PO Q4H PRN PRN Reason: Pain MILD(1-3)/Fever >100.5/HAGAN Docusate Sodium (Colace) 100 mg PO Q12H PRN PRN Reason: Constipation Hydralazine HCl (Apresoline) 5 mg IV Q30MIN PRN PRN Reason: Blood Pressure Labetalol HCl (Labetalol) 400 mg PO BID [facility] Last Admin: 07/04/19 21:52 Dose: 400 mg Documented by: Multivitamins/Iron/Calcium ( Vitamin) 1 each PO QDAY [facility] Last Admin: 07/04/19 10:06 Dose: 1 each Documented by: Review of Systems Constitutional: other (denies fever, chills, fatigue) Eyes: other (denies visual disturbances) Ears, nose, mouth and throat: deferred Cardiovascular: high blood pressure, other (denies SOB, palpitations, chest greg n) Respiratory: other (denies SOB, wheezing, coughing) Breasts: deferred Gastrointestinal: other (denies constipation, diarrhea, nausea/vomiting) Genitourinary: other (denies leaking of fluid, vaginal bleeding, contractions) Rectal Exam: deferred Integumentary: deferred Neurological: other (denies headaches) - Vital Signs Vital signs: Vital Signs Temp Pulse Resp BP Pulse Ox 98.1 F 87 16 204/122 100 07/03/19 09:33 07/03/19 09:33 07/03/19 09:33 07/03/19 09:33 07/03/19 09:33 Temp Pulse Resp BP Pulse Ox 97.9 F 60 18 166/75 100 07/05/19 03:10 07/05/19 07:28 07/05/19 03:10 07/05/19 07:28 07/04/19 08:15 - Physical Exam Breasts: Positive: deferred Cardiovascular: Regular rate, Normal S1, Normal S2, No murmurs Lungs: Positive: Clear to auscultation, Normal air movement Abdomen: Positive: normal appearance, soft, other (gravid) Deep Tendon Reflex Grade: Normal +2 Results Result Diagrams: 07/03/19 10:30 07/03/19 11:42 Abnormal lab results 07/03/19 Range/Units Unknown Urine Creatinine 61.5 H (0.1-20.0) mg/dL All other labs normal. Assessment and Plan A: SIUP 26.0 weeks ( AMBER 10/11/19) No care Acute Chest Pain x 4 days- currently denies chest pain Normal SR, Normal Cardiac Enzymes Labile BPs ( 130s-160s/60s-80s) on Labetalol 400mg BID 24 hour urine protein 186 Denies Preeclampsia symptoms Denies contractions, LOF, and Bleeding Positive movements CHTN Preeclampsia hx Obesity S/P Betamethasone x 2 hx P: Continue inpatient management Cardiology for Echocardiogram Initiate Aspirin 81 mg PO once daily Consider adjunct therapy with Nifedipine ER 30mg once daily for CHTN management monitoring Q8 hrs Thank you for your consult. For any additional questions or concerns, please contact chief cardiopulmonary technologist [facility].
[2019-07-05] MEDS: PRENATAL VIT27-FE FUMARATE-FOLIC ACID VIT TAB PO SCH (09:41)
--- NOTE | 2019-07-05 14:07 | Progress Note ---
Assessment and Plan Atypical chest pain normal ECG Chronic hypertension 25 weeks gestation Noncompliant with her medications An echocardiogram done this admission, reports a normal left ventricular systolic function, EF 65%. Continue optimal medical therapy for chronic hypertension. Otherwise, conservative cardiac management. We will sign off. Subjective Date of service: 07/05/19 Principal diagnosis: chest pain Interval history: Patient has no cardiac complaints. Objective Vital Signs Temp Pulse Resp BP BP Pulse Ox 07/05/19 13:18 98.9 F 63 16 99 07/05/19 13:13 76 166/88 07/05/19 12:55 81 167/93 07/05/19 11:55 78 172/80 07/05/19 10:57 96 H 129/69 07/05/19 10:07 82 133/60 07/05/19 10:00 88 186/98 07/05/19 09:55 85 186/98 07/05/19 09:41 79 144/72 07/05/19 09:39 79 144/72 07/05/19 07:28 60 166/75 07/05/19 05:56 65 131/60 07/05/19 04:55 64 156/81 07/05/19 03:55 57 L 165/77 07/05/19 03:10 97.9 F 57 L 18 152/72 152/72 07/05/19 02:55 85 187/83 07/05/19 01:55 80 148/78 07/05/19 00:55 75 159/68 07/04/19 23:55 96 H 137/81 07/04/19 22:55 69 159/74 07/04/19 21:52 83 167/77 07/04/19 20:55 82 167/77 07/04/19 20:08 98.8 F 72 18 132/64 07/04/19 19:55 72 132/64 07/04/19 16:34 76 157/83 07/04/19 16:19 97.9 F 71 18 155/82 07/04/19 16:18 74 164/72 07/04/19 15:35 62 137/67 07/04/19 14:34 82 131/60 - Physical Examination General: No Apparent Distress HEENT: Positive: PERRL Neck: Positive: trachea midline Cardiac: Positive: Reg Rate and Rhythm Lungs: Positive: Decreased Breath Sounds Neuro: Positive: Grossly Intact Extremities: Absent: edema
--- NOTE | 2019-07-05 15:24 | Progress Note ---
Assessment and Plan - Patient Problems (1) No care in current Current Visit: Yes Status: Acute Plan to address problem: patient doing well discharge home (2) Chest pain Current Visit: Yes Status: Acute (3) Hypertension affecting in second trimester Onset Date: 09/06/15 Current Visit: No Status: Acute Subjective - Subjective Date of service: 07/05/19 Principal diagnosis: chest pain Interval history: Patient reports improvement in symptoms. Patient responding to labetalol. Echocardiogram unremarkable Patient reports: movement normal, no new complaints, no loss of fluid, no vaginal bleeding, no contractions Objective - Vital Signs Vital Signs: Vital Signs - 12hr 07/05/19 07/05/19 07/05/19 03:55 04:55 05:56 Temperature Pulse Rate 57 L 64 65 Respiratory Rate Blood Pressure 165/77 156/81 131/60 O2 Sat by Pulse Oximetry 07/05/19 07/05/19 07/05/19 07:28 09:39 09:41 Temperature Pulse Rate 60 79 79 Respiratory Rate Blood Pressure 166/75 144/72 144/72 O2 Sat by Pulse Oximetry 07/05/19 07/05/19 07/05/19 09:55 10:00 10:07 Temperature Pulse Rate 85 88 82 Respiratory Rate Blood Pressure 186/98 186/98 133/60 O2 Sat by Pulse Oximetry 07/05/19 07/05/19 07/05/19 10:57 11:55 12:55 Temperature Pulse Rate 96 H 78 81 Respiratory Rate Blood Pressure 129/69 172/80 167/93 O2 Sat by Pulse Oximetry 07/05/19 07/05/19 07/05/19 13:13 13:18 14:13 Temperature 98.9 F Pulse Rate 76 63 97 H Respiratory 16 Rate Blood Pressure 166/88 157/85 O2 Sat by Pulse 99 Oximetry 07/05/19 14:55 Temperature Pulse Rate 87 Respiratory Rate Blood Pressure 120/56 O2 Sat by Pulse Oximetry - Labs Labs: Abnormal Labs 07/03/19 07/03/19 07/03/19 10:30 10:37 11:42 D-Dimer 893.99 H Chloride 63.1 L Carbon Dioxide 19 L 17 L BUN 5 L 5 L Creatinine 0.5 L 0.5 L ALT < 5 L Alkaline Phosphatase < 5 L Albumin < 0.2 L Urine pH Urine Creatinine 07/03/19 07/03/19 Unknown Unknown D-Dimer Chloride Carbon Dioxide BUN Creatinine ALT Alkaline Phosphatase Albumin Urine pH 8.0 H Urine Creatinine 61.5 H Laboratory Results - last 24 hr 07/03/19 Unknown Urine Total Volume 3100 Urine Creatinine 61.5 H Ur Creatinine 24 Hour 1.9 Ur Total Protein 24 Hr 186.00 Urine Total Protein 6
--- NOTE | 2019-07-05 15:27 | Discharge Summary ---
Providers - Providers Date of Admission: 07/03/19 11:48 Date of discharge: 07/05/19 Attending physician: JUAN REA 07/04/19 13:56 Consult to Physician [CONS] Urgent Comment: Consulting Provider: SABRINA SANTANA Physician Instructions: Reason For Exam: chest pain, HTN, 07/04/19 14:03 Consult to Physician [CONS] Urgent Comment: Consulting Provider: ELIA KITCHEN Physician Instructions: Reason For Exam: chest pain and 25 weeks Primary care physician: ACCOUNT RETENTION REPRESENTATIVE Hospitalization Reason for admission: other (hypertension and chest pain) Discharge diagnosis: other (gestational hypertension) Hospital course: Patient admitted thru ED for chest pain. Patient has not had care during this . Severe range blood pressures at presentation. Patient received steroids and labetalol. Echo wnl. Condition at discharge: Stable Disposition: DC-01 TO HOME OR SELFCARE - Discharge Diagnoses (1) No care in current Status: Acute (2) Chest pain Status: Acute (3) Hypertension affecting in second trimester Status: Acute Plan - Discharge Medications Prescriptions: labetaloL [Labetalol 200mg TAB] 400 mg PO BID #60 tablet - Provider Discharge Summary Activity: no sex for 6 weeks, no heavy lifting 4 weeks, no strenuous exercise Diet: routine Instructions: routine Additional instructions: [] Smoking cessation referral if applicable(refer to patient education folder for contact #) [] Refer to [facility] Booklet Call your doctor immediately for: * Fever > 100.5 * Heavy vaginal bleeding ( >1 pad per hour) * Severe persistent headache * Shortness of breath * Reddened, hot, painful area to leg or breast * schedule followup within one week - Follow up plan
[2019-07-05 15:51] VITALS: BP 164/79
== END 2019-07-05 16:00 | disposition home or self-care (01) | DRG 833 ==
LOC: ED 09:29 → LD 11:48
PROVIDERS: ADMIT Obstetrics & Gynecology; ATTEND Obstetrics & Gynecology
DX: O13.2 Gestational [pregnancy-induced] hypertension without significant proteinuria, second trimester (principal); O99.512 Diseases of the respiratory system complicating pregnancy, second trimester; O99.212 Obesity complicating pregnancy, second trimester; J45.909 Unspecified asthma, uncomplicated; O14.92 Unspecified pre-eclampsia, second trimester; Z87.891 Personal history of nicotine dependence; Z91.14 Patient's other noncompliance with medication regimen
CPT/HCPCS: 36415; 71045; 71275; 76805; 80048; 80076; 81001; 82550; 82553; 82570; 83735; 83880; 84156; 84484; 85025; 85379; 85610; 85730; 93005; 93010; 93306; G0378; J0360; J0702; J3475; J7120; Q9967

== ENCOUNTER 2019-08-05 10:28 | Outpatient (CLI) | payer OTHER ==
[2019-08-05] MEDS ORDERED: LACTATED RINGERS 500 ML IV ONE (10:57)
[2019-08-05 11:36] VITALS: BP 114/59
== END 2019-08-05 12:12 | disposition home or self-care (01) ==
LOC: TRG 10:28
PROVIDERS: ATTEND Obstetrics & Gynecology
DX: O26.893 Other specified pregnancy related conditions, third trimester (principal); R10.9 Unspecified abdominal pain; Z3A.30 30 weeks gestation of pregnancy

== ENCOUNTER 2019-08-15 21:17 | Outpatient (CLI) | payer OTHER ==
[2019-08-15 23:08] LABS: Basophils # (Auto) 0.1 K/mm3 (0.0-0.1); Basophils % (Auto) 0.7 % (0.0-1.8); Eosinophils # (Auto) 0.2 K/mm3 (0.0-0.4); Eosinophils % (Auto) 1.9 % (0.0-4.3); Hematocrit 32.7 % (30.3-42.9); Hemoglobin 10.9 gm/dl (10.1-14.3); Lymphocytes # (Auto) 2.9 K/mm3 (1.2-5.4); Lymphocytes % (Auto) 29.3 % (13.4-35.0); Mean Corpuscular HGB Conc 34 % (30-34); Mean Corpuscular Volume 86 fl (79-97); Monocytes # (Auto) 0.9 K/mm3 (0.0-0.8); Monocytes % (Auto) 8.7 % (0.0-7.3); Platelet Count 285 K/mm3 (140-440); Red Blood Count 3.78 M/mm3 (3.65-5.03); Red Cell Distribution Width 13.6 % (13.2-15.2)
[2019-08-16] LABS: Bacteria,Urine 1+ /HPF (Negative); Bilirubin,Urine MOD (Negative); Blood,Urine NEG (Negative); Color,Urine Amber (Yellow); Mucus,Urine 3+ /HPF
[2019-08-16 00:44] LABS: Ictotest,Urine Negative (Negative)
[2019-08-16 03:21] VITALS: BP 102/72
== END 2019-08-16 00:45 | disposition home or self-care (01) ==
LOC: TRG 21:17
PROVIDERS: ATTEND Obstetrics & Gynecology
DX: O26.893 Other specified pregnancy related conditions, third trimester (principal); R10.9 Unspecified abdominal pain; Z3A.31 31 weeks gestation of pregnancy
CPT/HCPCS: 36415; 59025; 81001; 85025; 87086

== ENCOUNTER 2019-09-17 11:15 | Inpatient (IN) | payer MEDICAID ==
[2019-09-17] MEDS ORDERED: FAMOTIDINE 20 MG/2 ML INJ IV ONE (11:27)
[2019-09-17] MEDS ORDERED: METOCLOPRAMIDE 10 MG/2 ML INJ IV ONE (11:27)
[2019-09-17] MEDS ORDERED: BICITRA ORAL LIQD 30ML PO ONE (11:27)
[2019-09-17] MEDS ORDERED: OXYTOCIN 20 UNIT/1000ML DRIP 20 UNITS/1,000 ML BAG IV SCH ×2 (12:00→19:00)
[2019-09-17] MEDS ORDERED: LACTATED RINGERS 1,000 ML IV SCH (12:00)
[2019-09-17] MEDS ORDERED: ceFAZolin/Water 2 GM/20 ML 2 GM/20 ML SYRINGE IV NR (12:00)
[2019-09-17 12:08] LABS: Basophils % (Auto) 0.4 % (0.0-1.8); Eosinophils # (Auto) 0.1 K/mm3 (0.0-0.4); Eosinophils % (Auto) 1.5 % (0.0-4.3); Hematocrit 34.1 % (30.3-42.9); Hemoglobin 11.6 gm/dl (10.1-14.3); Lymphocytes % (Auto) 24.4 % (13.4-35.0); Mean Corpuscular HGB Conc 34 % (30-34); Mean Corpuscular Volume 85 fl (79-97); Monocytes # (Auto) 0.8 K/mm3 (0.0-0.8); Monocytes % (Auto) 9.6 % (0.0-7.3); Platelet Count 263 K/mm3 (140-440); Red Cell Distribution Width 13.7 % (13.2-15.2)
--- NOTE | 2019-09-17 13:49 | Anesthesia Consultation ---
Anesthesia Consult and Med Hx Date of service: 09/17/19 - Airway Anesthetic Teeth Evaluation: Good ROM Head & Neck: Adequate Mental/Hyoid Distance: Adequate Mallampati Class: Class II Intubation Access Assessment: Probably Good - Pulmonary Exam CTA: Yes - Cardiac Exam Cardiac Exam: RRR - Pre-Operative Health Status ASA Pre-Surgery Classification: ASA3 Proposed Anesthetic Plan: Spinal - Pulmonary Hx Smoking: No Hx Asthma: No Hx Respiratory Symptoms: No SOB: No COPD: No Hx Pneumonia: No Hx Sleep Apnea: No - Cardiovascular System Hx Hypertension: Yes Hx Coronary Artery Disease: No Hx Heart Attack/AMI: No Hx Angina: No Hx Percutaneous Transluminal Coronary Angioplasty (PTCA): No Hx Cardia Arrhythmia: No Hx Pacemaker: No Hx Internal Defibrillator: No Hx Valvular Heart Disease: No Hx Heart Murmur: No Hx Peripheral Vascular Disease: No - Central Nervous System Hx Neuromuscular Disorder: No Hx Seizures: No CVA: No Hx Back Pain: No Hx Psychiatric Problems: No - Gastrointestinal Hx Ulcer: No Hx Gastroesophageal Reflux Disease: No - Endocrine Hx Renal Disease: No Hx End Stage Renal Disease: No Hx Cirrhosis: No Hx Liver Disease: No Hx Insulin Dependent Diabetes: No Hx Non-Insulin Dependent Diabetes: No Hx Thyroid Disease: No Hx Hypothyroidism: No Hx Hyperthyroidism: No - Hematic Hx Anemia: No Hx Sickle Cell Disease: No - Other Systems Hx Alcohol Use: No Hx Substance Use: No Hx Cancer: No Hx Obesity: Yes (BMI 43.9)
--- NOTE | 2019-09-17 13:50 | Anesthesia Day of Surgery ---
Anesthesia Day of Surgery - Day of Surgery Patient Examined: Yes Patient H&P Reviewed: Yes Patient is NPO: Yes (at 1500)
[2019-09-17] MEDS ORDERED: hydrALAZINE 20 MG/1 ML INJ IV NR (14:45)
[2019-09-17] MEDS ORDERED: hydrALAZINE 20 MG/1 ML INJ ONE (14:48)
[2019-09-17 15:54] LABS: Alanine Aminotransferase 9 units/L (7-56); Uric Acid 5.5 mg/dL (3.5-7.6)
[2019-09-17 15:56] LABS: Bilirubin,Urine NEG (Negative); Blood,Urine NEG (Negative); Color,Urine Yellow (Yellow); Mucus,Urine FEW /HPF; Protein,Urine <15 mg/dL mg/dL (Negative); Urobilinogen,Urine < 2.0 mg/dL (<2.0); WBC,Urine < 1.0 /HPF (0.0-6.0)
--- NOTE | 2019-09-17 16:52 | History and Physical Report ---
History of Present Illness Date of examination: 09/17/19 Date of admission: 09/17/19 11:15 Chief complaint: elevated BP at 36 weeks. Patient is non compliant and had it only 3 visits. She came to appt and previously scheduled at 37 weeks in ( 3 days) Patient c/o headache and hx of BP meds on labetolol 400 mg bid. 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 HX of pree and hx of ptd. 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 denies: smoking, alcohol abuse, prescription drug abuse - Obstetrical History Expected Date of Delivery: 10/11/19 Actual Gestation: 36 Week(s) 4 Day(s) : 9 Para: 5 Hx # Term Pregnancies: 5 Number of Pregnancies: 3 Spontaneous Abortions: 0 Induced : 1 Number of Living Children: 9 Medications and Allergies Allergies Allergy/AdvReac Type Severity Reaction Status Date / Time No Known Allergies Allergy Verified 09/17/19 11:26 Home Medications Medication Instructions Recorded Confirmed Last Taken Type labetaloL [Labetalol 200mg TAB] 400 mg PO QDAY 08/16/19 08/16/19 09/17/19 History Aspirin [Aspirin BABY CHEW TAB] 81 mg PO DAILY 09/17/19 09/17/19 09/16/19 History Active Meds: Active Medications Oxytocin/Sodium Chloride (Pitocin/Ns 20 Unit/1000ml Drip) 20 units in 1,000 mls @ 0 mls/hr IV TITR KADI Lactated Ringer's (Lactated Ringers) 1,000 mls @ 2,250 mls/hr IV PREOP KADI Stop: 09/18/19 12:27 Last Admin: 09/17/19 12:18 Dose: 2,250 mls/hr Documented by: Cefazolin Sodium (Ancef/Sterile Water 2 Gm/20 Ml) 2 gm in 20 mls @ 80 mls/hr IV PREOP NR; Protocol Stop: 09/17/19 23:59 Review of Systems All systems: negative - Vital Signs Vital signs: Vital Signs Pulse BP 88 209/121 09/17/19 11:42 09/17/19 11:42 Temp Pulse Resp BP Pulse Ox 98.1 F 97 H 16 182/87 09/17/19 12:04 09/17/19 16:35 09/17/19 12:04 09/17/19 16:35 - Physical Exam Breasts: Positive: normal Cardiovascular: Regular rate, Normal S1 Lungs: Positive: Clear to auscultation, Normal air movement Abdomen: Positive: normal appearance, soft, normal bowel sounds. Negative: distention, tenderness, guarding Genitourinary (Female): Positive: normal external genitalia, normal perenium Vagina: Positive: normal moisture Uterus: Positive: normal size, normal contour Anus/Rectum: Positive: normal perianal skin Extremities: Positive: normal Deep Tendon Reflex Grade: Normal +2 - Obstetrical FHR: category 1 Results Result Diagrams: 09/17/19 11:45 09/17/19 11:45 Abnormal lab results 09/17/19 09/17/19 Range/Units 11:45 11:45 [place] % (Auto) 9.6 H (0.0-7.3) % Creatinine 0.5 L (0.7-1.2) mg/dL Lactate Dehydrogenase 186 H (91-180) units/L All other labs normal. Assessment and Plan A/P IUP 36+4 weeks non compliant/poor care cHTN with sx of severe pree proceed with repeat csec discussed r/b/a of procedurewhich include bleeding infection, damage to pelvic and non pelvic organs risk of and hyserectomy.
[2019-09-17] MEDS ORDERED: SODIUM CHLORIDE 0.9% IRR 1,500 ML BOTTLE IR ONE (17:00)
[2019-09-17] MEDS ORDERED: WATER FOR IRRIG STERILE 1,500 ML BOTTLE IR ONE (17:00)
[2019-09-17] MEDS ORDERED: ceFAZolin/STERILE WATER 2 GM/20 ML SYRINGE IV ONE (17:15)
[2019-09-17] MEDS ORDERED: DEXMEDETOMIDINE 200 MCG/2 ML VIAL IV ONE (17:33)
[2019-09-17] MEDS ORDERED: SODIUM CHLORIDE 0.9% 500 ML 500 ML ONE (17:33)
[2019-09-17] MEDS ORDERED: BUPIVACAINE/PF (0.5%) 5 MG/1 ML 30 ML VIAL INFILTRATI ONE (17:33)
[2019-09-17] MEDS ORDERED: KETOROLAC 30 MG/1 ML INJ ONE (17:33)
[2019-09-17] MEDS ORDERED: LACTATED RINGERS 1,000 ML ONE (17:33)
[2019-09-17] MEDS ORDERED: dexAMETHasone 20 MG/5 ML VIAL ONE (17:33)
[2019-09-17] MEDS ORDERED: OXYTOCIN 10 UNIT/1 ML INJ ONE (17:33)
[2019-09-17] MEDS ORDERED: MORPHINE 2 MG/1 ML INJ IV PRN (18:01)
[2019-09-17] MEDS ORDERED: KETOROLAC 30 MG/1 ML INJ IV PRN ×2 (18:01)
[2019-09-17] MEDS ORDERED: WITCH HAZEL/ GLYCERIN PAD TP PRN (18:01)
[2019-09-17] MEDS ORDERED: MAGNESIUM HYDROXIDE (MOM) ORAL LIQD UDC PO PRN (18:01)
[2019-09-17] MEDS ORDERED: oxyCODONE /ACETAMINOPHEN 5-325MG TAB PO PRN (18:01)
[2019-09-17] MEDS ORDERED: ONDANSETRON 4 MG/2 ML INJ IV PRN (18:01)
[2019-09-17] MEDS ORDERED: HYDROcodone/ACETAMINOPHEN 5-325 MG TAB PO PRN (18:01)
[2019-09-17] MEDS ORDERED: NALOXONE 0.4 MG/1 ML INJ IV PRN (18:01)
[2019-09-17] MEDS ORDERED: LANOLIN/ZINC/DIMETHICONE (LANSINOH) 7 GM TP PRN (18:01)
[2019-09-17] MEDS ORDERED: SENNOSIDES 8.6 MG TAB PO PRN (18:01)
[2019-09-17] MEDS ORDERED: PROMETHAZINE 25 MG RECT SUPP PR PRN (18:01)
[2019-09-17] MEDS ORDERED: SIMETHICONE 80 MG CHEW TAB PO PRN (18:01)
[2019-09-17] MEDS ORDERED: ACETAMINOPHEN 325 MG TAB PO PRN (18:01)
[2019-09-17] MEDS ORDERED: HYDROCORTISONE 25 MG RECTAL SUPP PR PRN (18:01)
--- NOTE | 2019-09-17 18:05 | Procedure Note ---
OB Delivery Note - Delivery Date of Delivery: 09/17/19 Surgeon: MAGDA TURPIN Estimated blood loss: 500cc - Section Preop diagnosis: repeat Postop diagnosis: same section procedure: section Disposition: PACU Complications: none Narrative: see op note - Infant A at 1 minute: 8 at 5 minutes: 9 Gender: Male (6 pounds 0 oz)
--- NOTE | 2019-09-17 18:08 | Operative Report ---
Operative Report Operative Report: Operative Report: Date of procedure: September 17, 2019 Preoperative diagnosis: 1) IUP at 36+4 weeks 2) Previous x 3 3. Preeclampsia Postoperative diagnosis: Same Procedure: 1) Repeat low transverse section x3 Surgeon: Amalia Fraser MD Anesthesia: Regional Findings: 1) Viable Male , Apgars 8 and 9, weight6 pounds 0 oz in cephalic presentation. 2) Normal-appearing uterus ovaries and tubes Estimated blood loss: 500 mL IV fluids: 500 mL Urine output: 100 clear yellow urine Drains: Luna to gravity Specimens: None Complications: None. Counts correct x 3 Disposition: Stable to PACU Indication for procedure: Pt is a 28 year old at 36+4 with three prior sections Operation in detail: After the risks, benefits, alternatives and complications were explained to the patient she gave informed consent for the procedure. She was subsequently taken to the operating room where regional anesthesia was noted to be adequate. She was subsequently placed in the dorsal supine position with leftward tilt and prepped and draped in a normal sterile fashion. heart tones were noted prior to incision. A timeout was performed. A Pfannenstiel skin incision was made with the knife and carried down to the layer of the fascia with the Bovie. The fascia was incised in the midline and the fascial incision was extended bilaterally with the Bovie. The fascial incision was then stretched. The rectus muscles were then in the midline and partially transected for adequate visualization. The peritoneum was then entered sharply between two Nicole clamps. The peritoneal incision was extended with good visualization of the bladder. The peritoneal incision was then stretched. An Avi retractor was placed. The bladder blade was then placed. A transverse incision was made in the lower uterine segment with a knife and extended bilaterally with the bandage scissors. Amniotomy was performed with egress of clear fluid. head delivered with ease, followed by shoulders and body. bulb suctioned at delivery. Cord clamped and cut. handed to NICU staff in attendance. Cord blood was collected. The placenta was then delivered manually. The uterus was unable to be exteriorized due to dense adhesions that surround the uterus. The fallopian tubes were not visible due to the adhesions and therefore a tubal ligation was not performed. The uterus was cleared of all clots and debris. The hysterotomy was then reapproximated with 0 Vicryl in a running locked fashion. A second layer of the same suture was used in imbricating fashion. The hysterotomy was inspected and hemostasis was noted. The gutters were irrigated and cleared of all clots and debris. The hysterotomy was again inspected and noted to be hemostatic. Surgicel was placed over the hysterotomy. Surgicel was placed on the anterior surface of the uterus. The Avi retractor was removed. The peritoneum was reapproximated with 2-0 Vicryl in a running fashion incorporating the rectus muscles. Additional figure of eight sutures of 2-0 Vicryl were used to reapproximate the rectus muscles. Surgicel was placed over the rectus muscles. The fascia was reapproximated with 0 Vicryl in a running fashion. The subcutaneous tissue was reapproximated with 2-0 Vicryl in a running fashion. The skin was reapproximated Alfredo needle. The incision was then covered with a pressure dressing. The procedure was then ended. The patient tolerated the procedure well and was taken to the PACU in stable condition. All instrument, lap, and needle counts were correct 3.
--- NOTE | 2019-09-17 18:55 | Post Anesthesia Evaluation ---
- Post Anesthesia Evaluation Patient Participated: Yes Airway Patent: Yes Stable Respiratory Function: Yes Nausea/Vomiting: No Temp > 96.8F: Yes Pain Manageable: Yes Adequeate Hydration: Yes Anesthesia Complications: No Block Receding Appropriately: Yes
[2019-09-17] MEDS ORDERED: hydrALAZINE 20 MG/1 ML INJ IV PRN (19:00)
[2019-09-17] MEDS ORDERED: MAGNESIUM SULFATE 4 GM/100 ML BAG IV ONE (19:30)
--- NOTE | 2019-09-17 20:35 | XRay Report ---
CHEST 2 VIEWS, 09/17/2019 7:13 PM INDICATION: Chest pain. COMPARISON: Chest radiograph, 07/03/2019 FINDINGS: Support devices: None Heart: The heart is normal in size. Lungs/pleura: The lungs are clear of focal airspace disease or significant pleural effusion. Additional findings: No significant acute abnormality. IMPRESSION: 1. No evidence of acute cardiopulmonary process. Signer Name: Caroline Craven MD Signed: 09/17/2019 8:31 PM Workstation Name: [id number]
[2019-09-17] MEDS ORDERED: ALBUTEROL 2.5 MG/3 ML NEBU IH PRN (20:52)
[2019-09-17] MEDS ORDERED: ALBUTEROL 2.5 MG/3 ML NEBU IH ONE (20:56)
[2019-09-17] MEDS: MAGNESIUM SULFATE 40GM/1000ML 40 GM/1,000 ML BAG IV SCH (21:50)
[2019-09-17] MEDS: MORPHINE 4 MG/1 ML INJ IV PRN (23:46)
[2019-09-18] MEDS: D5W/LACTATED RINGERS 1,000 ML IV SCH ×2 (04:49→17:53)
[2019-09-18] MEDS ORDERED: TETANUS,DIPH,PERTUSS(ACELL) VACCINE 0.5 ML SYRINGE IM ONE (06:00)
[2019-09-18 06:12] LABS: Hematocrit 34.9 % (30.3-42.9); Hemoglobin 11.3 gm/dl (10.1-14.3)
[2019-09-18] MEDS: IBUPROFEN 800 MG TAB PO PRN ×2 (09:26→17:32)
[2019-09-18] MEDS: FERROUS SULFATE 325 MG TAB PO SCH (10:27)
[2019-09-18] MEDS: MORPHINE 4 MG/1 ML INJ IV PRN (11:24)
--- NOTE | 2019-09-18 13:44 | Progress Note ---
Assessment and Plan A/P POD1 s/p repeat csec on mag for pree continue routine PP care Subjective - Subjective Date of service: 09/18/19 Principal diagnosis: s/p repeat csec, cHTN Patient reports: appetite normal, voiding normally, pain well controlled, flatus, ambulating normally [place]: doing well Objective - Vital Signs Latest vital signs: Vital Signs Temp Pulse Pulse Resp Resp BP Pulse Ox 09/18/19 13:40 74 100 09/18/19 13:35 75 100 09/18/19 13:30 79 100 09/18/19 13:29 82 84 09/18/19 13:25 77 100 09/18/19 13:20 79 100 09/18/19 13:15 77 100 09/18/19 13:10 74 100 09/18/19 13:05 73 100 09/18/19 13:00 78 100 09/18/19 12:55 78 99 09/18/19 12:50 75 99 09/18/19 12:49 67 138/78 09/18/19 12:45 76 99 09/18/19 12:40 82 99 09/18/19 12:35 78 99 09/18/19 11:53 83 98 09/18/19 11:48 97 H 98 09/18/19 11:43 81 98 09/18/19 11:38 82 98 09/18/19 11:33 82 98 09/18/19 11:28 83 99 09/18/19 11:24 16 09/18/19 11:23 74 99 09/18/19 11:18 81 99 09/18/19 11:14 78 125/75 09/18/19 10:32 91 H 99 09/18/19 10:27 86 151/72 99 09/18/19 10:22 83 99 09/18/19 10:17 83 99 09/18/19 10:12 87 99 09/18/19 10:07 89 151/72 100 09/18/19 10:02 82 100 09/18/19 09:57 82 100 09/18/19 09:52 78 100 09/18/19 09:47 84 99 09/18/19 09:42 85 99 09/18/19 09:37 81 150/68 99 09/18/19 09:32 89 99 09/18/19 09:27 86 99 09/18/19 09:22 83 99 09/18/19 09:17 81 98 09/18/19 09:12 80 98 09/18/19 09:07 78 148/78 99 09/18/19 09:02 81 98 09/18/19 08:57 82 98 09/18/19 08:52 81 98 09/18/19 08:47 79 99 09/18/19 08:42 82 98 09/18/19 08:38 79 158/84 09/18/19 08:37 77 99 09/18/19 08:32 77 99 09/18/19 08:27 81 99 09/18/19 08:22 79 98 09/18/19 08:17 94 H 99 09/18/19 08:12 84 99 09/18/19 08:08 83 159/79 09/18/19 08:07 85 98 09/18/19 08:02 82 97 09/18/19 07:57 83 97 09/18/19 07:52 82 97 09/18/19 07:47 82 98 09/18/19 07:43 79 144/74 09/18/19 07:42 80 98 09/18/19 07:38 79 177/85 09/18/19 07:37 83 98 09/18/19 07:32 84 98 09/18/19 07:27 88 98 09/18/19 07:22 78 99 09/18/19 07:17 86 98 09/18/19 07:12 89 97 09/18/19 07:11 97.7 F 89 18 97 09/18/19 07:07 84 159/85 98 09/18/19 07:02 91 H 97 09/18/19 06:57 83 98 09/18/19 06:52 87 153/82 98 09/18/19 06:47 85 98 09/18/19 06:42 82 98 09/18/19 06:37 81 140/75 98 09/18/19 06:32 85 98 09/18/19 06:27 84 98 09/18/19 06:22 86 140/80 98 09/18/19 06:17 88 98 09/18/19 06:12 89 98 09/18/19 06:07 81 137/70 98 09/18/19 06:02 81 98 09/18/19 05:57 82 98 09/18/19 05:52 89 138/72 98 09/18/19 05:47 85 98 09/18/19 05:42 92 H 98 09/18/19 05:37 82 140/68 97 09/18/19 05:32 83 97 09/18/19 05:27 82 97 09/18/19 05:22 83 138/65 97 09/18/19 05:17 84 98 09/18/19 05:12 85 98 09/18/19 05:07 83 137/65 99 09/18/19 05:02 81 98 09/18/19 04:57 78 98 09/18/19 04:52 86 138/66 98 09/18/19 04:47 83 98 09/18/19 04:46 97.8 F 09/18/19 04:42 86 98 09/18/19 04:37 82 149/76 98 09/18/19 04:32 87 98 09/18/19 04:27 85 98 09/18/19 04:22 87 147/78 97 09/18/19 04:17 87 97 09/18/19 04:12 88 97 09/18/19 04:07 85 158/86 97 09/18/19 04:02 85 97 09/18/19 03:57 85 98 09/18/19 03:52 87 147/78 97 09/18/19 03:47 88 97 09/18/19 03:42 89 98 09/18/19 03:37 85 148/78 98 09/18/19 03:32 81 98 09/18/19 03:27 86 98 09/18/19 03:22 83 145/76 98 09/18/19 03:17 83 98 09/18/19 03:12 80 98 09/18/19 03:07 82 141/71 98 09/18/19 03:02 88 98 09/18/19 02:57 82 98 09/18/19 02:52 80 141/71 99 09/18/19 02:47 86 98 09/18/19 02:42 79 99 09/18/19 02:37 86 147/74 98 09/18/19 02:32 85 98 09/18/19 02:27 85 98 09/18/19 02:22 86 149/77 98 09/18/19 02:17 83 98 09/18/19 02:12 85 98 09/18/19 02:07 81 140/70 98 09/18/19 02:02 88 98 09/18/19 01:57 82 98 09/18/19 01:52 85 151/78 98 09/18/19 01:47 88 98 09/18/19 01:42 84 98 09/18/19 01:37 82 150/81 98 09/18/19 01:32 86 98 09/18/19 01:27 86 98 09/18/19 01:22 84 154/86 98 09/18/19 01:17 83 98 09/18/19 01:12 85 98 09/18/19 01:07 85 154/83 98 09/18/19 01:02 87 98 09/18/19 00:57 85 98 09/18/19 00:52 81 153/81 98 09/18/19 00:47 86 98 09/18/19 00:42 87 98 09/18/19 00:37 83 144/80 98 09/18/19 00:32 82 98 09/18/19 00:27 86 98 09/18/19 00:22 84 141/75 98 09/18/19 00:17 84 98 09/18/19 00:12 82 98 09/18/19 00:07 83 161/78 98 09/18/19 00:02 87 98 09/17/19 23:57 87 98 09/17/19 23:52 85 172/92 98 09/17/19 23:47 83 98 09/17/19 23:42 96 H 97 09/17/19 23:37 84 165/87 98 09/17/19 23:32 82 99 09/17/19 23:27 80 99 09/17/19 23:22 81 145/82 99 09/17/19 23:17 83 98 09/17/19 23:12 88 99 09/17/19 23:07 84 151/83 99 09/17/19 23:02 84 99 09/17/19 22:57 81 99 09/17/19 22:52 80 136/74 99 09/17/19 22:47 84 99 09/17/19 22:42 75 99 09/17/19 22:37 78 153/92 99 09/17/19 22:32 88 99 09/17/19 22:27 77 99 09/17/19 22:22 79 147/85 99 09/17/19 22:17 84 99 09/17/19 22:12 83 98 09/17/19 22:07 80 153/86 99 09/17/19 22:05 75 167/94 09/17/19 22:04 80 153/86 09/17/19 22:02 77 99 09/17/19 21:57 83 99 09/17/19 21:52 82 99 09/17/19 21:48 76 136/79 09/17/19 21:47 81 99 09/17/19 21:43 83 137/78 09/17/19 21:42 84 98 09/17/19 21:38 85 137/80 09/17/19 21:37 91 H 99 09/17/19 21:33 80 146/84 09/17/19 21:32 84 99 09/17/19 21:28 93 H 149/93 09/17/19 21:27 78 99 09/17/19 21:23 81 140/85 09/17/19 21:22 87 99 09/17/19 21:17 82 99 09/17/19 21:12 83 99 09/17/19 21:07 82 100 09/17/19 21:03 68 148/86 09/17/19 21:02 62 99 09/17/19 21:01 64 18 09/17/19 20:57 61 100 09/17/19 20:52 54 L 99 09/17/19 20:48 75 148/84 09/17/19 20:47 68 99 09/17/19 20:42 70 99 09/17/19 20:37 71 99 09/17/19 20:33 72 145/82 09/17/19 20:32 70 99 09/17/19 19:15 97.7 F 70 13 139/91 99 09/17/19 19:00 70 14 136/87 99 09/17/19 18:45 73 11 L 131/83 98 09/17/19 18:30 64 12 125/78 99 09/17/19 18:25 60 12 145/76 99 09/17/19 18:20 66 12 144/74 99 09/17/19 18:15 97.6 F 64 12 134/72 99 09/17/19 16:35 97 H 182/87 09/17/19 16:14 100 H 195/89 09/17/19 16:13 104 H 187/103 09/17/19 15:55 117 H 233/112 09/17/19 15:34 93 H 159/69 09/17/19 15:30 100 H 164/78 09/17/19 15:14 94 H 180/102 09/17/19 14:34 83 180/96 09/17/19 14:15 87 176/96 09/17/19 13:55 71 186/109 Intake and Output 09/17/19 09/18/19 09/18/19 23:59 07:59 15:59 Intake Total 600 Output Total 760 1850 1050 Balance -160 -1850 -1050 Intake: IV 600 Output: Urine 760 1850 1050 Indwelling Catheter 600 1850 1050 Uretheral (Luna) 30 Other: Total, Output Amount 600 100 625 Estimated Blood Loss 500 - Exam Breasts: Present: normal Cardiovascular: Present: Regular rate, Normal S1 Lungs: Present: Clear to auscultation, Normal air movement Abdomen: Present: normal appearance, soft, normal bowel sounds. Absent: distention, tenderness, guarding Vulva: both: normal Uterus: Present: normal, firm, fundal height below umbilicus. Absent: bogginess, tenderness Extremities: Present: normal Deep Tendon Reflex Grade: Normal +2 Incision: Present: normal, dry, dressed - Labs Labs: Abnormal lab results 09/17/19 09/17/19 09/18/19 Range/Units 11:45 23:27 05:43 Creatinine 0.5 L (0.7-1.2) mg/dL Magnesium 4.00 H 5.10 H (1.7-2.3) mg/dL Lactate Dehydrogenase 186 H (91-180) units/L 09/18/19 Range/Units 12:30 Creatinine (0.7-1.2) mg/dL Magnesium 5.50 H (1.7-2.3) mg/dL Lactate Dehydrogenase (91-180) units/L
[2019-09-18] MEDS ORDERED: MEASLES, MUMPS & RUBELLA 12,500 UNIT/0.5 ML VACCINE SUB-Q ONE (18:02)
[2019-09-18] MEDS: MAGNESIUM SULFATE 40GM/1000ML 40 GM/1,000 ML BAG IV SCH (18:15)
--- NOTE | 2019-09-19 07:59 | Progress Note ---
Assessment and Plan - Patient Problems (1) Previous delivery, delivered Current Visit: Yes Status: Acute Plan to address problem: Discharge patient home Subjective - Subjective Date of service: 09/19/19 Principal diagnosis: s/p repeat csec, cHTN Interval history: The patient is currently without any significant complaints. She reports that she desires to be discharged secondary to the father the baby also being hospitalized. She is tolerating regular diet and her pain is well controlled. Patient reports: appetite normal, voiding normally, pain well controlled [place]: doing well Objective - Vital Signs Latest vital signs: Vital Signs Temp Pulse Resp BP BP Pulse Ox 09/19/19 04:45 72 09/19/19 04:19 98.5 F 18 147/85 09/19/19 00:24 98.7 F 81 18 134/70 96 09/18/19 23:58 80 113/55 09/18/19 23:56 97.4 F L 78 18 121/58 100 09/18/19 23:55 81 99 09/18/19 23:50 82 99 09/18/19 23:45 85 99 09/18/19 23:43 69 121/58 09/18/19 23:40 80 99 09/18/19 23:35 78 98 09/18/19 23:30 74 98 09/18/19 23:28 73 122/57 09/18/19 23:25 75 98 09/18/19 23:20 76 99 09/18/19 23:15 77 99 09/18/19 23:12 75 121/61 09/18/19 23:10 78 99 09/18/19 23:05 78 99 09/18/19 23:00 84 100 09/18/19 22:58 76 120/57 09/18/19 22:55 77 99 09/18/19 22:50 80 99 09/18/19 22:45 82 98 09/18/19 22:43 82 129/68 09/18/19 22:40 88 99 09/18/19 22:35 81 100 09/18/19 22:30 81 98 09/18/19 22:28 78 144/78 09/18/19 22:25 84 99 09/18/19 22:20 75 100 09/18/19 22:15 84 99 09/18/19 22:13 84 144/77 09/18/19 22:10 83 18 99 20 22:07 92 H 142/70 20 22:05 84 99 04 22:00 83 99 20 21:59 97.8 F 86 18 142/70 100 0420 21:58 75 142/70 0420 21:55 83 99 0420 21:50 88 135/66 99 0420 21:45 83 100 09/18/19 21:40 87 99 09/18/19 21:35 87 99 20 21:30 86 98 20 21:25 93 H 98 20 21:20 94 H 99 09/18/19 21:15 95 H 100 09/18/19 21:10 90 99 09/18/19 21:05 88 99 09/18/19 21:00 87 99 04 20:57 87 147/72 04 20:55 92 H 99 09/18/19 20:53 98.3 F 85 18 147/72 99 09/18/19 20:50 83 141/82 99 09/18/19 20:45 92 H 99 09/18/19 20:40 86 99 09/18/19 20:35 91 H 99 09/18/19 20:30 84 99 09/18/19 20:25 86 99 20 20:20 88 99 20 20:15 86 99 20 20:10 86 99 20 20:05 82 99 20 20:00 89 98 20 19:55 91 H 99 20 19:50 93 H 141/78 100 20 19:45 95 H 99 0420 19:40 92 H 99 0420 19:35 88 98 0420 19:30 90 98 0420 19:26 91 H 145/77 0420 19:25 90 99 0420 19:20 93 H 98 0420 19:15 91 H 99 0420 19:12 98.0 F 94 H 18 145/77 99 0420 19:10 100 H 98 04/14/20 19:05 90 99 04/14/20 19:00 95 H 99 09/18/19 18:55 92 H 99 09/18/19 18:51 98 F 09/18/19 18:50 91 H 139/82 99 09/18/19 18:45 87 100 09/18/19 18:40 92 H 99 09/18/19 18:35 89 100 09/18/19 18:30 98 H 100 09/18/19 18:25 82 99 09/18/19 18:20 82 99 09/18/19 18:15 86 100 09/18/19 18:10 83 99 09/18/19 18:05 79 99 09/18/19 18:00 79 99 09/18/19 17:55 82 99 09/18/19 17:50 86 140/80 99 09/18/19 17:45 96 H 100 09/18/19 17:40 89 100 09/18/19 17:35 83 99 09/18/19 17:30 84 99 09/18/19 17:25 79 99 09/18/19 17:20 78 100 09/18/19 17:15 80 99 09/18/19 17:10 92 H 99 09/18/19 17:05 74 99 09/18/19 17:00 76 99 09/18/19 16:55 72 99 09/18/19 16:50 75 152/78 98 09/18/19 16:45 75 99 09/18/19 16:40 80 99 09/18/19 16:35 73 99 09/18/19 16:30 77 99 09/18/19 16:25 77 99 09/18/19 16:20 75 99 09/18/19 16:15 73 99 09/18/19 16:10 80 99 09/18/19 16:05 74 99 09/18/19 16:00 73 98 09/18/19 15:55 76 98 09/18/19 15:50 76 138/82 100 09/18/19 15:45 72 100 09/18/19 15:40 74 98 20 15:35 71 98 09/18/19 15:30 72 98 20 15:25 76 98 09/18/19 15:20 69 99 09/18/19 15:15 81 99 09/18/19 15:10 73 99 09/18/19 15:05 78 99 09/18/19 15:00 75 99 09/18/19 14:55 72 99 09/18/19 14:50 73 141/85 99 09/18/19 14:45 72 99 09/18/19 14:40 72 99 09/18/19 14:35 74 99 09/18/19 14:30 73 99 09/18/19 14:25 78 98 09/18/19 14:20 73 98 09/18/19 14:15 74 99 09/18/19 14:11 79 77 L 09/18/19 14:10 76 99 09/18/19 14:05 76 99 09/18/19 14:00 77 99 09/18/19 13:59 98 F 18 09/18/19 13:55 75 99 09/18/19 13:50 73 148/81 98 09/18/19 13:45 77 100 09/18/19 13:40 74 100 09/18/19 13:35 75 100 09/18/19 13:30 79 100 09/18/19 13:29 82 84 09/18/19 13:25 77 100 09/18/19 13:20 79 100 09/18/19 13:15 77 100 09/18/19 13:10 74 100 09/18/19 13:05 73 100 09/18/19 13:00 78 100 09/18/19 12:55 78 99 09/18/19 12:50 75 99 09/18/19 12:49 67 138/78 09/18/19 12:45 76 99 09/18/19 12:40 82 99 09/18/19 12:35 78 99 09/18/19 11:53 83 98 09/18/19 11:48 97 H 98 09/18/19 11:43 81 98 09/18/19 11:38 82 98 09/18/19 11:33 82 98 09/18/19 11:28 83 99 09/18/19 11:24 16 09/18/19 11:23 74 99 09/18/19 11:18 81 99 09/18/19 11:14 78 125/75 09/18/19 10:32 91 H 99 09/18/19 10:27 86 151/72 99 09/18/19 10:22 83 99 09/18/19 10:17 83 99 09/18/19 10:12 87 99 09/18/19 10:07 89 151/72 100 09/18/19 10:02 82 100 09/18/19 09:57 82 100 09/18/19 09:52 78 100 09/18/19 09:47 84 99 09/18/19 09:42 85 99 09/18/19 09:37 81 150/68 99 09/18/19 09:32 89 99 09/18/19 09:27 86 99 09/18/19 09:22 83 99 09/18/19 09:17 81 98 09/18/19 09:12 80 98 09/18/19 09:07 78 148/78 99 09/18/19 09:02 81 98 09/18/19 08:57 82 98 09/18/19 08:52 81 98 09/18/19 08:47 79 99 09/18/19 08:42 82 98 09/18/19 08:38 79 158/84 09/18/19 08:37 77 99 09/18/19 08:32 77 99 09/18/19 08:27 81 99 09/18/19 08:22 79 98 09/18/19 08:17 94 H 99 09/18/19 08:12 84 99 09/18/19 08:08 83 159/79 09/18/19 08:07 85 98 09/18/19 08:02 82 97 Intake and Output 09/18/19 09/19/19 09/19/19 22:59 06:59 14:59 Intake Total 1192.5 Output Total 1525 800 Balance -332.5 -800 Intake: IV 1192.5 MAGNESIUM SULFATE 40GM/ 1192.5 1000ML 40 gm In 1,000 ml @ 2 GM/HR 50 mls/hr IV DIRECT [facility] Rx#:[id number] Output: Urine 1525 800 Indwelling Catheter 1525 Void 800 Other: Total, Output Amount 300 800 # Voids Void 1 - Exam Abdomen: Present: normal appearance, soft - Labs Labs: Abnormal lab results 09/18/19 09/18/19 09/18/19 Range/Units 12:30 16:24 20:02 Magnesium 5.50 H 5.50 H 5.30 H (1.7-2.3) mg/dL
--- NOTE | 2019-09-19 08:01 | Discharge Summary ---
Providers - Providers Date of Admission: 09/17/19 11:15 Date of discharge: 09/19/19 Attending physician: MAGDA TURPIN MD Primary care physician: MAGDA TURPIN MD Hospitalization Reason for admission: section Delivery: Procedure: repeat low transverse Discharge diagnosis: other (Preeclampsia) Hospital course: The patient was admitted for scheduled repeat delivery secondary to preeclampsia. The patient received magnesium postoperatively. Her postoperative course was uneventful. Condition at discharge: Good Disposition: DC-01 TO HOME OR SELFCARE - Discharge Diagnoses (1) Previous delivery, delivered Status: Acute Plan - Discharge Medications Prescriptions: labetaloL [Labetalol 200mg TAB] 400 mg PO BID #60 tablet Ibuprofen [Motrin] 800 mg PO Q8HR PRN #60 tablet PRN Reason: Pain, Mild (1-3) oxyCODONE /ACETAMINOPHEN [Percocet 5/325] 1 tab PO Q6HR PRN #30 tablet PRN Reason: Pain - Provider Discharge Summary Activity: no sex for 6 weeks, no heavy lifting 4 weeks, no strenuous exercise Diet: routine Instructions: routine Additional instructions: [] Smoking cessation referral if applicable(refer to patient education folder for contact #) [] Refer to [facility] Booklet Call your doctor immediately for: * Fever > 100.5 * Heavy vaginal bleeding ( >1 pad per hour) * Severe persistent headache * Shortness of breath * Reddened, hot, painful area to leg or breast * Drainage or odor from incision. * Keep incision clean and dry at all times and follow doctor's instructions regarding bathing/showering Schedule follow-up in 2 weeks - Follow up plan
[2019-09-19] MEDS: FERROUS SULFATE 325 MG TAB PO SCH (08:33)
[2019-09-19 10:16] VITALS: BP 159/82
== END 2019-09-19 11:00 | disposition home or self-care (01) | DRG 766 ==
LOC: APU 11:15 → LD 14:47 → OB 09-19 00:34
PROVIDERS: ADMIT Obstetrics & Gynecology; ATTEND Obstetrics & Gynecology
PROC: 10D00Z1 Extraction of Products of Conception, Low, Open Approach (ICD-10-PCS; principal; 2019-09-17)
PROC: 3E0234Z Introduction of Serum, Toxoid and Vaccine into Muscle, Percutaneous Approach (ICD-10-PCS; 2019-09-18)
PROC: 3E0134Z Introduction of Serum, Toxoid and Vaccine into Subcutaneous Tissue, Percutaneous Approach (ICD-10-PCS; 2019-09-18)
DX: O11.4 Pre-existing hypertension with pre-eclampsia, complicating childbirth (principal); O34.211 Maternal care for low transverse scar from previous cesarean delivery; O99.214 Obesity complicating childbirth; E66.9 Obesity, unspecified; Z3A.36 36 weeks gestation of pregnancy; Z37.0 Single live birth; Z23 Encounter for immunization
CPT/HCPCS: 36415; 71046; 81001; 82565; 83615; 83735; 84450; 84460; 84550; 85014; 85018; 85025; 86850; 86900; 86901; 88307; 90707; 94640; G0378; C1765; J0360; J0690; J1100; J1885; J2270; J2590; J2765; J3475; J3490; J7040; J7120; J7121

== ENCOUNTER 2020-10-11 04:57 | Emergency (ER) | payer MEDICAID ==
--- NOTE | 2020-10-11 06:47 | Emergency Department Report ---
ED Neuro Deficit HPI - General Chief Complaint: High BP Stated Complaint: NUMBNESS Time Seen by Provider: 10/11/20 06:35 Source: patient, EMS Mode of arrival: Stretcher Limitations: No Limitations - History of Present Illness Initial Comments: CC: "My whole body feels numb." HPI: This is a 29 yo female with hx of HTN and asthma who presents with whole body numbness which began this evening while watching TV. She denies paralysis or difficulty walking. She was whole body numbness head to toe. She arrived via EMS. She last took labetalol one year ago because she was "being hard- headed". She smokes tobacco. She denies recreational drug use. She has been 9 times. She has 10 children, one set of twins. Her last vaginal delivery occurred September 2019. She is not currently . -: Sudden, This evening Location: other (entire body numbness) History of same: No Severity: mild Quality: numb Improves With: none Worsens With: none On Anticoagulants: No Context: sudden onset Associated Symptoms: denies other symptoms Treatments Prior to Arrival: none - Related Data Home Medications: Home Medications Medication Instructions Recorded Confirmed Last Taken labetaloL [Labetalol 200mg TAB] 400 mg PO QDAY 08/16/19 09/17/19 09/17/19 Albuterol INH(or & Nicu Only) 1 - 2 inhalation INHALATION Q4H PRN 09/17/19 09/17/19 2 Weeks Ago ~09/03/19 Aspirin [Aspirin BABY CHEW TAB] 81 mg PO DAILY 09/17/19 09/17/19 09/16/19 Vitamin 1 tab PO DAILY 09/17/19 09/17/19 09/17/19 Previous Rx's Medication Instructions Recorded Last Taken Type Ibuprofen [Motrin] 800 mg PO Q8HR PRN #60 tablet 09/19/19 Unknown Rx labetaloL [Labetalol 200mg TAB] 400 mg PO BID #60 tablet 09/19/19 Unknown Rx oxyCODONE /ACETAMINOPHEN [Percocet 1 tab PO Q6HR PRN #30 tablet 09/19/19 Unknown Rx 5/325] Valsartan 80 mg PO DAILY #90 tablet 10/11/20 Unknown Rx amLODIPine 5 mg PO DAILY #90 tab 10/11/20 Unknown Rx Allergies/Adverse Reactions: Allergies Allergy/AdvReac Type Severity Reaction Status Date / Time No Known Allergies Allergy Verified 09/17/19 11:26 ED Review of Systems ROS: Stated complaint: NUMBNESS Other details as noted in HPI Comment: All other systems reviewed and negative Constitutional: denies: fever, malaise Respiratory: denies: cough, shortness of breath Cardiovascular: denies: chest pain Gastrointestinal: denies: abdominal pain, nausea, vomiting, diarrhea Neurological: numbness. denies: headache, weakness, paresthesias, confusion, abnormal gait, vertigo ED Past Medical Hx - Past Medical History Previous Medical History?: Yes Hx Hypertension: Yes Hx Heart Attack/AMI: No Hx Congestive Heart Failure: No Hx Diabetes: No Hx Deep Vein Thrombosis: No Hx Liver Disease: No Hx Renal Disease: No Hx Sickle Cell Disease: No Hx Seizures: No Hx Asthma: Yes Hx COPD: No Hx HIV: No Additional medical history: bronchitis, Vaginal delivery x 6 - Surgical History Past Surgical History?: Yes Hx Pacemaker: No Hx Internal Defibrillator: No Additional Surgical History: x 2 - Social History Smoking Status: Never Smoker Substance Use Type: None - Medications Home Medications: Home Medications Medication Instructions Recorded Confirmed Last Taken Type labetaloL [Labetalol 200mg TAB] 400 mg PO QDAY 08/16/19 09/17/19 09/17/19 History Albuterol INH(or & Nicu Only) 1 - 2 inhalation INHALATION Q4H PRN 09/17/19 09/17/19 2 Weeks Ago History ~09/03/19 Aspirin [Aspirin BABY CHEW TAB] 81 mg PO DAILY 09/17/19 09/17/19 09/16/19 History Vitamin 1 tab PO DAILY 09/17/19 09/17/19 09/17/19 History Ibuprofen [Motrin] 800 mg PO Q8HR PRN #60 tablet 09/19/19 Unknown Rx labetaloL [Labetalol 200mg TAB] 400 mg PO BID #60 tablet 09/19/19 Unknown Rx oxyCODONE /ACETAMINOPHEN [Percocet 1 tab PO Q6HR PRN #30 tablet 09/19/19 Unknown Rx 5/325] Valsartan 80 mg PO DAILY #90 tablet 10/11/20 Unknown Rx amLODIPine 5 mg PO DAILY #90 tab 10/11/20 Unknown Rx ED Neuro Physical Exam - General Limitations: No Limitations General appearance: alert, in no apparent distress Suspected Stroke: No - Head Head exam: Present: atraumatic, normocephalic - Eye Eye exam: Present: normal appearance - ENT ENT exam: Present: mucous membranes moist - Neck Neck exam: Present: normal inspection, full ROM - Respiratory Respiratory exam: Present: normal lung sounds bilaterally. Absent: respiratory distress, wheezes, rales, rhonchi - Cardiovascular Cardiovascular Exam: Present: regular rate, normal rhythm, normal heart sounds. Absent: systolic murmur, diastolic murmur, rubs, gallop - GI/Abdominal GI/Abdominal exam: Present: soft, normal bowel sounds. Absent: distended, tenderness, guarding, rebound - Extremities Exam Extremities exam: Present: normal inspection - Back Exam Back exam: Present: normal inspection - Neurological Exam Neurological exam: Present: alert, oriented X3, CN II-XII intact, normal gait - NIHSS Assessment Interval: Baseline 1a. Level of Consciousness: alert/keenly responsive 1b. LOC Questions: answers both correctly 1c. LOC Commands: performs tasks correctly 2. Best Gaze: normal 3. Visual: no visual loss 4. Facial Palsy: normal symmetrical movement 5b. Motor Arm Right: no drift 5a. Motor Arm Left: no drift 6a. Motor Leg Left: no drift 6b. Motor Leg Right: no drift 7. Limb Ataxia: absent 8. Sensory: normal 9. Best Language: no aphasia 10. Dysarthria: normal 11. Extinction/Inattention: no abnormality Total Score: 0 Stroke Severity: No Stroke Symptoms - Psychiatric Psychiatric exam: Present: normal affect, normal mood - Skin Skin exam: Present: warm, dry, intact, normal color. Absent: rash ED Course Vital Signs 10/11/20 10/11/20 10/11/20 05:03 05:10 05:15 Pulse Rate 109 H Respiratory 18 14 Rate Blood Pressure 239/146 220/142 O2 Sat by Pulse 100 Oximetry 10/11/20 10/11/20 10/11/20 05:57 06:00 06:15 Pulse Rate 112 H 104 H 113 H Respiratory 13 12 Rate Blood Pressure 220/142 240/150 240/150 O2 Sat by Pulse 99 100 Oximetry 10/11/20 10/11/20 10/11/20 06:31 06:59 07:00 Pulse Rate 110 H 110 H 114 H Respiratory 12 18 12 Rate Blood Pressure 240/150 240/150 238/155 O2 Sat by Pulse 100 Oximetry 10/11/20 10/11/20 10/11/20 07:15 07:31 08:00 Pulse Rate 92 H 97 H 89 Respiratory 12 12 14 Rate Blood Pressure 238/155 197/114 196/121 O2 Sat by Pulse Oximetry 10/11/20 10/11/20 10/11/20 08:15 08:31 08:45 Pulse Rate 92 H 98 H 96 H Respiratory 15 14 Rate Blood Pressure 196/121 195/111 220/123 O2 Sat by Pulse Oximetry 10/11/20 10/11/20 10/11/20 09:00 09:30 10:00 Pulse Rate 94 H 88 79 Respiratory 11 L 15 15 Rate Blood Pressure 214/122 184/103 175/102 O2 Sat by Pulse Oximetry 10/11/20 10:30 Pulse Rate 98 H Respiratory 12 Rate Blood Pressure 166/106 O2 Sat by Pulse Oximetry - Lab Data Result diagrams: 10/11/20 08:10 10/11/20 08:10 Lab Results 10/11/20 10/11/20 10/11/20 Range/Units 08:10 08:10 08:10 WBC 8.8 (4.5-11.0) K/mm3 RBC 4.83 (3.65-5.03) M/mm3 Hgb 13.6 (10.1-14.3) gm/dl Hct 41.0 (30.3-42.9) % MCV 85 (79-97) fl MCH 28 (28-32) pg MCHC 33 (30-34) % RDW 13.4 (13.2-15.2) % Plt Count 362 (140-440) K/mm3 Sodium 139 (137-145) mmol/L Potassium 3.4 L (3.6-5.0) mmol/L Chloride 101.8 (98-107) mmol/L Carbon Dioxide 23 (22-30) mmol/L Anion Gap 18 mmol/L BUN 9 (7-17) mg/dL Creatinine 0.8 (0.6-1.2) mg/dL Estimated GFR > 60 ml/min BUN/Creatinine Ratio 11 % Glucose 115 H (65-100) mg/dL Calcium 8.8 (8.4-10.2) mg/dL Total Bilirubin 0.30 (0.1-1.2) mg/dL AST 12 (5-40) units/L ALT 10 (7-56) units/L Alkaline Phosphatase 87 (35-129) units/L Troponin T (0.00-0.029) ng/mL NT-Pro-B Natriuret Pep (0-450) pg/mL Total Protein 7.4 (6.3-8.2) g/dL Albumin 3.9 (3.9-5) g/dL Albumin/Globulin Ratio 1.1 % TSH (0.270-4.200) mlU/mL HCG, Qual Negative (Negative) Urine Color (Yellow) Urine Turbidity (Clear) Urine pH (5.0-7.0) Ur Specific [place] (1.003-1.030) Urine Protein (Negative) mg/dL Urine Glucose (UA) (Negative) mg/dL Urine Ketones (Negative) mg/dL Urine Blood (Negative) Urine Nitrite (Negative) Urine Bilirubin (Negative) Urine Urobilinogen (<2.0) mg/dL Ur Leukocyte Esterase (Negative) Urine WBC (Auto) (0.0-6.0) /HPF Urine RBC (Auto) (0.0-6.0) /HPF U Epithel Cells (Auto) (0-13.0) /HPF Urine Mucus /HPF Urine Opiates Screen Urine Methadone Screen Ur Barbiturates Screen Ur Phencyclidine Scrn Ur Amphetamines Screen U Benzodiazepines Scrn Urine Cocaine Screen U Marijuana (THC) Screen Drugs of Abuse Note 10/11/20 10/11/20 10/11/20 Range/Units 08:55 08:55 09:09 WBC (4.5-11.0) K/mm3 RBC (3.65-5.03) M/mm3 Hgb (10.1-14.3) gm/dl Hct (30.3-42.9) % MCV (79-97) fl MCH (28-32) pg MCHC (30-34) % RDW (13.2-15.2) % Plt Count (140-440) K/mm3 Sodium (137-145) mmol/L Potassium (3.6-5.0) mmol/L Chloride (98-107) mmol/L Carbon Dioxide (22-30) mmol/L Anion Gap mmol/L BUN (7-17) mg/dL Creatinine (0.6-1.2) mg/dL Estimated GFR ml/min BUN/Creatinine Ratio % Glucose (65-100) mg/dL Calcium (8.4-10.2) mg/dL Total Bilirubin (0.1-1.2) mg/dL AST (5-40) units/L ALT (7-56) units/L Alkaline Phosphatase (35-129) units/L Troponin T (0.00-0.029) ng/mL NT-Pro-B Natriuret Pep (0-450) pg/mL Total Protein (6.3-8.2) g/dL Albumin (3.9-5) g/dL Albumin/Globulin Ratio % TSH 0.378 (0.270-4.200) mlU/mL HCG, Qual (Negative) Urine Color Yellow (Yellow) Urine Turbidity Slightly-cloudy (Clear) Urine pH 7.0 (5.0-7.0) Ur Specific [place] 1.008 (1.003-1.030) Urine Protein 30 mg/dl (Negative) mg/dL Urine Glucose (UA) 50 (Negative) mg/dL Urine Ketones Neg (Negative) mg/dL Urine Blood Mod (Negative) Urine Nitrite Neg (Negative) Urine Bilirubin Neg (Negative) Urine Urobilinogen < 2.0 (<2.0) mg/dL Ur Leukocyte Esterase Neg (Negative) Urine WBC (Auto) 2.0 (0.0-6.0) /HPF Urine RBC (Auto) 1.0 (0.0-6.0) /HPF U Epithel Cells (Auto) 7.0 (0-13.0) /HPF Urine Mucus Few /HPF Urine Opiates Screen Negative Urine Methadone Screen Negative Ur Barbiturates Screen Negative Ur Phencyclidine Scrn Negative Ur Amphetamines Screen Negative U Benzodiazepines Scrn Negative Urine Cocaine Screen Positive U Marijuana (THC) Screen Negative Drugs of Abuse Note Disclamer 10/11/20 Range/Units 09:09 WBC (4.5-11.0) K/mm3 RBC (3.65-5.03) M/mm3 Hgb (10.1-14.3) gm/dl Hct (30.3-42.9) % MCV (79-97) fl MCH (28-32) pg MCHC (30-34) % RDW (13.2-15.2) % Plt Count (140-440) K/mm3 Sodium (137-145) mmol/L Potassium (3.6-5.0) mmol/L Chloride (98-107) mmol/L Carbon Dioxide (22-30) mmol/L Anion Gap mmol/L BUN (7-17) mg/dL Creatinine (0.6-1.2) mg/dL Estimated GFR ml/min BUN/Creatinine Ratio % Glucose (65-100) mg/dL Calcium (8.4-10.2) mg/dL Total Bilirubin (0.1-1.2) mg/dL AST (5-40) units/L ALT (7-56) units/L Alkaline Phosphatase (35-129) units/L Troponin T < 0.010 (0.00-0.029) ng/mL NT-Pro-B Natriuret Pep 265.2 (0-450) pg/mL Total Protein (6.3-8.2) g/dL Albumin (3.9-5) g/dL Albumin/Globulin Ratio % TSH (0.270-4.200) mlU/mL HCG, Qual (Negative) Urine Color (Yellow) Urine Turbidity (Clear) Urine pH (5.0-7.0) Ur Specific [place] (1.003-1.030) Urine Protein (Negative) mg/dL Urine Glucose (UA) (Negative) mg/dL Urine Ketones (Negative) mg/dL Urine Blood (Negative) Urine Nitrite (Negative) Urine Bilirubin (Negative) Urine Urobilinogen (<2.0) mg/dL Ur Leukocyte Esterase (Negative) Urine WBC (Auto) (0.0-6.0) /HPF Urine RBC (Auto) (0.0-6.0) /HPF U Epithel Cells (Auto) (0-13.0) /HPF Urine Mucus /HPF Urine Opiates Screen Urine Methadone Screen Ur Barbiturates Screen Ur Phencyclidine Scrn Ur Amphetamines Screen U Benzodiazepines Scrn Urine Cocaine Screen U Marijuana (THC) Screen Drugs of Abuse Note - EKG Data -: EKG Interpreted by Me EKG shows normal: sinus rhythm Rate: tachycardia Interpretation: LVH 10/11/20 08:41 EKG obtained 0610 Sinus tachycardia rate 110 bpm left axis deviation prolonged QTC ST elevation large P waves in the inferior leads - Radiology Data Radiology results: report reviewed Chest radiograph no acute findings - Medical Decision Making hypertensive emergency due to cocaine intoxication and medication noncompliance. Patient presented with nonspecific complaints including diffuse body numbness. She did not have any focal neurological findings on exam. She did not have any neurological deficits. During ED observation, patient requested medication for anxiety. She felt anxious. Her presentation match that of a sympathomimetic toxidrome including tachycardia hypertension anxiety. UDS positive for cocaine. Patient vehemently denied cocaine use. Patient required several doses of IV labetalol to normalize her blood pressure. After 40 mg of IV labetalol repeat blood pressure 166/79 I have given patient extensive education regarding the risk of severe organ damage if she does not comply with medication. She states that her father has kidney failure requiring hemodialysis. Patient prescribed labetalol. I have given her referral to outpatient medicine physician. CBC chemistry troponin urinalysis all unremarkable. BMP troponin within normal limits. Chest radiograph without acute findings. Patient symptoms have resolved completely. Vital Signs - 24 hr 10/11/20 10/11/20 10/11/20 05:03 05:10 05:15 Pulse Rate 109 H Respiratory 18 14 Rate Blood Pressure 239/146 220/142 O2 Sat by Pulse 100 Oximetry 10/11/20 10/11/20 10/11/20 05:57 06:00 06:15 Pulse Rate 112 H 104 H 113 H Respiratory 13 12 Rate Blood Pressure 220/142 240/150 240/150 O2 Sat by Pulse 99 100 Oximetry 10/11/20 10/11/20 10/11/20 06:31 06:59 07:00 Pulse Rate 110 H 110 H 114 H Respiratory 12 18 12 Rate Blood Pressure 240/150 240/150 238/155 O2 Sat by Pulse 100 Oximetry 10/11/20 10/11/20 10/11/20 07:15 07:31 08:00 Pulse Rate 92 H 97 H 89 Respiratory 12 12 14 Rate Blood Pressure 238/155 197/114 196/121 O2 Sat by Pulse Oximetry 10/11/20 10/11/20 10/11/20 08:15 08:31 08:45 Pulse Rate 92 H 98 H 96 H Respiratory 15 14 Rate Blood Pressure 196/121 195/111 220/123 O2 Sat by Pulse Oximetry 10/11/20 10/11/20 10/11/20 09:00 09:30 10:00 Pulse Rate 94 H 88 79 Respiratory 11 L 15 15 Rate Blood Pressure 214/122 184/103 175/102 O2 Sat by Pulse Oximetry 10/11/20 10:30 Pulse Rate 98 H Respiratory 12 Rate Blood Pressure 166/106 O2 Sat by Pulse Oximetry Critical Care Time: Yes Critical care time in (mins) excluding proc time.: 40 Critical care attestation.: If time is entered above; I have spent that time in minutes in the direct care of this critically ill patient, excluding procedure time. 40 minutes of critical care time excluding procedures were used in the care of the patient. I came immediately to the bedside upon patient's arrival to treatment room. . I discussed treatment plan with the nursing team members. I reviewed electronic record. Patient required multiple interventions and reassessments. ED Disposition Clinical Impression: Hypertensive emergency, Cocaine abuse Disposition: DC-01 TO HOME OR SELFCARE Is pt being admited?: No Does the pt Need Aspirin: No Condition: Stable Instructions: Hypertension (ED), Hypertension, Adult, [id number], Managing Your Hypertension Prescriptions: amLODIPine 5 mg PO DAILY #90 tab Valsartan 80 mg PO DAILY #90 tablet Referrals: FARNAZ MERLOSINDIAN VALLEYRHINECLIFF MD KARISHMA [Primary Care Provider] - 3-5 Days AMILCAR MERIDA MD [Staff Physician] - 3-5 Days
[2020-10-11 08:31] LABS: Hemoglobin 13.6 gm/dl (10.1-14.3); Mean Corpuscular HGB Conc 33 % (30-34); Mean Corpuscular Volume 85 fl (79-97); Platelet Count 362 K/mm3 (140-440); Red Blood Count 4.83 M/mm3 (3.65-5.03); Red Cell Distribution Width 13.4 % (13.2-15.2)
[2020-10-11 08:53] LABS: Alanine Aminotransferase 10 units/L (7-56); Albumin 3.9 g/dL (3.9-5); BUN/Creatinine Ratio 11; Blood Urea Nitrogen 9 mg/dL (7-17); Calcium 8.8 mg/dL (8.4-10.2); Hemolysis Index 2
--- NOTE | 2020-10-11 09:13 | XRay Report ---
CHEST 1 VIEW 10/11/2020 8:46 AM INDICATION / CLINICAL INFORMATION: hypertensive emergency, numbness. COMPARISON: 09/17/2019 FINDINGS: SUPPORT DEVICES: None. HEART / MEDIASTINUM: No significant abnormality. LUNGS / PLEURA: No significant pulmonary or pleural abnormality. No pneumothorax. ADDITIONAL FINDINGS: No significant additional findings. IMPRESSION: 1. No acute findings. Signer Name: Gerardo Granado MD Signed: 10/11/2020 9:09 AM Workstation Name: [id number]
[2020-10-11 09:21] LABS: Bilirubin,Urine NEG (Negative); Blood,Urine MOD (Negative); Color,Urine Yellow (Yellow); Mucus,Urine FEW /HPF; Urobilinogen,Urine < 2.0 mg/dL (<2.0)
[2020-10-11 09:29] LABS: Amphetamine Screen,Urine Negative; Benzodiazepines Screen,Urine Negative; Cannabinoid Screen,Urine Negative; Methadone Screen,Urine Negative; Opiate Screen,Urine Negative
[2020-10-11 10:29] LABS: Cocaine Screen,Urine Positive
[2020-10-11 11:21] VITALS: BP 166/100
--- NOTE | 2020-10-13 11:11 | Electrocardiograph Report ---
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
== END 2020-10-11 11:29 | disposition home or self-care (01) ==
LOC: ED 04:57
DX: I10 Essential (primary) hypertension (principal); F14.10 Cocaine abuse, uncomplicated; J45.909 Unspecified asthma, uncomplicated; Z98.890 Other specified postprocedural states; Z79.1 Long term (current) use of non-steroidal anti-inflammatories (NSAID); Z79.899 Other long term (current) drug therapy
CPT/HCPCS: 36415; 71045; 80053; 80307; 81001; 83880; 84443; 84484; 84703; 85027; 93005; 96374; 96376

== ENCOUNTER 2020-10-13 21:07 | Emergency (ER) | payer MEDICAID ==
--- NOTE | 2020-10-13 23:09 | Event Note ---
ED Screening Note ED Screening Note: Cp that began two days ago described as a pressure no radiation of the pain states she began taking two blood pressure medications two days ago states prior to then she had been off BP medication for 1 1/2 years no n/v/d no fever no cough no leg swelling This initial assessment/diagnostic orders/clinical plan/treatment(s) is/are subject to change based on patients health status, clinical progression and re- assessment by fellow clinical providers in the ED. Further treatment and workup at subsequent clinical providers discretion. Patient/guardian urged not to elope from the ED as their condition may be serious if not clinically assessed and managed. Initial orders include: ekg, labs, UA, CXR
[2020-10-13 23:33] LABS: Bilirubin,Urine NEG (Negative); Blood,Urine LG (Negative); Color,Urine Amber (Yellow); Urobilinogen,Urine < 2.0 mg/dL (<2.0)
[2020-10-13 23:34] LABS: Amphetamine Screen,Urine PRESUMPTIVE NEGATIVE; Benzodiazepines Screen,Urine PRESUMPTIVE NEGATIVE; Cannabinoid Screen,Urine PRESUMPTIVE NEGATIVE; Cocaine Screen,Urine PRESUMPTIVE POSITIVE; Methadone Screen,Urine PRESUMPTIVE NEGATIVE; Opiate Screen,Urine PRESUMPTIVE NEGATIVE
[2020-10-14 00:24] LABS: Alanine Aminotransferase 12 units/L (7-56); Albumin 4.1 g/dL (3.9-5); Basophils % (Auto) 0.7 % (0.0-1.8); Blood Urea Nitrogen 7 mg/dL (7-17); Calcium 9.1 mg/dL (8.4-10.2); Eosinophils # (Auto) 0.2 K/mm3 (0.0-0.4); Eosinophils % (Auto) 3.2 % (0.0-4.3); Hematocrit 41.6 % (30.3-42.9); Hemoglobin 14.2 gm/dl (10.1-14.3); Hemolysis Index 5; Lymphocytes # (Auto) 2.2 K/mm3 (1.2-5.4); Lymphocytes % (Auto) 32.4 % (13.4-35.0); Mean Corpuscular HGB Conc 34 % (30-34); Mean Corpuscular Volume 86 fl (79-97); Monocytes # (Auto) 0.4 K/mm3 (0.0-0.8); Monocytes % (Auto) 6.4 % (0.0-7.3); Platelet Count 358 K/mm3 (140-440); Red Blood Count 4.82 M/mm3 (3.65-5.03); Red Cell Distribution Width 13.3 % (13.2-15.2)
[2020-10-14 00:27] LABS: BUN/Creatinine Ratio 10
--- NOTE | 2020-10-14 00:54 | XRay Report ---
CHEST 2 VIEWS INDICATION: Chest Pain. COMPARISON: 10/11/2020 FINDINGS: Support devices: None. Heart: Within normal limits. Lungs/Pleura: No acute air space or interstitial disease. No significant pleural effusion. IMPRESSION: No acute findings. Signer Name: Tre Chavez MD Signed: 10/14/2020 12:49 AM Workstation Name: [id number]
[2020-10-14] MEDS ORDERED: cloNIDine 0.2 MG TAB PO ONE (07:50)
--- NOTE | 2020-10-14 07:57 | Emergency Department Report ---
ED Chest Pain HPI - General Chief Complaint: High BP Stated Complaint: MOUTH NUMBNESS/HIGH BP/SHAKES Time Seen by Provider: 10/13/20 23:07 Source: patient Mode of arrival: Ambulatory Limitations: No Limitations - History of Present Illness Initial Comments: 29-year-old female, history of hypertension, presents to ED with chest pain. Patient reports anterior chest pain for the last 2 days. Patient states feels like a muscle ache. Pain is intermittent, worse with certain movements of her torso and movement of her arms. Patient states she thought the pain might be secondary to her having large breasts. She denies any fever, cough, shortness of breath, diaphoresis, nausea or vomiting, leg pain or swelling. Patient was here 2 days ago with complaint of whole body numbness. She was found to be positive for cocaine and hypertensive. Patient was discharged on two BP meds. Patient states she has been taking that medication since her discharge. Patient denies any drug use. Patient states "they told me my urine was positive for cocaine the last time I was here." Patient initially denied using any drugs. Then patient reports that she does smoke marijuana, however drug screen was negative for marijuana. MD Complaint: chest pain -: days(s) (2) Onset: during rest Pain Location: other (Anterior chest) Pain Radiation: none Severity: moderate Severity scale (0 -10): 0 Quality: other (Soreness) Consistency: intermittent Improves With: remaining still Worsens With: palpation, movement re: denies: nausea, vomting, diaphoresis, dyspnea Other Symptoms: denies: cough, fever, leg swelling - Related Data Home Medications Medication Instructions Recorded Confirmed Last Taken labetaloL [Labetalol 200mg TAB] 400 mg PO QDAY 08/16/19 09/17/19 09/17/19 Albuterol INH(or & Nicu Only) 1 - 2 inhalation INHALATION Q4H PRN 09/17/19 09/17/19 2 Weeks Ago ~09/03/19 Aspirin [Aspirin BABY CHEW TAB] 81 mg PO DAILY 09/17/19 09/17/19 09/16/19 Vitamin 1 tab PO DAILY 09/17/19 09/17/19 09/17/19 Previous Rx's Medication Instructions Recorded Last Taken Type Ibuprofen [Motrin] 800 mg PO Q8HR PRN #60 tablet 09/19/19 Unknown Rx labetaloL [Labetalol 200mg TAB] 400 mg PO BID #60 tablet 09/19/19 Unknown Rx oxyCODONE /ACETAMINOPHEN [Percocet 1 tab PO Q6HR PRN #30 tablet 09/19/19 Unknown Rx 5/325] Valsartan 80 mg PO DAILY #90 tablet 10/11/20 Unknown Rx amLODIPine 5 mg PO DAILY #90 tab 10/11/20 Unknown Rx Allergies Allergy/AdvReac Type Severity Reaction Status Date / Time No Known Allergies Allergy Verified 09/17/19 11:26 Heart Score - HEART Score History: Slightly suspicious EKG: Non-specific Age: < 45 Risk factors: > 3 risk factors or hx of atherosclerotic disease Troponin: < normal limit HEART Score: 3 - EKG Read Time Time EKG Completed: 22:54 EKG Read Time: 23:07 ED Review of Systems ROS: Stated complaint: MOUTH NUMBNESS/HIGH BP/SHAKES Other details as noted in HPI Comment: All other systems reviewed and negative Respiratory: denies: shortness of breath Cardiovascular: chest pain Neurological: denies: headache ED Past Medical Hx - Past Medical History Previous Medical History?: Yes Hx Hypertension: Yes Hx Heart Attack/AMI: No Hx Congestive Heart Failure: No Hx Diabetes: No Hx Deep Vein Thrombosis: No Hx Liver Disease: No Hx Renal Disease: No Hx Sickle Cell Disease: No Hx Seizures: No Hx Asthma: Yes Hx COPD: No Hx HIV: No Additional medical history: bronchitis, Vaginal delivery x 6 - Surgical History Hx Pacemaker: No Hx Internal Defibrillator: No Additional Surgical History: x 2 - Social History Smoking Status: Never Smoker Substance Use Type: None - Medications Home Medications: Home Medications Medication Instructions Recorded Confirmed Last Taken Type labetaloL [Labetalol 200mg TAB] 400 mg PO QDAY 08/16/19 09/17/19 09/17/19 History Albuterol INH(or & Nicu Only) 1 - 2 inhalation INHALATION Q4H PRN 09/17/19 09/17/19 2 Weeks Ago History ~09/03/19 Aspirin [Aspirin BABY CHEW TAB] 81 mg PO DAILY 09/17/19 09/17/19 09/16/19 History Vitamin 1 tab PO DAILY 09/17/19 09/17/19 09/17/19 History Ibuprofen [Motrin] 800 mg PO Q8HR PRN #60 tablet 09/19/19 Unknown Rx labetaloL [Labetalol 200mg TAB] 400 mg PO BID #60 tablet 09/19/19 Unknown Rx oxyCODONE /ACETAMINOPHEN [Percocet 1 tab PO Q6HR PRN #30 tablet 09/19/19 Unknown Rx 5/325] Valsartan 80 mg PO DAILY #90 tablet 10/11/20 Unknown Rx amLODIPine 5 mg PO DAILY #90 tab 10/11/20 Unknown Rx ED Physical Exam - General Limitations: No Limitations General appearance: alert, in no apparent distress, obese - Head Head exam: Present: atraumatic, normocephalic - Eye Eye exam: Present: normal appearance, EOMI - ENT ENT exam: Present: mucous membranes moist - Neck Neck exam: Present: normal inspection - Respiratory Respiratory exam: Present: normal lung sounds bilaterally, chest wall tenderness. Absent: respiratory distress - Cardiovascular Cardiovascular Exam: Present: regular rate, normal rhythm - GI/Abdominal GI/Abdominal exam: Present: soft. Absent: distended, tenderness - Extremities Exam Extremities exam: Present: normal inspection. Absent: pedal edema, calf tenderness - Neurological Exam Neurological exam: Present: alert, oriented X3 - Psychiatric Psychiatric exam: Present: normal affect, normal mood - Skin Skin exam: Present: warm, dry, intact, normal color ED Course Vital Signs 10/13/20 10/14/20 10/14/20 22:39 04:23 07:30 Temperature 98 F Pulse Rate 94 H 81 86 Respiratory 18 16 18 Rate Blood Pressure Blood Pressure 240/148 201/129 206/144 [Right] O2 Sat by Pulse 100 100 100 Oximetry 10/14/20 10/14/20 10/14/20 07:32 08:00 08:03 Temperature Pulse Rate 78 Respiratory 18 Rate Blood Pressure 206/144 201/121 Blood Pressure 201/121 [Right] O2 Sat by Pulse 100 100 100 Oximetry 10/14/20 10/14/20 10/14/20 08:30 09:00 09:12 Temperature Pulse Rate 66 Respiratory 16 Rate Blood Pressure 175/106 145/89 Blood Pressure 145/81 [Right] O2 Sat by Pulse 100 98 100 Oximetry 10/14/20 10/14/20 09:45 09:59 Temperature Pulse Rate 70 Respiratory 16 Rate Blood Pressure 141/86 Blood Pressure 142/77 [Right] O2 Sat by Pulse 100 98 Oximetry ED Medical Decision Making - Lab Data Result diagrams: 10/13/20 23:27 10/13/20 23:27 - EKG Data -: EKG Interpreted by Me EKG shows normal: sinus rhythm, axis, intervals, QRS complexes Rate: tachycardia (rate 101) - EKG Data Interpretation: nonspecific ST-T wave abby - Radiology Data Radiology results: report reviewed, image reviewed - Medical Decision Making 29-year-old female, history of hypertension and cocaine abuse presents to ED with chest pain. EKG shows no ST changes. Troponin negative x2. Patient seems to have more chest wall tenderness. Patient hypertensive on presentation, likely due to a combination of medication noncompliance and also cocaine abuse. BP improved following medication administration. Currently chest pain-free. Spoke with patient regarding the consequences of cocaine use. Advised patient to stop using cocaine. Outpatient follow-up advised. Return precautions given. - Differential Diagnosis Hypertensive emergency, ACS, chest wall pain, CHF Critical care attestation.: If time is entered above; I have spent that time in minutes in the direct care of this critically ill patient, excluding procedure time. ED Disposition Clinical Impression: Cocaine abuse, Uncontrolled hypertension, Chest wall pain Disposition: - TO HOME OR SELFCARE Is pt being admited?: No Condition: Stable Instructions: Nonspecific Chest Pain, Adult, Hypertension, Adult, [id number], Chest Wall Pain, Hypertension (ED) Additional Instructions: Do not use cocaine. It will make your hypertension worse despite taking medications for it. Referrals: PRIMARY CARE, [Primary Care Provider] - 3-5 Days [facility] [Provider Group] - 3-5 Days Time of Disposition: 09:22
[2020-10-14 10:00] VITALS: BP 142/77
--- NOTE | 2020-10-16 11:42 | Electrocardiograph Report ---
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
== END 2020-10-14 10:00 | disposition home or self-care (01) ==
LOC: ED 21:07
DX: I10 Essential (primary) hypertension (principal); F14.10 Cocaine abuse, uncomplicated; R07.89 Other chest pain; J45.909 Unspecified asthma, uncomplicated; Z79.899 Other long term (current) drug therapy
CPT/HCPCS: 36415; 71046; 80053; 80307; 81001; 84484; 84703; 85025; 93005

== ENCOUNTER 2021-01-08 10:31 | Emergency (ER) | payer MEDICAID ==
[2021-01-08] MEDS ORDERED: HYDROcodone/ACETAMINOPHEN 5-325 MG TAB PO ONE (10:48)
--- NOTE | 2021-01-08 10:51 | Emergency Department Report ---
ED Lower Extremity HPI - General Chief Complaint: Extremity Injury, Lower Stated Complaint: FEEL ON LT FOOT Time Seen by Provider: 01/08/21 10:47 Source: patient Mode of arrival: Wheelchair Limitations: Physical Limitation - History of Present Illness Initial Comments: 30-year-old female presents to the ER today with complaints of left ankle pain. Patient states that she was walking in her room last night around 11:00. She states that it was dark, when she tripped and fell injuring her left ankle. She states that she felt like all her weight went onto that left ankle. She states that she has been having pain and swelling to the left ankle since the incident last night. She reports decreased movement of the left ankle due to pain and inability to ambulate on the left ankle due to pain. She denies any apparent bruising or erythema or open wounds. She states that she did take a BC powder prior to coming in. She denies any prior surgery or injury to her ankle or foot in the past. MD Complaint: ankle injury -: Sudden, Last night (around 11pm) - Related Data Home Medications Medication Instructions Recorded Confirmed Last Taken labetaloL [Labetalol 200mg TAB] 400 mg PO QDAY 08/16/19 09/17/19 09/17/19 Albuterol INH(or & Nicu Only) 1 - 2 inhalation INHALATION Q4H PRN 09/17/19 09/17/19 2 Weeks Ago ~09/03/19 Aspirin [Aspirin BABY CHEW TAB] 81 mg PO DAILY 09/17/19 09/17/19 09/16/19 Vitamin 1 tab PO DAILY 09/17/19 09/17/19 09/17/19 Previous Rx's Medication Instructions Recorded Last Taken Type labetaloL [Labetalol 200mg TAB] 400 mg PO BID #60 tablet 09/19/19 Unknown Rx Valsartan 80 mg PO DAILY #90 tablet 10/11/20 Unknown Rx amLODIPine 5 mg PO DAILY #90 tab 10/11/20 Unknown Rx HYDROcodone/APAP 5-325 [[place] 1 each PO Q6HR PRN #12 tablet 01/08/21 Unknown Rx 5/325] Ibuprofen [Motrin 800 MG tab] 800 mg PO Q8HR PRN #60 tablet 01/08/21 Unknown Rx Allergies Allergy/AdvReac Type Severity Reaction Status Date / Time No Known Allergies Allergy Verified 09/17/19 11:26 ED Review of Systems ROS: Stated complaint: FEEL ON LT FOOT Other details as noted in HPI Comment: All other systems reviewed and negative Musculoskeletal: joint swelling, arthralgia Neurological: abnormal gait. denies: headache, weakness, numbness, parest hesias, confusion Psychiatric: denies: anxiety, depression, auditory hallucinations, visual hallucinations, suicidal thoughts Hematological/Lymphatic: denies: easy bleeding, easy bruising ED Past Medical Hx - Past Medical History Hx Hypertension: Yes Hx Heart Attack/AMI: No Hx Congestive Heart Failure: No Hx Diabetes: No Hx Deep Vein Thrombosis: No Hx Liver Disease: No Hx Renal Disease: No Hx Sickle Cell Disease: No Hx Seizures: No Hx Asthma: Yes Hx COPD: No Hx HIV: No Additional medical history: bronchitis, Vaginal delivery x 6 - Surgical History Hx Pacemaker: No Hx Internal Defibrillator: No Additional Surgical History: x 2 - Social History Smoking Status: Never Smoker Substance Use Type: None - Medications Home Medications: Home Medications Medication Instructions Recorded Confirmed Last Taken Type labetaloL [Labetalol 200mg TAB] 400 mg PO QDAY 08/16/19 09/17/19 09/17/19 History Albuterol INH(or & Nicu Only) 1 - 2 inhalation INHALATION Q4H PRN 09/17/19 09/17/19 2 Weeks Ago History ~09/03/19 Aspirin [Aspirin BABY CHEW TAB] 81 mg PO DAILY 09/17/19 09/17/19 09/16/19 History Vitamin 1 tab PO DAILY 09/17/19 09/17/19 09/17/19 History labetaloL [Labetalol 200mg TAB] 400 mg PO BID #60 tablet 09/19/19 Unknown Rx Valsartan 80 mg PO DAILY #90 tablet 10/11/20 Unknown Rx amLODIPine 5 mg PO DAILY #90 tab 10/11/20 Unknown Rx HYDROcodone/APAP 5-325 [[place] 1 each PO Q6HR PRN #12 tablet 01/08/21 Unknown Rx 5/325] Ibuprofen [Motrin 800 MG tab] 800 mg PO Q8HR PRN #60 tablet 01/08/21 Unknown Rx ED Physical Exam - General Limitations: Physical Limitation General appearance: alert, in distress (secondary to pain ), obese - Head Head exam: Present: atraumatic, normocephalic - Eye Eye exam: Present: normal appearance, PERRL, EOMI Pupils: Present: normal accommodation - Respiratory Respiratory exam: Absent: respiratory distress - Cardiovascular Cardiovascular Exam: Present: regular rate - Expanded Lower Extremity Exam Left Ankle exam: Present: tenderness (Moderate tenderness to the lateral aspect of the left ankle), swelling (Mild to moderate swelling noted to the lateral aspect of the left ankle). Absent: full ROM (Range of motion of the ankle reduced due to pain), abrasion, laceration, ecchymosis, deformity, crepidus, dislocation, erythema Foot/Toe exam: Present: normal inspection. Absent: tenderness, swelling, abrasion, laceration, ecchymosis, deformity, crepidus, dislocation, erythema, amputation, puncture wound, foreign body, calcaneal tenderness, tenderness at base of 5th metatarsal Neuro vascular tendon exam: Present: no vascular compromise. Absent: abnormal cap refill, motor deficit, sensory deficit Gait: Positive: not tested/not observed - Neurological Exam Neurological exam: Present: alert, oriented X3, CN II-XII intact - Psychiatric Psychiatric exam: Present: normal affect, normal mood - Skin Skin exam: Present: intact ED Course Vital Signs 01/08/21 01/08/21 10:45 13:16 Temperature 98.6 F Pulse Rate 83 Respiratory 20 Rate Blood Pressure 195/128 Blood Pressure 189/99 [Right] O2 Sat by Pulse 100 Oximetry ED Lower Extremity MDM - Radiology Data Radiology results: report reviewed Patient: ISAIAH LOWE MR#: [id number] : 1990 Acct:[id number] Age/Sex: 30 / F ADM Date: 01/08/21 Loc: ED Attending Dr: Ordering Physician: JULES RONQUILLO Date of Service: 01/08/21 Procedure(s): XR foot 3+V LT Accession Number(s): [id number] cc: JULES RONQUILLO Fluoro Time In Minutes: Left ankle-3 views Left foot-3 views INDICATION: Twisted ankle/pain/swelling. COMPARISON: None. IMPRESSION: No acute osseous abnormality in the ankle or foot. Moderate soft tissue swelling about the lateral aspect of the ankle. Normal alignment and no significant DJD in the ankle or foot. Signer Name: Les Amaral MD Signed: 01/08/2021 11:26 AM Workstation Name: [id number] Transcribed By: QUINTIN Dictated By: Les Amaral MD Electronically Authenticated By: Les Amaral MD Signed Date/Time: 01/08/211125 DD/ 23 TD/TT: - Medical Decision Making X-ray shows moderate soft tissue swelling about the lateral aspect of the ankle but otherwise no dislocation or fracture noted to the ankle or the foot. X-ray results discussed with patient. Suspect sprain at this time but she was instructed to follow-up with account review specialist in 1 to 2 weeks if her symptoms not getting any better. She was placed in ankle air splint with Joe wrap and given crutches. Patient blood pressure was noted to be elevated during stay, but she does admit that she had not taken any of her blood pressure medication today. Patient currently has no symptoms related to help high blood pressure, no evidence of endorgan damage on history and physical today. Patient instructed to take her blood pressure medication as soon as she got home. Patient expressed understanding of all instructions and agree with plan. Patient was stable at time of discharge Critical care attestation.: If time is entered above; I have spent that time in minutes in the direct care of this critically ill patient, excluding procedure time. ED Disposition Clinical Impression: Ankle sprain Disposition: -01 TO HOME OR SELFCARE Is pt being admited?: No Does the pt Need Aspirin: No Condition: Stable Instructions: Ankle Sprain, [id number], Elastic Bandage and RICE Therapy, How to Use Cold Therapy Additional Instructions: I recommend that you rest, ice and elevate your leg as often as possible for the next 3 to 4 days. Use the Joe wrap and ankle air splint and crutches as directed. Follow-up with the account review specialist listed on your discharge instructions if your symptoms persist for another 1 to 2 weeks. Take the hydrocodone and the ibuprofen as prescribed for pain. Return to the ER if your symptoms changes or worsens in any way. Prescriptions: Ibuprofen [Motrin 800 MG tab] 800 mg PO Q8HR PRN #60 tablet PRN Reason: Pain, Mild (1-3) HYDROcodone/APAP 5-325 [[place] 5/325] 1 each PO Q6HR PRN #12 tablet PRN Reason: Pain Referrals: FAROOQ REYNOLDS MD [Staff Physician] - 7-10 days Forms: Work/School Release Form(ED) Time of Disposition: 12:06
--- NOTE | 2021-01-08 11:30 | XRay Report ---
Left ankle-3 views Left foot-3 views INDICATION: Twisted ankle/pain/swelling. COMPARISON: None. IMPRESSION: No acute osseous abnormality in the ankle or foot. Moderate soft tissue swelling about the lateral aspect of the ankle. Normal alignment and no significant DJD in the ankle or foot. Signer Name: Les Amaral MD Signed: 01/08/2021 11:26 AM Workstation Name: [id number]
[2021-01-08 13:16] VITALS: BP 189/99
== END 2021-01-08 13:15 | disposition home or self-care (01) ==
LOC: ED 10:31
DX: S93.402A Sprain of unspecified ligament of left ankle, initial encounter (principal); I10 Essential (primary) hypertension; J45.909 Unspecified asthma, uncomplicated; Z98.890 Other specified postprocedural states; Y93.01 Activity, walking, marching and hiking; Y93.89 Activity, other specified; Y92.098 Other place in other non-institutional residence as the place of occurrence of the external cause; Y99.8 Other external cause status
CPT/HCPCS: 99284

== ENCOUNTER 2021-07-08 12:10 | Emergency (ER) | payer MEDICAID ==
[2021-07-08] MEDS ORDERED: ASPIRIN 325 MG TAB PO ONE (12:38)
--- NOTE | 2021-07-08 12:52 | Event Note ---
ED Screening Note Date of service: 07/08/21 Time: 12:50 ED Screening Note: 30-year-old -[place] female presents to the ER today with complaint of substernal chest pain. Onset 2 weeks ago. Has been intermittent in nature but becoming more frequent. She states that the pain starts substernally, then it would radiate into her right chest and down into the left arm. She reports associated shortness of breath with the pain and also on exertion. She reports nausea which tends to occur randomly and not necessarily associated with the pain. She denies any diaphoresis. She denies any lower extremity swelling or calf pain. She denies any recent URI symptoms or cough. She has not been diagnosed with COVID-19 recently. She has not gotten any of the COVID-19 vaccines. She denies any known history of heart disease, PE or DVT. She has never had a stress test in the past. Patient past medical history significant for hypertension for which she takes carvedilol. Also remote history of asthma when she was a child. This initial assessment/diagnostic orders/clinical plan/treatment(s) is/are subject to change based on patients health status, clinical progression and re- assessment by fellow clinical providers in the ED. Further treatment and workup at subsequent clinical providers discretion. Patient/guardian urged not to elope from the ED as their condition may be serious if not clinically assessed and managed. Initial orders include: Chest pain work-up
[2021-07-08 13:32] LABS: Basophils # (Auto) 0.1 K/mm3 (0.0-0.1); Basophils % (Auto) 2.3 % (0.0-1.8); Eosinophils # (Auto) 0.1 K/mm3 (0.0-0.4); Eosinophils % (Auto) 1.7 % (0.0-4.3); Hemoglobin 13.2 gm/dl (10.1-14.3); Lymphocytes # (Auto) 1.5 K/mm3 (1.2-5.4); Lymphocytes % (Auto) 29.5 % (13.4-35.0); Mean Corpuscular HGB Conc 33 % (30-34); Mean Corpuscular Volume 87 fl (79-97); Monocytes # (Auto) 0.2 K/mm3 (0.0-0.8); Monocytes % (Auto) 4.8 % (0.0-7.3); Platelet Count 294 K/mm3 (140-440); Red Cell Distribution Width 12.6 % (13.2-15.2)
[2021-07-08 13:51] LABS: Alanine Aminotransferase 10 units/L (7-56); Albumin 4.3 g/dL (3.9-5); BUN/Creatinine Ratio 9; Blood Urea Nitrogen 7 mg/dL (7-17); Calcium 9.5 mg/dL (8.4-10.2); Hemolysis Index 8
--- NOTE | 2021-07-08 14:02 | XRay Report ---
CHEST 2 VIEWS INDICATION / CLINICAL INFORMATION: Chest Pain. COMPARISON: 2 views of the chest from 10/14/2020. FINDINGS: SUPPORT DEVICES: None. HEART / MEDIASTINUM: No significant abnormality. LUNGS / PLEURA: No significant pulmonary abnormality. No significant pleural effusion. No pneumothora x. ADDITIONAL FINDINGS: No significant additional findings. IMPRESSION: 1. No acute abnormality of the chest. Signer Name: Wayne Pavon MD Signed: 07/08/2021 1:57 PM Workstation Name: [id number]
--- NOTE | 2021-07-08 15:11 | Emergency Department Report ---
ED Chest Pain HPI - General Chief Complaint: Chest Pain Stated Complaint: CHEST PAIN/NAUSEA Time Seen by Provider: 07/08/21 15:09 Source: patient Mode of arrival: Ambulatory Limitations: No Limitations - History of Present Illness Initial Comments: 30-year-old -[place] female presents to the ER today with complaint of substernal chest pain. Onset 2 weeks ago. Has been intermittent in nature but becoming more frequent. She states that the pain starts substernally, then it would radiate into her right chest and down into the left arm. She reports associated shortness of breath with the pain and also on exertion. She reports nausea which tends to occur randomly and not necessarily associated with the pain. She denies any diaphoresis. She denies any lower extremity swelling or calf pain. She denies any recent URI symptoms or cough. She has not been diagnosed with COVID-19 recently. She has not gotten any of the COVID-19 vaccines. She denies any known history of heart disease, PE or DVT. She has never had a stress test in the past. Patient past medical history significant for hypertension for which she takes carvedilol. Also remote history of asthma when she was a child. She denies tobacco use. Denies illicit drug use. She denies any known family history of heart disease -: week(s) (2) Severity scale (0 -10): 0 - Related Data Home Medications Medication Instructions Recorded Confirmed Last Taken labetaloL [Labetalol 200mg TAB] 400 mg PO QDAY 08/16/19 07/08/21 09/17/19 Albuterol INH(or & Nicu Only) 1 - 2 inhalation INHALATION Q4H PRN 09/17/19 07/08/21 2 Weeks Ago ~09/03/19 Aspirin [Aspirin BABY CHEW TAB] 81 mg PO DAILY 09/17/19 07/08/21 09/16/19 Vitamin 1 tab PO DAILY 09/17/19 07/08/21 09/17/19 Previous Rx's Medication Instructions Recorded Last Taken Type Valsartan 80 mg PO DAILY #90 tablet 10/11/20 Unknown Rx amLODIPine 5 mg PO DAILY #90 tab 10/11/20 Unknown Rx HYDROcodone/APAP 5-325 [Winter 1 each PO Q6HR PRN #12 tablet 01/08/21 Unknown Rx 5/325] Ibuprofen [Motrin 800 MG tab] 800 mg PO Q8HR PRN #60 tablet 01/08/21 Unknown Rx labetaloL [Labetalol 200mg TAB] 400 mg PO BID #60 tablet 07/08/21 Unknown Rx Allergies Allergy/AdvReac Type Severity Reaction Status Date / Time No Known Allergies Allergy Verified 07/08/21 13:42 Heart Score - HEART Score History: Slightly suspicious EKG: Non-specific Age: < 45 Risk factors: 1-2 risk factors Troponin: < normal limit HEART Score: 2 - EKG Read Time Time EKG Completed: 12:35 EKG Read Time: 12:51 - Critical Actions Critical Actions: 0-3 pts:0.9-1.7%risk of adverse cardiac event.Candidate for discharge ED Review of Systems ROS: Stated complaint: CHEST PAIN/NAUSEA Other details as noted in HPI ED Past Medical Hx - Past Medical History Hx Hypertension: Yes Hx Heart Attack/AMI: No Hx Congestive Heart Failure: No Hx Diabetes: No Hx Deep Vein Thrombosis: No Hx Liver Disease: No Hx Renal Disease: No Hx Sickle Cell Disease: No Hx Seizures: No Hx Asthma: Yes Hx COPD: No Hx HIV: No Additional medical history: bronchitis, Vaginal delivery x 6 - Surgical History Hx Pacemaker: No Hx Internal Defibrillator: No Additional Surgical History: x 2 - Social History Smoking Status: Never Smoker Substance Use Type: None - Medications Home Medications: Home Medications Medication Instructions Recorded Confirmed Last Taken Type labetaloL [Labetalol 200mg TAB] 400 mg PO QDAY 08/16/19 07/08/21 09/17/19 History Albuterol INH(or & Nicu Only) 1 - 2 inhalation INHALATION Q4H PRN 09/17/19 07/08/21 2 Weeks Ago History ~09/03/19 Aspirin [Aspirin BABY CHEW TAB] 81 mg PO DAILY 09/17/19 07/08/21 09/16/19 History Vitamin 1 tab PO DAILY 09/17/19 07/08/21 09/17/19 History Valsartan 80 mg PO DAILY #90 tablet 10/11/20 07/08/21 Unknown Rx amLODIPine 5 mg PO DAILY #90 tab 10/11/20 07/08/21 Unknown Rx HYDROcodone/APAP 5-325 [Winter 1 each PO Q6HR PRN #12 tablet 01/08/21 07/08/21 Unknown Rx 5/325] Ibuprofen [Motrin 800 MG tab] 800 mg PO Q8HR PRN #60 tablet 01/08/21 07/08/21 Unknown Rx labetaloL [Labetalol 200mg TAB] 400 mg PO BID #60 tablet 07/08/21 Unknown Rx ED Physical Exam - General Limitations: No Limitations ED Course Vital Signs 07/08/21 07/08/21 07/08/21 12:20 13:40 14:41 Temperature 98.3 F 98.7 F 97.8 F Pulse Rate 92 H 78 75 Respiratory 18 16 18 Rate Blood Pressure 236/122 158/90 194/114 [Right] O2 Sat by Pulse 99 99 99 Oximetry 07/08/21 16:32 Temperature Pulse Rate 70 Respiratory Rate Blood Pressure 210/120 [Right] O2 Sat by Pulse Oximetry ED Medical Decision Making - Lab Data Result diagrams: 07/08/21 13:02 07/08/21 13:02 - EKG Data EKG shows normal: sinus rhythm Rate: normal (76) - EKG Data Interpretation: LVH, other (early repol changes ) - Radiology Data Radiology results: report reviewed Patient: ISAIAH LOWE MR#: [id number] : 1990 Acct:[id number] Age/Sex: 30 / F ADM Date: 07/08/21 Loc: ED Attending Dr: Ordering Physician: JULES RONQUILLO Date of Service: 07/08/21 Procedure(s): XR chest routine 2V Accession Number(s): [id number] cc: JULES RONQUILLO Fluoro Time In Minutes: CHEST 2 VIEWS INDICATION / CLINICAL INFORMATION: Chest Pain. COMPARISON: 2 views of the chest from 10/14/2020. FINDINGS: SUPPORT DEVICES: None. HEART / MEDIASTINUM: No significant abnormality. LUNGS / PLEURA: No significant pulmonary abnormality. No significant pleural effusion. No pneumothorax. ADDITIONAL FINDINGS: No significant additional findings. IMPRESSION: 1. No acute abnormality of the chest. Signer Name: Wayne Pavon MD Signed: 07/08/2021 1:57 PM Workstation Name: [id number] Transcribed By: MN Dictated By: Wayne Pavon MD Electronically Authenticated By: Wayne Pavon MD Signed Date/Time: 07/08/21 1357 DD/ 1357 TD/TT: - Medical Decision Making Labs reviewed -- CBC and cmp unremarkable. Trop x 2 negative. EKG shows LVH changes but no STEMI or significant dysrhythmia. CXR shows nothing acute. Her serum HCG was positive. Patient currently in her room and talking on her phone. She denies any chest pain currently. She is not in any acute pain or respiratory distress. She is not toxic or ill-appearing. She has a normal gait. Discussed lab results with patient including a positive hCG. She admits that the last time she had a menstrual cycle was sometime in May. She had not taken a home test. She states that she this will be her 10th . She is G 10 P 10 (1 twin gestation) Ab0. She currently has no abdominal pain or abnormal vaginal bleeding. Vital signs throughout stay shows that patient has been persistently hypertensive but when you review her past vitals from a past visits that she has a history of chronic poorly controlled hypertension. States that she is curr ently on Coreg twice a day. She did take her morning dose prior to coming in. She does admit that even when at home her blood pressure still remains elevated. Given her state, patient will be taken off Coreg and restarted on labetalol which she has taken before in the past and recommend she take a dose today. Patient currently has a heart score of 2. She is not currently tachycardic or hypoxic and she has no lower extremity swelling or calf pain. Though she is I still do not suspect that her symptoms is related to PE at this time (discussed this with Dr Kelly Mora and agree that there is no concern for it at this time). Patient states that she is unsure whether she is going to keep this given the fact that she has had 5 C-sections in the past has had issues with preeclampsia in the past. Informed patient that she will need to talk to her RAIL DIRECTOR who can help her make a decision but until then she will need to start Coreg and take Tylenol only for pain. She can also start taking vitamins from [id number]. Patient information will also be faxed to the [facility] [place] so she can get an outpatient cardiac follow-up. Patient understands that if her symptoms changes or worsens in any way to return to the ER. Patient was stable at time of discharge. Critical care attestation.: If time is entered above; I have spent that time in minutes in the direct care of this critically ill patient, excluding procedure time. ED Disposition Clinical Impression: Nonspecific chest pain, Chronic hypertension, state, incidental Disposition: HOME / SELF CARE / HOMELESS Is pt being admited?: No Does the pt Need Aspirin: No Condition: Stable Instructions: Nonspecific Chest Pain, Adult, [id number], Managing Your Hypertension, Hypertension During , Hypertension (ED) Additional Instructions: Recommend that you stop the Coreg for your blood pressure and start taking the labetalol as you were found to be today. You can start taking the labetalol today. You can take Tylenol as needed to help with pain. I do recommend close follow-up with your RAIL DIRECTOR at [facility] either this week or next week to help you further decide what you want to do about this . Also recommend close follow-up with your primary care doctor for continued monitoring of your blood pressure and also referral to cardiology for outpatient stress testing. A cloth laminating supervisor will also be listed on your discharge instructions for follow-up. Your information will also be sent to [facility] [place] where you can contact you for follow-up with cloth laminating supervisor. If any point your symptoms worsens return immediately to the ER. Prescriptions: labetaloL [Labetalol 200mg TAB] 400 mg PO BID #60 tablet Referrals: EDITH ROWE MD [Staff Physician] - 3-5 Days [facility] [Provider Group] - 3-5 Days Forms: Work/School Release Form(ED) Time of Disposition: 15:51
[2021-07-08 16:34] VITALS: BP 210/120
--- NOTE | 2021-07-10 14:28 | Electrocardiograph Report ---
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
== END 2021-07-08 16:34 | disposition home or self-care (01) ==
LOC: ED 12:10
DX: O16.9 Unspecified maternal hypertension, unspecified trimester (principal); R07.9 Chest pain, unspecified; J45.909 Unspecified asthma, uncomplicated; Z98.890 Other specified postprocedural states; Z3A.00 Weeks of gestation of pregnancy not specified
CPT/HCPCS: 36415; 71046; 80053; 84484; 84703; 85025; 93005; 93010; 99284